=== PATIENT | male | born 1980 | race Two or more races ===

== ENCOUNTER → 2020-06-14 11:41 | Outpatient (BNVA) | payer OTHER, SELFPAY | PROVIDERS: PCP Nurse Practitioner Family; Referring Provider Nurse Practitioner Family; Visit Provider Surgery | DX: Z09 Encounter for follow-up examination after completed treatment for conditions other than malignant neoplasm (principal); Z87.2 Personal history of diseases of the skin and subcutaneous tissue | CPT/HCPCS: 99212; 99213 ==

== ENCOUNTER 2020-07-17 11:59 | Day surgery (SDC) | payer OTHER, SELFPAY ==
[2020-07-12 11:20] VITALS: BMI 27.6
[2020-07-17 12:19] VITALS: BP 118/93; PULSE 86; RESP 16; TEMP 36.6; O2SAT 96
--- NOTE | 2020-07-17 12:37 | MHC.SHP ---
Pre-Procedural Eval Section B Chief Complaint: Family Hx of Colon Cancer in father Details of Present Illness: father with CRC Relevant Family History (Specify if Yes): Yes Relevant Social History: Alcohol Use Present Medications: see Short Stay Collaborative assessment Medical History: Significant History (smoker) History of Previous Operations: Relevant previous surgery/procedure and date(s) (excision mass arm) Allergies: Allergies Allergy/AdvReac Type Severity Reaction Status Date / Time No Known Allergies Allergy Verified 06/14/20 11:57 [No Known Allergies*] Review of Systems Sugical H&P ROS: Negative: Constitution, Cardiovascular, Respiratory, Neurological, Psychiatric, Hem-Onc, Allergic/Immunologic, Gastrointestinal, Genitourinary, Musculoskeletal, Integumentary, Endocrine and Eyes/Ears/Nose/Throat Exam Surgical H&P Exam: Significant Findings: Extremities (scar left arm) Plan Diagnosis/Plan: Unchanged Patient has been examined and remains a candidate for the planned procedure
--- NOTE | 2020-07-17 12:40 | PC.NURSE ---
while iv starting patient was diaphoretic and heart rate started to drop. supine, cold cloth applied, fluids wide open.
[2020-07-17 12:42] VITALS: BP 126/83; PULSE 58
--- NOTE | 2020-07-17 12:47 | PC.NURSE ---
md perkins aware of patients near vagal response to iv insertion
--- NOTE | 2020-07-17 12:54 | HO.ANESPROP2 ---
HPI - Anesthesia Eval Consult details Narrative: 39 M for coloncscopy [facility] Past Medical History Medical History Epidermal inclusion cyst Social History Social History Alcohol intake: current Smoking Status: Current every day smoker Advance Directives: No Advance Directives Information Provided: No Advance Directives on File: No Meds Allergies Allergy/AdvReac Type Severity Reaction Status Date / Time No Known Allergies Allergy Verified 06/14/20 11:57 [No Known Allergies*] Exam Exam Date and Time: July 17, 2020 1254 Height,Weight and Vital Signs: Height 5 ft 10 in Weight 87.543 kg Last Vital Signs Temp 97.9 F 07/17/20 12:19 Pulse 58 07/17/20 12:42 Resp 16 07/17/20 12:19 BP 126/83 07/17/20 12:42 Pulse Ox 96 07/17/20 12:19 Airway Mallampati Class: II TM Dist: >3cm Neck ROM: Full Loose/Missing/Broken Teeth: No Heart: rrr Lungs: nl Other: ao Assessment and Plan Assessment Anesthesia Assessment: Anesthesia Plan Discussed and Chart Reviewed Final Anesthetic Review NPO: Yes ASA Class: I Final Preanesthetic Review: No Changes in Pt Med Stat, Meds/Allgs Chart Reviewed, Consent Obtained/Reviewed and Anes Risks/Benef Reviewed Patient Risk: Low Procedure Risk: Low Anesthetic Plan Anesthetic Plan: MAC: Disposition: Standard PACU
[2020-07-17] MEDS: Lactated Ringers 1,000 ML 50 ML IVCONT (12:55)
--- NOTE | 2020-07-17 13:15 | PM.OP ---
Brief Operative Note Date of Service: 07/17/20 Pre-op diagnosis: rectal bleeding, FH CRC in father aged 50's Post-op diagnosis: same Procedure: see op note Surgeon: Oni Pierre MD Anesthesia: MAC Estimated blood loss (mL): 0 Condition: stable Disposition: PACU
--- NOTE | 2020-07-17 13:16 | W.PM.OPN ---
Operative Note Operative Note Date of Service: 07/17/20 Narrative: Operative Information Procedure Description: Colonoscopy COLONOSCOPY Instrument: Olympus variable stiffness pediatric scope 190L Colonoscopy Monitoring: Vital signs and clinical assessment, continuous EKG monitoring, Pulse oximetry, Carbon Dioxide monitoring and blood pressure monitoring were done throughout the procedure. Colon withdrawal time was 6 minutes. Procedure: The patient was placed in the left lateral decubitis position and pre-procedure medications were administered. After a digital rectal examination of the ano-rectum, the video colonoscope was inserted into the rectum and advanced through the colon to the cecum/TI. The colonoscope was slowly withdrawn in a retrograde panoramic fashion and the colon mucosa was carefully examined including a retroflexed view of the rectum. Findings and interventions are described below. Procedure Difficulty:easy Findings: Terminal Ileum-normal Cecum:normal Ascending Colon: normal Transverse Colon -normal Descending Colon:normal Sigmoid Colon: normal Rectum: Retroflexion with small inflammed internal hemorrhoids with red farris indicating recent bleeding, grade I, 10 mm sessile polyp removed with cold snare and retrieved Anorectum - normal Colon preparation: [place] Bowel Preparation Scale Right colon; 3 Transverse colon: 3 Left colon; 3 (0 = Unprepared colon segment with mucosa not seen due to solid stool that cannot be cleared. 1 = Portion of mucosa of the colon segment seen, but other areas of the colon segment not well seen due to staining, residual stool and/or opaque liquid. 2 = Minor amount of residual staining, small fragments of stool and/or opaque liquid, but mucosa of colon segment seen well. 3 = Entire mucosa of colon segment seen well with no residual staining, small fragments of stool or opaque liquid) Impression and Post Procedure Diagnosis: internal hemorrhoids polyp Plan: High fiber diet leaflet Avoid straining at stool, epsom salts and sitz bath prn, anusol supps or cream prn, if rectal bleeding persists then refer to Dr Buck for further treatment Repeat Colonoscopy in 5 years or earlier if clinically indicated Above findings were reviewed with the patient and relevant handouts were provided if indicated.
[2020-07-17 13:20] VITALS: BP 109/67; PULSE 73; RESP 20; TEMP 36.6; O2SAT 95
[2020-07-17 13:38] VITALS: BP 123/79; PULSE 58; RESP 16; TEMP 36.6; O2SAT 96
== END 2020-07-17 14:15 | disposition home or self-care (01) ==
PROVIDERS: PCP Nurse Practitioner Family; Visit Provider Internal Medicine Gastroenterology
PROC: 0DJD8ZZ Inspection of Lower Intestinal Tract, Via Natural or Artificial Opening Endoscopic (ICD-10-PCS; CPT 45378; principal; 2020-07-17 13:30)
DX: K62.5 Hemorrhage of anus and rectum (principal); Z80.0 Family history of malignant neoplasm of digestive organs; Z83.71 Family history of colonic polyps; K64.0 First degree hemorrhoids; F17.210 Nicotine dependence, cigarettes, uncomplicated
CPT/HCPCS: 45385; 88305

== ENCOUNTER 2020-08-10 08:54 | Outpatient (REF) | payer OTHER, SELFPAY ==
[2020-08-10 09:44] LABS: MANUAL DIFF FLAG NO
[2020-08-10 09:55] LABS: Basophils Absolute Auto 0.1 X10*3/uL (0.0-0.2); Basophils Percent Auto 1.1 % (0-2); Eosinophils Absolute Auto 0.1 X10*3/uL (0.0-0.4); Eosinophils Percent Auto 1.6 % (0-4); Hematocrit 48.4 % (42-52); Hemoglobin 16.6 g/dl (14.0-18.0); Imm Gran Abs Auto 0.06 X10*3/uL (0.00-0.03); Imm Gran Pct Auto 0.7 % (0.0-0.4); Lymphocytes Absolute Auto 2.6 X10*3/uL (1.2-4.9); Mean Corpuscular HGB Conc 34.3 g/dl (31.0-36.0); Mean Corpuscular Hemoglobin 32.9 pg (27.0-33.0); Mean Corpuscular Volume 95.8 fL (80-98); Mean Platelet Volume 9.1 fL (9.4-12.4); Monocytes Absolute Auto 0.8 X10*3/uL (0.1-1.2); Monocytes Percent Auto 9.1 % (2-11); Neutrophils Absolute Auto 4.9 X10*3/uL (2.0-8.3); Neutrophils Percent Auto 57.5 % (45-73); Platelet Count 304 X10*3/uL (160-400); Red Blood Count 5.05 X10*6/uL (4.60-5.80); Red Cell Distribution Width 13.2 % (11.0-16.0); White Blood Count 8.6 X10*3/uL (4.8-10.8)
[2020-08-10 10:28] LABS: Anion Gap 15 (12-20); Blood Urea Nitrogen 12 mg/dL (9-16); Calcium 9.3 mg/dL (8.4-10.2); Carbon Dioxide 27 mmol/L (22-29); Chloride 102 mmol/L (96-108); Estimated Glomerular Filt Rate > 60; Glucose Fasting 95 mg/dL (60-99); Potassium 4.3 mmol/l (3.3-5.1); Sodium 140 mmol/L (135-145)
== END 2020-08-10 08:55 | disposition home or self-care (01) ==
LOC: HO.LAB 08:54
PROVIDERS: PCP Internal Medicine; Referring Provider Nurse Practitioner Family; Visit Provider Internal Medicine
DX: Z20.828 Contact with and (suspected) exposure to other viral communicable diseases (principal)
CPT/HCPCS: 36415; 80048; 85025; C9803; U0003

== ENCOUNTER 2021-02-12 13:25 | Emergency (ER) | payer OTHER, SELFPAY ==
--- NOTE | ~2021-02-12 | XR_ITS ---
EXAMINATION: RIGHT SHOULDER AND SCAPULA CLINICAL INFORMATION: Injury with pain COMPARISON: None TECHNIQUE: 2 views right shoulder and one view scapula FINDINGS: No acute scapular fracture is identified. No acute fracture or dislocation of the right shoulder is seen. No narrowing or spurring about the glenohumeral joint is seen. No widening of the coracoclavicular space is seen. There is a bony density seen overlying the humeral head measuring approximately 4 mm in diameter. This may represent bone island or calcified structure overlying the humeral head. No destructive lytic or sclerotic lesions of the humeral head seen. XR/XR shoulder RT min 2V IMPRESSION: No acute fracture or dislocation of the right shoulder or scapula.
--- NOTE | ~2021-02-12 | XR_ITS ---
EXAMINATION: RIGHT SHOULDER AND SCAPULA CLINICAL INFORMATION: Injury with pain COMPARISON: None TECHNIQUE: 2 views right shoulder and one view scapula FINDINGS: No acute scapular fracture is identified. No acute fracture or dislocation of the right shoulder is seen. No narrowing or spurring about the glenohumeral joint is seen. No widening of the coracoclavicular space is seen. There is a bony density seen overlying the humeral head measuring approximately 4 mm in diameter. This may represent bone island or calcified structure overlying the humeral head. No destructive lytic or sclerotic lesions of the humeral head seen. XR/XR scapula RT IMPRESSION: No acute fracture or dislocation of the right shoulder or scapula.
[2021-02-12 13:53] VITALS: BP 148/101; PULSE 61; RESP 18; TEMP 36.8; O2SAT 98; BMI 27.0
--- NOTE | 2021-02-12 16:04 | ED.EXTPRO ---
HPI - Extremity Problem General Chief complaint: Extremity Injury, Upper Stated complaint: shoulder to arm pain Time Seen by Provider: 02/12/21 15:29 History of Present Illness HPI Narrative: Patient complains of right shoulder and right scapular pain that radiates intermittently with tingling and pain down to his fingertips, this is been going on for some months, he injured it in a fall several months ago, denies any neck pain no weakness no loss of sensation Related Data Previous Rx's Medication Instructions Recorded nicotine 14 mg/24 hr daily 1 patch TRANSDERMAL DAILY 28 Days 12/28/20 transdermal patch #28 ea nicotine 21 mg/24 hr daily 1 patch TRANSDERMAL DAILY 28 Days 12/28/20 transdermal patch #28 ea nicotine 7 mg/24 hr daily 1 patch TRANSDERMAL Q24H 28 Days 12/28/20 transdermal patch #28 ea ibuprofen 600 mg PO Q6H PRN #20 tab 02/12/21 Allergies Allergy/AdvReac Type Severity Reaction Status Date / Time No Known Allergies Allergy Verified 09/04/20 15:38 [No Known Allergies*] Review of Systems Review of Systems: positive for right shoulder pain radiating to right fingers, patient did have all a knee injury a fall injury 2 months ago and has had pain and tingling since Negatives are no fever no chills no dizziness no weakness no fainting no loss of consciousness no headache no neck pain no chest pain no shortness of breath no new loss of sensation no weakness no skin rash Yes all other systems are reviewed and are negative [facility] Past Medical History Source: nursing notes reviewed Medical History Epidermal inclusion cyst Sleep apnea Family History Family History Unknown Diabetes Social History Social History (Updated 02/19/21 @ 08:27 by Page Reddy CMA) Alcohol intake: current Current occupational status: employed Current occupation: [employer] Physical Exam Vital Signs: Vital Signs: Last Vital Signs Temp 98.2 F 02/12/21 13:53 Pulse 61 02/12/21 13:53 Resp 18 02/12/21 13:53 BP 148/101 H 02/12/21 13:53 Pulse Ox 98 02/12/21 13:53 Body Mass Index 27.0 general appearance is no distress Head is normocephalic atraumatic Neck is supple and nontender with full range of motion The chest is clear to auscultation bilateral with no tenderness to chest wall The back has full range of motion The extremities the right shoulder had limited range of motion due to discomfort there was no redness warmth or swelling there was tenderness over the posterior shoulder and scapula, there was also deltoid and anterior tenderness, skin was otherwise normal, neurovascular intact distal with good symmetric sensation and histology aide strength Skin no rash Course Course Course Narrative: x-ray of shoulder and scapula were negative and patient will follow with orthopedics for further evaluation Discharge Plan Discharge Clinical Impression: Shoulder sprain Patient Disposition: Home, Self-Care Additional Instructions: Shoulder x-ray which shows the bones did not reveal any bony injury Many shoulder injuries are 2 the soft tissue so most important is follow with an orthopedist They will evaluate you for other possible treatments such as steroid shot physical therapy or other imaging if needed Return any time any concerns Prescriptions: New ibuprofen 600 mg tablet 600 mg PO Q6H PRN (Reason: pain) Qty: 20 RF: 0 No Action nicotine 7 mg/24 hr patch 24 hour 1 patch transdermal Q24H 28 Days Qty: 28 RF: 0 nicotine 21 mg/24 hr patch 24 hour 1 patch transdermal DAILY 28 Days Qty: 28 RF: 0 nicotine 14 mg/24 hr patch 24 hour 1 patch transdermal DAILY 28 Days Qty: 28 RF: 0 Referrals: Drew Peña MD [Physician] - 2 days (Right shoulder sprain) Interventions: ED Discharge Assessment Last Done: 02/12/21 16:12 Discharge Date/Time: 02/12/21 16:13
== END 2021-02-12 16:13 | disposition home or self-care (01) ==
PROVIDERS: Emergency Provider Emergency Medicine Emergency Medical Services; PCP Internal Medicine
DX: S43.401A Unspecified sprain of right shoulder joint, initial encounter (principal); W19.XXXA Unspecified fall, initial encounter; M25.511 Pain in right shoulder; Y93.9 Activity, unspecified; Y92.9 Unspecified place or not applicable; Y99.9 Unspecified external cause status
CPT/HCPCS: 73010; 73030; 99283

== ENCOUNTER → 2021-02-19 08:19 | Outpatient (BNVA) | payer OTHER, SELFPAY | PROVIDERS: PCP Internal Medicine; Visit Provider Physician Assistant | DX: M54.12 Radiculopathy, cervical region (principal) | CPT/HCPCS: 99202 ==

== ENCOUNTER 2021-08-30 10:23 | Outpatient (REF) | payer OTHER, SELFPAY ==
[2021-08-30 11:49] LABS: COVID-19 Test Positive (Negative)
== END 2021-08-30 10:24 | disposition home or self-care (01) ==
LOC: HO.LAB 10:23
PROVIDERS: Visit Provider Internal Medicine
DX: Z20.822 Contact with and (suspected) exposure to COVID-19 (principal)
CPT/HCPCS: 36415; 87635; C9803

== ENCOUNTER 2022-01-30 23:12 | Emergency (ER) | payer OTHER, SELFPAY ==
[2022-01-30 23:21] VITALS: BP 148/90; PULSE 105; RESP 16; TEMP 37; O2SAT 96; BMI 28.3
[2022-01-30 23:39] LABS: MANUAL DIFF FLAG NO
[2022-01-30 23:41] LABS: Basophils Absolute Auto 0.1 X10*3/uL (0.0-0.2); Basophils Percent Auto 0.9 % (0-2); Eosinophils Absolute Auto 0.1 X10*3/uL (0.0-0.4); Eosinophils Percent Auto 1.3 % (0-4); Hematocrit 41.4 % (42.0-52.0); Imm Gran Abs Auto 0.01 X10*3/uL (0.00-0.03); Imm Gran Pct Auto 0.1 % (0.0-0.4); Lymphocytes Absolute Auto 1.9 X10*3/uL (1.2-4.9); Lymphocytes Percent Auto 24.9 % (20-40); Mean Corpuscular HGB Conc 33.8 g/dl (31.0-36.0); Mean Corpuscular Hemoglobin 30.8 pg (27.0-33.0); Mean Corpuscular Volume 91.2 fL (80.0-98.0); Mean Platelet Volume 8.7 fL (9.4-12.4); Monocytes Absolute Auto 0.5 X10*3/uL (0.1-1.2); Neutrophils Percent Auto 65.8 % (45-73); Platelet Count 324 X10*3/uL (160-400); Red Blood Count 4.54 X10*6/uL (4.60-5.80); Red Cell Distribution Width 13.6 % (11.0-16.0); White Blood Count 7.6 X10*3/uL (4.8-10.8)
--- NOTE | 2022-01-30 23:54 | ED.ABDPAIN ---
HPI - Abdominal Pain General Chief Complaint: Abdominal Pain Stated Complaint: abdominal pain Time Seen by Provider: 01/30/22 23:46 Source: patient Mode of arrival: ambulatory Limitations: no limitations History of Present Illness HPI narrative: 41-year-old male came in for evaluation of left lower quadrant pain. Left lower quadrant pain started about a year ago, pain is localized to the left lower quadrant area, no radiation, pain is intermittent, described as moderate, associated with blood in the stool, no relieving factor, no aggravating factor, no nausea, vomiting, diarrhea fevers, or chills. Patient had similar presentation a year ago had colonoscopy which revealed inflamed internal hemorrhoid in the rectum but otherwise normal colonoscopy. Related Data Previous Rx's Medication Instructions Recorded nicotine 14 mg/24 hr daily 1 patch TRANSDERMAL DAILY 28 Days 03/19/21 transdermal patch #28 ea nicotine 21 mg/24 hr daily 1 patch TRANSDERMAL DAILY 28 Days 03/19/21 transdermal patch #28 ea nicotine 7 mg/24 hr daily 1 patch TRANSDERMAL Q24H 14 Days 03/19/21 transdermal patch #14 ea Allergies Allergy/AdvReac Type Severity Reaction Status Date / Time varenicline [From Chantix] AdvReac Intermediate vivid Verified 03/19/21 11:45 dreams Review of Systems Review of Systems All other systems are reviewed and are negative Constitutional: Reports as per HPI and Reports no additional constitutional complaints Eyes: Reports as per HPI and Reports no additional eye complaints Reports system reviewed and no additional complaints, except as documented Cardiovascular: Reports as per HPI and Reports no additional cardiovascular complaints Respiratory: Reports as per HPI and Reports no additional respiratory complaints Gastrointestinal: Reports as per HPI and Reports no additional gastrointestinal complaints Genitourinary: Reports no additional female genitourinary complaints Musculoskeletal: Reports no additional musculoskeletal complaints Skin/Breast: Reports system reviewed and no additional complaints, except as docu Psychiatric: Reports no additional psychiatric complaints Endocrine: Reports no additional endocrine complaints Hematologic/Lymphatic: Reports no additional hematologic/lymphatic complaints Allergic/Immunologic: Reports no additional allergic/immunologic complaints Reports system reviewed and no additional complaints, except as documented and Reports Abnormal speech present [facility] Past Medical History Medical History Encounter for smoking cessation counseling Epidermal inclusion cyst Sleep apnea Family History Family History Unknown Diabetes Social History Social History Housing: Apartment Alcohol intake: current Alcohol intake frequency: a few times a week Alcohol type: other Patient Tobacco Use Status: Current everyday Tobacco user Tobacco use type: Cigarette Cigarettes Per Day: 10 e-Cigarette/Vaping Use: Never Used Second Hand Smoke Exposure: No Advance Directives: No service: No Current occupational status: employed Current occupation: [employer] Current occupational exposures/hazards: No Physical Exam ED Vital Signs: Vital Signs - 24 hr 01/30/22 23:21 01/31/22 02:13 Temperature 98.6 F Pulse Rate 105 H 92 Respiratory Rate 16 16 Blood Pressure 148/90 H 132/87 Pulse Oximetry 96 98 BMI result Body Mass Index 28.3 Vital signs have been reviewed as appeared to be correct. Blood pressure normal. Heart rate elevated. Respiration rate normal. Temperature normal. Oxygen saturation normal. Appearance: Alert. Oriented X3. No acute distress. Head: Normal external exam. Normocephalic. Atraumatic. No Genao signs noted. No raccoon eyes noted Eyes: PERRLA. EOMI. Conjunctiva and sclera normal. Eyelids normal. ENT: TM's Normal. Pharynx normal. Uvula midline. Moist mucous membranes. No trismus noted. No drooling noted. No muffled voice noted. Neck: Normal inspection. Neck supple. FROM. No adenopathy. Thyroid Normal. No meningeal signs. No neck mass noted. CVS: Normal heart rate and rhythm. Heart sound normal. No murmurs noted. Pulses normal throughout. Respiratory: No respiratory distress. Painless inspiration. Breath sounds normal. No wheezes/rales/rhonchi noted. Chest nontender. No accessory muscle usage noted or decreased air movement noted. Abdomen: Soft and nontender. Bowel sounds normal in all 4 quadrants. No distention noted. No organomegaly noted. No visible injury noted. Rectal exam: Deferred as per patient. Patient declined any current or active bleeding at this point. Back: No CVA tenderness. Full range of motion noted. Skin: Skin warm and dry. Normal skin color. Normal skin turgor. No rashes/lesions/lacerations noted. Extremities: No lower extremity edema. Extremities exhibit normal range of motion. Extremities nontender. Neuro: Oriented X 3. Cranial nerve exam: II-XII are grossly intact No motor deficit. No sensory deficit. Reflexes normal. Course Course Course Narrative: Assessment and plan. 41-year-old came in for acute on chronic lower abdominal pain with intermittent rectal bleeding, patient had a previous colonoscopy a year ago which showed internal hemorrhoid, patient deferred rectal exam today, patient appeared comfortable with unremarkable labs today physical exam revealed no acute abdominal concern. Will discharge the patient to follow-up with surgery as an outpatient. MDM - Abdominal Pain Lab Data Attestation: I reviewed the patient's lab results. Result diagrams: 01/30/22 23:36 01/30/22 23:36 Labs: Lab Results 01/30/22 01/30/22 01/31/22 Range/Units 23:36 23:36 00:07 WBC 7.6 (4.8-10.8) X10*3/uL RBC 4.54 L (4.60-5.80) X10*6/uL Hgb 14.0 (14.0-18.0) g/dl Hct 41.4 L (42.0-52.0) % MCV 91.2 (80.0-98.0) fL MCH 30.8 (27.0-33.0) pg MCHC 33.8 (31.0-36.0) g/dl RDW 13.6 (11.0-16.0) % Plt Count 324 (160-400) X10*3/uL MPV 8.7 L (9.4-12.4) fL Immature Gran % (Auto) 0.1 (0.0-0.4) % Neut % (Auto) 65.8 (45-73) % Lymph % (Auto) 24.9 (20-40) % Pitt % (Auto) 7.0 (2-11) % Eos % (Auto) 1.3 (0-4) % Baso % (Auto) 0.9 (0-2) % Lymph # (Auto) 1.9 (1.2-4.9) X10*3/uL [place] # (Auto) 0.5 (0.1-1.2) X10*3/uL Eos # (Auto) 0.1 (0.0-0.4) X10*3/uL Baso # (Auto) 0.1 (0.0-0.2) X10*3/uL Abs Immat Gran (auto) 0.01 (0.00-0.03) X10*3/uL Absolute Neuts (auto) 5.0 (2.0-8.3) x10*3/uL Absolute Nucleated RBC 0.000 (0.0-0.012) X10*3/uL Nucleated RBC % (auto) 0.0 (0.0-0.2) /100WBC Sodium 136 (135-145) mmol/L Potassium 3.9 (3.3-5.1) mmol/L Chloride 107 (96-108) mmol/L Carbon Dioxide 18 L (22-29) mmol/L Anion Gap 15 (12-20) BUN 15 (9-16) mg/dL Creatinine 1.15 (0.5-1.4) mg/dL Estim Creat Clear Calc 92.3 Estimated GFR > 60 Random Glucose 131 H (60-115) mg/dL Calcium 9.1 (8.4-10.2) mg/dL Total Bilirubin 0.2 (0.0-1.0) mg/dL AST 25 (5-37) U/L ALT 29 (0-40) U/L Alkaline Phosphatase 79 (39-117) U/L Total Protein 6.9 (6.5-8.0) g/dL Albumin 3.9 (3.5-5.0) g/dL Urine Color YELLOW Urine Appearance CLEAR Urine pH 5.5 (5.0-8.0) Ur Specific Clover >= 1.030 H (1.005-1.025) Urine Protein NEG (NEG-TRACE) MG/DL Urine Glucose (UA) NEG (NEG) MG/DL Urine Ketones 15 (NEG) MG/DL Urine Blood 2+ H (NEG) Urine Nitrite NEG (NEG) Ur Leukocyte Esterase NEG (NEG) Urine RBC 1-4 (0) /HPF Urine WBC 0-2 (0-4) /HPF Ur Squamous Epith Cells NONE /LPF Urine Bacteria NONE /LPF Discharge Plan Discharge Clinical Impression: Abdominal pain, Internal hemorrhoid Patient Disposition: Home, Self-Care Instructions: Hemorrhoids (ED) Prescriptions: No Action nicotine 21 mg/24 hr patch 24 hour 1 patch transdermal DAILY 28 Days Qty: 28 0RF nicotine 14 mg/24 hr patch 24 hour 1 patch transdermal DAILY 28 Days Qty: 28 0RF nicotine 7 mg/24 hr patch 24 hour 1 patch transdermal Q24H 14 Days Qty: 14 0RF Referrals: Max Lucas MD [Physician] -
[2022-01-30 23:57] LABS: Alanine Aminotransferase 29 U/L (0-40); Albumin Level 3.9 g/dL (3.5-5.0); Alkaline Phosphatase 79 U/L (39-117); Anion Gap 15 (12-20); Aspartate Amino Transferase 25 U/L (5-37); Bilirubin Total 0.2 mg/dL (0.0-1.0); Blood Urea Nitrogen 15 mg/dL (9-16); Calcium 9.1 mg/dL (8.4-10.2); Carbon Dioxide 18 mmol/L (22-29); Chloride 107 mmol/L (96-108); Creatinine Clr Calc Pharmacy 92.3; Estimated Glomerular Filt Rate > 60; Glucose Random 131 mg/dL (60-115); Potassium 3.9 mmol/L (3.3-5.1); Sodium 136 mmol/L (135-145)
[2022-01-31 00:03] LABS: Total Protein 6.9 g/dL (6.5-8.0)
[2022-01-31 00:13] LABS: Appearance Urine CLEAR; Color Urine YELLOW; Glucose Urine UA NEG (NEG); Leukocyte Esterase Urine NEG (NEG); Nitrite Urine NEG (NEG); PH 5.5 (5.0-8.0); Specific Gravity - Urine >= 1.030 (1.005-1.025); UACC Culture Trigger NO; Urine Blood 2+ (NEG); Urine Ketones 15 MG/DL (NEG); Urine Protein NEG (NEG-TRACE)
[2022-01-31 00:28] LABS: WBC Urine 0-2 /HPF (0-4)
[2022-01-31 02:13] VITALS: BP 132/87; PULSE 92; RESP 16; O2SAT 98
== END 2022-01-31 02:30 | disposition home or self-care (01) ==
PROVIDERS: Emergency Provider Emergency Medicine; PCP Internal Medicine
DX: R10.32 Left lower quadrant pain (principal); K64.8 Other hemorrhoids
CPT/HCPCS: 36415; 80053; 81001; 85025; 99283; 99284

== ENCOUNTER → 2022-02-04 10:41 | Outpatient (BNVA) | payer OTHER, SELFPAY | PROVIDERS: PCP Internal Medicine; Visit Provider Surgery | DX: K64.9 Unspecified hemorrhoids (principal); R10.32 Left lower quadrant pain | CPT/HCPCS: 46600; 99202 ==

== ENCOUNTER 2022-02-18 08:14 | Outpatient (REF) | payer OTHER, SELFPAY ==
--- NOTE | ~2022-02-18 | CT_ITS ---
EXAMINATION: CT ABDOMEN AND PELVIS WITHOUT CONTRAST CLINICAL INFORMATION: Left lower quadrant pain. COMPARISON: None TECHNIQUE: Multidetector volumetric imaging was performed from the superior aspect of the liver through the pubic symphysis. Sagittal and coronal reformatted images were obtained on the technologist's workstation. This CT examination was performed using dose optimization techniques as appropriate, variously including the following: *Automated exposure control. *Adjustment of mA and/or kV according to patient size (this includes techniques or standardized protocols for targeted exams where dose is matched to indication/reason for exam; i.e. extremities or head). *Use of iterative reconstruction technique. DLP: 497 mGy-cm FINDINGS: LUNG BASES: There is minimal atelectatic changes or scarring at the right lung base. The heart size is normal. LIVER, GALLBLADDER, AND BILIARY TREE: The liver is normal in size, shape, and attenuation. There is a 1.5 cm hypodensity right hepatic lobe, axial image 15/3, adjacent to the right hemidiaphragm likely a cyst or hemangioma. No additional abnormality seen. There is no intrahepatic ductal dilatation. The gallbladder is unremarkable with no evidence of radiopaque gallstones, gallbladder wall thickening, or obvious pericholecystic inflammatory changes. PANCREAS: Unremarkable. SPLEEN: Unremarkable. ADRENAL GLANDS: Unremarkable. KIDNEYS AND URETERS: The kidneys are normal in size, shape, and attenuation. No hydronephrosis, hydroureter, or calculi seen. No perinephric stranding. BLADDER: Unremarkable. GASTROINTESTINAL TRACT: The small and large bowel are unremarkable. The appendix is unremarkable. ABDOMINAL WALL: There is a small umbilical hernia containing fat. LYMPH NODES: Normal. VASCULAR: Unremarkable. PELVIC VISCERA: The prostate gland is normal size with punctate calcification. No inguinal hernia seen. OSSEOUS STRUCTURES: Unremarkable. CT/CT abdomen pelvis wo con IMPRESSION: No acute intra-abdominal process seen. Likely right hepatic cyst or hemangioma. Fleischner guidelines were followed.
== END 2022-02-18 08:15 | disposition home or self-care (01) ==
LOC: HO.CT 08:14
PROVIDERS: Visit Provider Surgery
DX: R10.32 Left lower quadrant pain (principal)
CPT/HCPCS: 74176

== ENCOUNTER → 2022-03-15 12:18 | Day surgery (SDC) | payer OTHER, SELFPAY ==
[2022-03-08 15:50] VITALS: BMI 27.3
--- NOTE | 2022-03-14 10:49 | HO.ANESPROP2 ---
HPI - Anesthesia Eval Consult details Narrative: 41yo M for EUA,Hemorrhoidectomy PMFSH Active Problems Active Problems: All Active Problems (Updated 02/04/22 @ 12:36 by Pantera Buck MD) Left lower quadrant pain (Acute) Bleeding hemorrhoids (Acute) Encounter for smoking cessation counseling (Acute) Cervical radiculopathy (Acute) Sleep apnea (Acute) Epidermal inclusion cyst (Acute) Past Medical History Medical History (Updated 02/04/22 @ 12:36 by Pantera Buck MD) Bleeding hemorrhoids Encounter for smoking cessation counseling Epidermal inclusion cyst Left lower quadrant pain Sleep apnea Family History Family History Unknown Diabetes Father Cancer of unknown origin Social History Social History Housing: Apartment Alcohol intake: current Alcohol intake frequency: a few times a week Alcohol type: other Patient Tobacco Use Status: Current everyday Tobacco user Tobacco use type: Cigarette Cigarettes Per Day: 10 e-Cigarette/Vaping Use: Never Used Second Hand Smoke Exposure: No service: No Current occupational status: employed Current occupation: [employer] Current occupational exposures/hazards: No Meds Allergies Allergy/AdvReac Type Severity Reaction Status Date / Time varenicline [From Chantix] AdvReac Intermediate vivid Verified 02/04/22 11:56 dreams Exam Exam Date and Time: March 14, 2022 1049 Height,Weight and Vital Signs: Height 5 ft 9 in Weight 83.915 kg Pertinent Lab Results Pertinent Lab Results: Laboratory Tests 01/30/22 01/30/22 23:36 23:36 WBC 7.6 Hgb 14.0 Hct 41.4 L Plt Count 324 Sodium 136 Potassium 3.9 Chloride 107 Carbon Dioxide 18 L BUN 15 Creatinine 1.15 Assessment and Plan Assessment Anesthesia Assessment: Chart Reviewed
[2022-03-15 12:36] VITALS: BMI 26.0
[2022-03-15 12:57] VITALS: BP 147/93; PULSE 67; RESP 16; TEMP 36.4; O2SAT 96
--- NOTE | 2022-03-15 14:04 | PC.NURSE ---
Patient informed of significant delay in room, patient originally wanted to wait as he had pre scheduled time off from work. Spoke with Audrey Gonzalez in office, able to reschedule patient for Friday03/19/22 1220 OR time. Patient given card with new date and arrival 1045 and informed we would call Friday to confirm date & time. Patient agreeable to plan. 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
== END ==
PROVIDERS: PCP Internal Medicine; Visit Provider Surgery
DX: K64.8 Other hemorrhoids (principal); Z53.8 Procedure and treatment not carried out for other reasons; G47.33 Obstructive sleep apnea (adult) (pediatric)

== ENCOUNTER 2022-03-19 10:44 | Day surgery (SDC) | payer OTHER, SELFPAY ==
--- NOTE | 2022-03-18 08:39 | P.CONAN_ITS ---
Documented by User: Jessica Valera NP 03/18/22 08:41 HPI - Anesthesia Eval Consult details Narrative: 41yo M for EUA,Hemorrhoidectomy PMFSH Active Problems Active Problems: All Active Problems (Updated 02/04/22 @ 12:36 by Pantera Buck MD) Left lower quadrant pain (Acute) Bleeding hemorrhoids (Acute) Encounter for smoking cessation counseling (Acute) Cervical radiculopathy (Acute) Sleep apnea (Acute) Epidermal inclusion cyst (Acute) Past Medical History Medical History Bleeding hemorrhoids Encounter for smoking cessation counseling Epidermal inclusion cyst Left lower quadrant pain Sleep apnea Family History Family History Unknown Diabetes Father Cancer of unknown origin Social History Social History Housing: Apartment Alcohol intake: current Alcohol intake frequency: a few times a week Alcohol type: other Patient Tobacco Use Status: Current everyday Tobacco user Tobacco use type: Cigarette Cigarettes Per Day: 10 e-Cigarette/Vaping Use: Never Used Second Hand Smoke Exposure: No service: No Current occupational status: employed Current occupation: [employer] Current occupational exposures/hazards: No Meds Allergies Allergy/AdvReac Type Severity Reaction Status Date / Time varenicline [From Chantix] AdvReac Intermediate vivid Verified 03/19/22 10:30 dreams Exam Exam Date and Time: March 18, 2022 0839 Pertinent Lab Results Pertinent Lab Results: Laboratory Tests 01/30/22 01/30/22 23:36 23:36 WBC 7.6 Hgb 14.0 Hct 41.4 L Plt Count 324 Sodium 136 Potassium 3.9 Chloride 107 Carbon Dioxide 18 L BUN 15 Creatinine 1.15 Assessment and Plan Assessment Anesthesia Assessment: Chart Reviewed Documented by User: Eduardo Lemus MD 03/19/22 15:54 HPI - Anesthesia Eval Consult details Narrative: 41yo M for EUA,Hemorrhoidectomy Smoker [facility] Past Medical History Medical History Bleeding hemorrhoids Encounter for smoking cessation counseling Epidermal inclusion cyst Left lower quadrant pain Sleep apnea Family History Family History Unknown Diabetes Father Cancer of unknown origin Family history of problems with anesthesia: No Surgical History History of Problems with Anesthesia: No Social History Social History Housing: Apartment Alcohol intake: current Alcohol intake frequency: a few times a week Alcohol type: other Patient Tobacco Use Status: Current everyday Tobacco user Tobacco use type: Cigarette Cigarettes Per Day: 10 e-Cigarette/Vaping Use: Never Used Second Hand Smoke Exposure: No service: No Current occupational status: employed Current occupation: [employer] Current occupational exposures/hazards: No Meds Allergies Allergy/AdvReac Type Severity Reaction Status Date / Time varenicline [From Chantix] AdvReac Intermediate vivid Verified 03/19/22 10:30 dreams Exam Airway Mallampati Class: III TM Dist: >3cm Neck ROM: Full Loose/Missing/Broken Teeth: Yes (Upper front tooth chipped , upper implant , poor dentition globally ) Heart: S1,S2 Lungs: b/l breath sounds Assessment and Plan Assessment Anesthesia Assessment: Anesthesia Plan Discussed Final Anesthetic Review Family History of Problems with Anesthesia: No History of Problems with Anesthesia: No NPO: Yes ASA Class: II Final Preanesthetic Review: Meds/Allgs Chart Reviewed, Consent Obtained/Reviewed and Anes Risks/Benef Reviewed Patient Risk: Intermediate Procedure Risk: Intermediate Anesthetic Plan Anesthetic Plan: GA Disposition: Standard PACU
[2022-03-19] VITALS (7 sets, daily range): BP systolic 124–149; BP diastolic 63–93; PULSE 53–81; RESP 16–18; TEMP 36.4–37; O2SAT 96–100; BMI 25.8
[2022-03-19] MEDS: Lactated Ringers 1,000 ML 100 ML IVCONT (11:58)
--- NOTE | 2022-03-19 13:08 | MHC.SHP ---
Pre-Procedural Eval Section A Date of Service: 03/19/22 Section B Chief Complaint: Unspecified hemorrhoids Details of Present Illness: chronically bleeding hemorrhoids Relevant Family History (Specify if Yes): No Relevant Social History: Tobacco Use Present Medications: see Short Stay Collaborative assessment Medical History: Significant History ( sleep apnea, smoking) Allergies: Allergies Allergy/AdvReac Type Severity Reaction Status Date / Time varenicline [From Chantix] AdvReac Intermediate vivid Verified 03/19/22 10:30 dreams Review of Systems Sugical H&P ROS: Negative: Constitution, Cardiovascular, Respiratory, Neurological, Psychiatric, Hem-Onc, Allergic/Immunologic, Gastrointestinal, Genitourinary, Musculoskeletal, Integumentary, Endocrine and Eyes/Ears/Nose/Throat Exam Surgical H&P Exam: Normal: HEENT, Normal: Heart, Normal: Lungs, Normal: Extremities, Normal: Abdomen, Normal: Skin and Normal: Neurological Exam Comment: internal external hemorrhoids Plan Diagnosis/Plan: Unchanged I have reviewed the history and physical and performed a pertinent physical examination on my patient. No changes have occurred unless specified.
--- NOTE | 2022-03-19 14:11 | W.PM.OPN ---
Operative Note Operative Note Date of Service: 03/19/22 Narrative: Preop diagnosis: Internal external hemorrhoids with pain and bleeding Postop diagnosis: The same Procedure: Exam under anesthesia hemorrhoidectomy x2 columns Surgeon: Pantera Buck MD The patient is a 41-year-old male was had chronic problems with pain and bleeding with his hemorrhoids. Examination in the office revealed a bulky internal external Shyla column the left and small amounts of the right He understood the technique of hemorrhoidectomy. He was aware of the risks, benefits, and alternatives. He was brought to the operating room placed in prone ish-knife position under general anesthesia via endotracheal tube. The buttocks were retracted with wide tape laterally. The perianal area was prepped and draped in the usual sterile fashion. A surgical time-out was done. The patient received Cefotan 2 g IV preoperatively. Examination of the anal orifice revealed a hemorrhoidal column on the left. Small hemorrhoids were seen on the right side. I inserted abuse Roca retractor and then the anal canal circumferentially. Again, a good sized internal and external hemorrhoidal column was seen on the left. another hemorrhoidal column was seen on the right I applied a Mackenzie grasper at the hemorrhoidal column the left retract this out into the field. Applied a tliago-ce-sulqo stitch at its pedicle past the dentate line using chromic 3-0. I made an incision around this hemorrhoidal column to the perianal skin using blade 15. I excised this hemorrhoidal column above the plane of sphincters along this incision using Metzenbaum scissors. This incision was closed with a running chromic 3-0 stitch. Additional hemostatic diysbj-lj-xdxye sutures were also placed The same procedure was duplicated on the hemorrhoidal column on the right. Again I retracted the hemorrhoidal column with a Mackenzie grasper. I applied if cduxrv-sl-utzxv stitch at the pedicle. I made an incision around this hemorrhoidal column to the perianal skin with a blade 15. I excised this hemorrhoidal column above the plane of sphincters using scissors. I closed this incision with a running chromic 3-0 stitch. Additional hemostatic sutures were placed . I observed for hemostasis. Once hemostasis was confirmed, I infiltrated the perianal area with Marcaine 0.5% for postop analgesia . I applied a rolled Gelfoam packing into the anal canal. The procedure was then completed. The patient tolerated procedure well. There were no complication noted. Initial final counts of sponges and instruments were correct. Estimated blood loss was about 20 cc . The patient was extubated without difficulty and transferred to the recovery room with stable vital signs.
== END 2022-03-19 15:48 | disposition home or self-care (01) ==
PROVIDERS: PCP Internal Medicine; Visit Provider Surgery
PROC: (CPT 46260; principal; 2022-03-19 12:20)
DX: K64.8 Other hemorrhoids (principal); K64.4 Residual hemorrhoidal skin tags; R10.32 Left lower quadrant pain; G47.33 Obstructive sleep apnea (adult) (pediatric); Z88.8 Allergy status to other drugs, medicaments and biological substances; F17.210 Nicotine dependence, cigarettes, uncomplicated
CPT/HCPCS: 46260; 88304; J1170; J1885; J2250; J3010

== ENCOUNTER → 2022-07-22 13:38 | Outpatient (BNVA) | payer OTHER, SELFPAY | PROVIDERS: PCP Internal Medicine; Visit Provider Surgery | DX: L72.0 Epidermal cyst (principal) | CPT/HCPCS: 99212 ==

== ENCOUNTER 2022-08-19 13:30 | Outpatient (REF) | payer OTHER, SELFPAY | END 2022-08-19 13:31 | disposition home or self-care (01) | LOC: HO.LNP 13:30 | PROVIDERS: PCP Internal Medicine; Visit Provider Surgery | DX: L72.0 Epidermal cyst (principal) | CPT/HCPCS: 11402; 88304 ==

== ENCOUNTER → 2022-09-05 09:13 | Outpatient (BNVA) | payer OTHER, SELFPAY | PROVIDERS: PCP Internal Medicine; Visit Provider Surgery | DX: Z13.89 Encounter for screening for other disorder (principal) ==

== ENCOUNTER 2022-09-16 11:38 | Outpatient (REF) | payer OTHER, SELFPAY ==
[2022-09-16 14:38] LABS: Alanine Aminotransferase 20 U/L (0-40); Albumin Level 4.2 g/dL (3.5-5.0); Alkaline Phosphatase 75 U/L (39-117); Aspartate Amino Transferase 20 U/L (5-37); Bilirubin Direct 0.2 mg/dL (0.0-0.5); Bilirubin Total 0.6 mg/dL (0.0-1.0); C Reactive Protein < 0.04 mg/dL (< or = 0.50); Lipase 16 U/L (8-78)
[2022-09-16 14:52] LABS: TSH reflex Free T4 0.83 uIU/mL (0.32-4.0)
[2022-09-16 15:10] LABS: Folate 2.3 ng/mL (> or = 4.0); Vitamin B12 350 pg/mL (200-900)
[2022-09-21 15:23] LABS: Vitamin D 25-OH, D2 <4 ng/mL; Vitamin D 25-OH, D3 9 ng/mL; Vitamin D 25-OH, Total 9 ng/mL (30-100)
== END 2022-09-16 11:39 | disposition home or self-care (01) ==
LOC: HO.LAB 11:38
PROVIDERS: PCP Internal Medicine; Referring Provider Internal Medicine; Visit Provider Nurse Practitioner Family
DX: R10.9 Unspecified abdominal pain (principal); K59.00 Constipation, unspecified; E55.9 Vitamin D deficiency, unspecified; K52.9 Noninfective gastroenteritis and colitis, unspecified; K21.9 Gastro-esophageal reflux disease without esophagitis
CPT/HCPCS: 36415; 80076; 82306; 82607; 82746; 83690; 84443; 86140; 99202

== ENCOUNTER 2022-09-17 12:03 | Outpatient (REF) | payer OTHER, SELFPAY ==
[2022-09-17 14:14] LABS: CDiff Gene PCR NEGATIVE (Negative)
[2022-09-17 14:46] LABS: Adenovirus F 40/41 Not Detected (Not Detect.); Astrovirus Not Detected (Not Detect.); Campylobacter Not Detected (Not Detect.); Cryptosporidium Not Detected (Not Detect.); Cyclospora cayetanensis Not Detected (Not Detect.); E. coli EAEC Not Detected (Not Detect.); E. coli EPEC Not Detected (Not Detect.); E. coli ETEC Not Detected (Not Detect.); E. coli STEC Not Detected (Not Detect.); Entamoeba histolytica Not Detected (Not Detect.); Giardia lamblia Not Detected (Not Detect.); Norovirus GI/GII Not Detected (Not Detect.); Plesiomonas shigelloides Not Detected (Not Detect.); Rotavirus A Not Detected (Not Detect.); Salmonella Not Detected (Not Detect.); Sapovirus Not Detected (Not Detect.); Shigella sp./EIEC Not Detected (Not Detect.); Vibrio Not Detected (Not Detect.); Vibrio Cholerae Not Detected (Not Detect.); Yersinia enterocolitica Not Detected (Not Detect.)
[2022-09-20 06:12] LABS: Fecal Fat Qualitative Normal (Normal)
[2022-09-24 02:59] LABS: Pancreatic Elastase-1 >500 mcg/g
== END 2022-09-17 12:04 | disposition home or self-care (01) ==
LOC: HO.LNP 12:03
PROVIDERS: Visit Provider Nurse Practitioner Family
DX: R19.7 Diarrhea, unspecified (principal); R10.9 Unspecified abdominal pain; K21.9 Gastro-esophageal reflux disease without esophagitis
CPT/HCPCS: 82656; 82705; 87177; 87209; 87338; 87493; 87507

== ENCOUNTER → 2022-10-28 12:52 | Outpatient (BNVA) | payer OTHER, SELFPAY | PROVIDERS: PCP Internal Medicine; Visit Provider Nurse Practitioner Family | DX: K52.9 Noninfective gastroenteritis and colitis, unspecified (principal); K58.0 Irritable bowel syndrome with diarrhea; R10.32 Left lower quadrant pain | CPT/HCPCS: 99212 ==

== ENCOUNTER 2023-02-04 09:10 | Emergency (ER) | payer OTHER, SELFPAY ==
--- NOTE | ~2023-02-04 | XR_ITS ---
EXAMINATION: XR KNEE, RIGHT CLINICAL INFORMATION: Evaluate for fracture COMPARISON: X-rays of the right knee March 2009 TECHNIQUE: Four views of the right knee. FINDINGS: Bones and soft tissues are normal. No fracture or joint effusion. Alignment is anatomic. Joint spaces are well maintained. No abnormal soft tissue calcification. XR/XR knee RT 4V IMPRESSION: Normal right knee.
[2023-02-04 09:45] VITALS: BP 146/102; PULSE 74; RESP 18; TEMP 36.9; O2SAT 98; BMI 26.0
--- NOTE | 2023-02-04 11:39 | ED_ITS ---
HPI - Extremity Injury (Lower) General Chief Complaint: Extremity Injury, Lower Stated Complaint: R knee pain Time Seen by Provider: 02/04/23 11:36 Source: patient Mode of arrival: ambulatory Limitations: no limitations History of Present Illness HPI Narrative: 42 year old male with history of HILLARY and cervical radiculopathy presenting to the ED complaining of atraumatic right knee pain x 2 days, worse with standing/ movement of the knee, better with rest. 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 Able to ambulate without difficulty. Has tried tylenol without relief of pain. Is currently wearing a compression sleeve around the R knee. Denies injury/ fall, hip pain, left knee pain, ankle pain, back pain, fevers, chills, N/V/D. complaint: knee injury (right) Onset (ago): day(s) (2) Relieving factors: immobilization Exacerbating factors: weight bearing and movement Related Data Previous Rx's Medication Instructions Recorded methylcellulose (laxative) 500 mg 500 mg PO BID #180 tabs 09/16/22 tablet (Citrucel) cholecalciferol (vitamin D3) 50 50 mcg PO DAILY #90 caps 09/22/22 mcg (2,000 unit) capsule folic acid 1 mg tablet 1 mg PO DAILY #90 tabs 10/28/22 acetaminophen 500 mg tablet 500 mg PO Q6H PRN fever or pain 02/04/23 (Tylenol Extra Strength) #14 tabs ketorolac 10 mg tablet 10 mg PO TID PRN pain 5 days #15 02/04/23 tabs Allergies Allergy/AdvReac Type Severity Reaction Status Date / Time varenicline [From Chantix] AdvReac Intermediate vivid Verified 02/04/23 09:50 dreams Review of Systems Review of Systems: Constitutional: No Fever, No Chills ENT/Mouth: No Ear Pain Cardiovascular: No Chest Pain, No SOB Respiratory: No Cough, No Sputum Gastrointestinal: No Nausea, No Vomiting, No Diarrhea, No Constipation, No Abdominal pain Musculoskeletal: + knee pain, + joint pain, No Myalgias, No Joint Swelling Skin: No Skin Lesions, No rash Neuro: No Weakness, No Numbness, No Paresthesias Yes all other systems are reviewed and are negative Constitutional: Constitutional: Reports as per [facility] Past Medical History Attestation statement: The following information was validated with the patient. Source: old records reviewed Medical History Bleeding hemorrhoids Chronic diarrhea Encounter for smoking cessation counseling Epidermal inclusion cyst Left lower quadrant pain Sleep apnea Surgical History H/O hemorrhoidectomy (03/19/22) Family History Family History Unknown Diabetes Father Cancer of unknown origin Social History Social History Housing: Apartment Alcohol intake: current Alcohol intake frequency: a few times a week Alcohol type: other Patient Tobacco Use Status: Current everyday Tobacco user Tobacco use type: Cigarette Cigarettes Per Day: 10 e-Cigarette/Vaping Use: Never Used Second Hand Smoke Exposure: No service: No Current occupational status: employed Current occupation: [employer] Current occupational exposures/hazards: No Physical Exam Vital Signs: Vital Signs: Last Vital Signs Temp 97.9 F 02/04/23 11:45 Pulse 66 02/04/23 11:45 Resp 18 02/04/23 11:45 BP 164/98 H 02/04/23 11:45 Pulse Ox 98 02/04/23 11:45 O2 Del Method Room Air 02/04/23 11:45 BMI result Body Mass Index 26.0 vss, midly hypertensive, afebrile Const: General: cooperative, healthy appearing and no acute distress Orientation/consciousness: patient oriented x3 Limitations: no limitations Eyes: General: appearance normal, both eyes and all related structures EOM: EOMs intact bilaterally Neck: Neck: Yes normal visual inspection and Yes no meningeal signs Resp: Effort & Inspection: normal respiratory effort and no respiratory distress Auscultation: clear to auscultation bilaterally Cardio: Rate: regular rate Heart sounds: S1 normal heart sound present and S2 normal heart sound present Skin: Rashes: no rashes Wounds: no wounds Neuro: General: patient oriented x3, tone normal and no meningeal signs Gait exam (Neuro): Normal gait present Extrem: Other: + R knee with mild suprapatella swelling and diffuse ttp, FROM intact, NV intact distally. No crepitus/warmth General: Yes capillary refill normal Course Course Course Narrative: --1207: XR/XR knee RT 4V IMPRESSION: Normal right knee Plan to discharge patient home with toradol prescription with PCP and ortho fol low up. Results discussed with patient including worrisome signs and symptoms and strict return precautions, and when to return to the emergency department. They verbalized understanding and feel safe for discharge at this time. Medications Administered Discontinued Medications Generic Name Dose Route Start Last Admin Trade Name Renny PRN Reason Stop Dose Admin Ketorolac Tromethamine 30 mg 02/04/23 11:39 02/04/23 11:48 Ketorolac Tromethamine 30 Mg/Ml Vial IM 02/04/23 11:40 30 mg ONCE ONE Administration Medical Decision Making Medical Decision Making [facility] Narrative: 42 year old male with history of HILLARY and cervical radiculopathy presenting to the ED complaining of atraumatic right knee pain x 2 days, worse with standing/ movement of the knee, better with rest. No injury or fall. Vital signs stable, midly hypertensive likely secondary to pain. Right knee with diffuse ttp and mild suprapatellar swelling. Concern for meniscal/ ligamental/ tendon injury vs strain. Low clinical suspicion for fracture, dislocation, septic joint/arthritis or DVT Plan: knee xray, pain management, ortho/ PCP follow up Please refer to course for remaining clinical decision making, interpretation of labs/imaging results, and discussions with consultants and/or family members. Differential Diagnosis Differential Diagnoses: The differential diagnosis associated with the presentation includes As above Independent Interpretation I performed an independent interpretation of an: Plain X-Ray Interpretation: Knee xray: without fracture or dislocation, agree with radiologists read. Radiology Impression Discussion of test interpretation with radiology: I have reviewed the radiologist's reading. Radiologist Impression: XR/XR knee RT 4V IMPRESSION: Normal right knee. External Record Review External record reviewed: Inpatient record, Office record, Outpatient record, Prior outpatient labs, Prior outpatient radiology, Primary care record and Outside ED record Tests considered The following testing was considered but not selected: As above Prescription Management I considered prescription management with: Pain Medication Discharge Plan Discharge Clinical Impression: Acute knee pain Patient Disposition: Home, Self-Care Instructions: Knee Pain (ED) Additional Instructions: Your x-ray is unremarkable. Wear compression stockings, ice and elevate Toradol as an anti-inflammatory/pain medication, take with food In addition take Tylenol Follow-up with your doctor and Orthopedics as needed If symptoms persist or worsen return to the ED Prescriptions: New ketorolac 10 mg tablet 10 mg PO TID PRN (Reason: pain) 5 Days Qty: 15 0RF acetaminophen [Tylenol Extra Strength] 500 mg tablet 500 mg PO Q6H PRN (Reason: fever or pain) Qty: 14 0RF No Action cholecalciferol (vitamin D3) 50 mcg (2,000 unit) capsule 50 mcg PO DAILY Qty: 90 3RF Citrucel 500 mg tablet 500 mg PO BID Qty: 180 2RF Rx Instructions: take it with full glass of water folic acid 1 mg tablet 1 mg PO DAILY Qty: 90 3RF Referrals: [facility] [place]Provider Group] - 1 week Savannah Hobbs MD [Primary Care Provider] - Stand Alone Forms: Work/School Release Interventions: ED Discharge Assessment Last Done: 02/04/23 11:51 Discharge Date/Time: 02/04/23 11:52
[2023-02-04 11:45] VITALS: BP 164/98; PULSE 66; RESP 18; TEMP 36.6; O2SAT 98
[2023-02-04] MEDS: Ketorolac Tromethamine 30 MG/ML VIAL IM (11:48)
== END 2023-02-04 11:52 | disposition home or self-care (01) ==
PROVIDERS: Emergency Provider Emergency Medicine; PCP Internal Medicine
DX: M25.561 Pain in right knee (principal); F17.210 Nicotine dependence, cigarettes, uncomplicated
CPT/HCPCS: 73564; 96372; 99283; 99284; J1885

== ENCOUNTER → 2023-02-13 10:14 | Outpatient (BNVA) | payer OTHER, SELFPAY | PROVIDERS: PCP Internal Medicine; Visit Provider Orthopaedic Surgery | DX: M23.91 Unspecified internal derangement of right knee (principal) | CPT/HCPCS: 99212 ==

== ENCOUNTER 2023-03-10 15:12 | Outpatient (AMB) | payer OTHER, SELFPAY ==
[2023-03-10 15:15] VITALS: BP 126/89; PULSE 84; BMI 25.2
--- NOTE | 2023-03-10 15:15 | MHC.OFFVIS ---
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 Patient is doing better now that he is trying to avoid certain foods that cause him have loose stools postprandially. Patient also had low vitamin D levels. He started taking that. Overall feeling better. Continue taking Citrucel. Left lower quadrant pain Patient reports that he no longer has left lower quadrant pain. IBS (irritable bowel syndrome) Low FODMAP diet discussed with patient. List of food recommended as well as list of food to avoid discussed with patient. All blood work discussed with patient. Essentially all labs negative except for the low vitamin-D level and low folate. Patient is taking vitamin-D that was ordered couple weeks ago. I will refill his folate and he can take it daily. I will see patient in 4 months, sooner on as needed basis. Patient is agreeable to this plan and verbalizes understanding of instructions. He was given the opportunity to ask questions and all questions answered. ? Thank you for allowing me to participate in her care Plan Medications Refilled folic acid 1 mg PO DAILY 90 tabs 3RF E53.8 TODAY'S VISIT Patient is here today for follow-up. Since last time I have seen him patient states that he increase in frequency of loose stools. Patient states that even when he drinks water he has loose stools. Patient also reports to have occasional rectal bleed. History of hemorrhoids in the past and history of hemorrhoidectomy in 2019. Patient denies any fever or chills. Denies any recent travels. Reports postprandial abdominal bloating and cramping. Patient denies any family history of inflammatory bowel disease. Patient reports that no matter what he eats he will have signs symptoms. Patient will usually have a normal bowel movement in the morning and then he will have several loose stools. Patient states that he take Citrucel once or twice a day without any results. [facility] Medical History (Updated 03/10/23 @ 15:34 by Emilie Ya [facility]) Bleeding hemorrhoids Chronic diarrhea Encounter for smoking cessation counseling Epidermal inclusion cyst Left lower quadrant pain Surgical History H/O hemorrhoidectomy (03/19/22) Family History Unknown Diabetes Father Cancer of unknown origin Social History Housing: Apartment Alcohol intake: current Alcohol intake frequency: a few times a week Alcohol type: other Patient Tobacco Use Status: Current everyday Tobacco user Tobacco use type: Cigarette Cigarettes Per Day: 10 e-Cigarette/Vaping Use: Never Used Second Hand Smoke Exposure: No service: No Current occupational status: employed Current occupation: [employer] Current occupational exposures/hazards: No Review of Systems Const Denies weight gain and Reports weight loss ENT Reports no additional complaints, Denies dysphagia and Denies odynophagia Card Reports no additional complaints Resp Reports no additional complaints GI Denies abdominal pain, Denies belching, Denies melena, Denies bloating, Reports hematochezia (Occasional), Denies change in bowel habits, Denies dysphagia, Denies excessive flatus, Denies dyspepsia, Denies heartburn, Reports diarrhea, Denies loose stools, Denies nausea, Denies odynophagia and Denies vomiting Reports no additional complaints Musc Reports no additional complaints Neuro Reports no additional complaints Psych Reports no additional complaints Endo Reports no additional complaints Physical Exam Vital Signs: Last Vital Signs Pulse 84 03/10/23 15:15 BP 126/89 03/10/23 15:15 BMI result Body Mass Index 25.2 Const General: healthy appearing, no acute distress and well developed Nutritional Appearance: well nourished Orientation/consciousness: patient oriented x3 HEENT Head: Yes normal to inspection, Yes normocephalic and Yes atraumatic Face and sinus: Yes normal facial exam Mouth: Normal oral and palatal mucosa present Throat: Yes posterior oropharynx normal, Yes tonsils normal and Yes uvula midline Eyes General: appearance normal, both eyes and all related structures Neck Neck: Yes normal visual inspection, Yes full ROM and Yes trachea midline Thyroid: Thyroid normal Resp Effort & Inspection: normal respiratory effort, able to speak in complete sentences, no tracheal deviation and symmetric chest movement Auscultation: clear to auscultation bilaterally Cardio Rate: regular rate Heart sounds: S1 normal heart sound present and S2 normal heart sound present GI Inspection: Yes normal to inspection and No distended Palpation (GI): Soft to palpation, not firm, nontender and No hepatosplenomegaly present Auscultation: normal bowel sounds General: Yes no CVA tenderness Back/Spine/Pelvis Back: no CVA tenderness Skin General skin exam: elasticity normal, turgor normal and dry skin Neuro General: patient oriented x3 Psych Appearance: grossly normal Mental Status: mental status grossly normal Speech and movement: Normal speech and movement present Affect: normal affect Assessment & Plan Assessment & Plan (1) Chronic diarrhea: Code(s): K52.9 - Noninfective gastroenteritis and colitis, unspecified Plan: Patient was encouraged to avoid dietary triggers. Previously GI panel was negative. Will check for pancreatic insufficiency, check lipase (2) Left lower quadrant pain: Code(s): R10.32 - Left lower quadrant pain Plan: Patient reports left lower quadrant pain sometimes the pain is in the left upper quadrant. Will rule out pancreatitis, pancreatic insufficiency. (3) Encounter for diagnostic colonoscopy due to change in bowel habits: Code(s): R19.4 - Change in bowel habit Plan: Patient reports that his diarrhea has gotten worse. Patient denies any family history of inflammatory bowel disease previously inflammatory markers were negative. Patient states that he lost 10 lb in the last couple months. Patient reports that even drinking water he will have diarrhea. Will send patient for diagnostic colonoscopy to see if patient has any inflammatory bowel disease like colitis. Last colonoscopy in July of 2020 showed no inflammatory processes, 1 hyperplastic polyp found in his rectum. Patient denies any issues with anesthesia in the past. No history of sleep apnea. Not on any anticoagulation medication. Patient states that he did well last time he had the procedure. Prep will be sent to pharmacy. Will schedule patient for procedure and follow-up with him afterwards. Patient is aware what is expected before, during and after the procedure. Clear liquid diet and split MiraLax prep discussed with patient. I will see patient after the procedure, sooner on as needed basis. Patient is agreeable to this plan and verbalizes understanding of instructions. He was given the opportunity to ask questions and all questions answered. Thank you for allowing me to participate in his care Orders: Orders Pancreatic Elastase-1 Today R10.9 - Unspecified abdominal pain Lipase Today R10.9 - Unspecified abdominal pain TSH reflex Free T4 Today K52.9 - Noninfective gastroenteritis and colitis, unspecified Vitamin D 25-OH (D2 and D3) Today E55.9 - Vitamin D deficiency, unspecified Medications: New bisacodyl (Dulcolax (bisacodyl)) take 2 tabs at noon the day before your colonoscopy 10 mg (2 x 5 mg) PO ONCE 1 day 2 tabs 0RF Z12.11 - Encounter for screening for malignant neoplasm of colon polyethylene glycol 3350 (Miralax) As directed by gastroenterology department at [facility] 238 grams PO ONCE 238 grams 0RF Z12.11 - Encounter for screening for malignant neoplasm of colon Coding Level of Care Code Est Pt Level 4 (71528) Diagnoses Chronic diarrhea K52.9 Left lower quadrant pain R10.32 Encounter for diagnostic colonoscopy due to change in bowel habits R19.4 Time Spent (min) 35 Comment 20 minutes spent with patient and additional 15 minutes spent reviewing his records
== END 2023-03-10 16:14 | disposition home or self-care (01) ==
PROVIDERS: PCP Internal Medicine; Visit Provider Nurse Practitioner Family
DX: K52.9 Noninfective gastroenteritis and colitis, unspecified (principal); R10.32 Left lower quadrant pain; R19.4 Change in bowel habit
CPT/HCPCS: 99214

== ENCOUNTER 2023-03-10 15:12 | Outpatient (REF) | payer OTHER, SELFPAY ==
[2023-03-10 21:18] LABS: Lipase 18 U/L (8-78)
[2023-03-10 21:36] LABS: TSH reflex Free T4 0.87 uIU/mL (0.32-4.0)
[2023-03-16 15:53] LABS: Vitamin D 25-OH, D2 <4 ng/mL; Vitamin D 25-OH, D3 41 ng/mL; Vitamin D 25-OH, Total 41 ng/mL (30-100)
== END 2023-03-10 15:13 | disposition home or self-care (01) ==
LOC: HO.LAB 15:12
PROVIDERS: PCP Internal Medicine; Visit Provider Nurse Practitioner Family
DX: K52.9 Noninfective gastroenteritis and colitis, unspecified (principal); R10.32 Left lower quadrant pain; E55.9 Vitamin D deficiency, unspecified; R19.4 Change in bowel habit
CPT/HCPCS: 36415; 82306; 83690; 84443; 99212

== ENCOUNTER 2023-03-11 12:50 | Outpatient (REF) | payer OTHER, SELFPAY ==
[2023-03-20 00:34] LABS: Pancreatic Elastase-1 >500 mcg/g
== END 2023-03-11 12:51 | disposition home or self-care (01) ==
LOC: HO.LNP 12:50
PROVIDERS: Visit Provider Nurse Practitioner Family
DX: R10.9 Unspecified abdominal pain (principal)
CPT/HCPCS: 82656

== ENCOUNTER 2023-03-31 13:25 | Outpatient (REF) | payer OTHER, SELFPAY ==
--- NOTE | ~2023-03-31 | MR_ITS ---
EXAMINATION: MR KNEE WITHOUT CONTRAST, RIGHT CLINICAL INFORMATION: Internal derangement of the right knee. COMPARISON: X-ray the right knee 02/04/2023 TECHNIQUE: MRI of the knee without contrast was performed using routine sequences on a high-field scanner. FINDINGS: MENISCI: Medial Meniscus: The posterior horn and posterior body there is oblique increased signal extending from the periphery of the meniscus to the tibial articular surface near the free edge. Additional irregularity of the free edge of the posterior horn. The anterior horn is intact. Findings indicative of meniscal tear. Lateral Meniscus: Intact LIGAMENTS: Cruciate: Intact Collateral: Intact EXTENSOR MECHANISM: Intact ARTICULAR CARTILAGE/BONE: Patellofemoral Compartment: Normal Medial Compartment: Normal Lateral Compartment: Normal JOINT FLUID AND BURSAE: There is a small Guevara's cyst. MR/MR knee RT wo con IMPRESSION: 1. Tear of the medial meniscus. 2. Small Guevara's cyst.
== END 2023-03-31 13:26 | disposition home or self-care (01) ==
LOC: HO.MRI 13:25
PROVIDERS: PCP Internal Medicine; Visit Provider Orthopaedic Surgery
DX: M23.91 Unspecified internal derangement of right knee (principal)
CPT/HCPCS: 73721

== ENCOUNTER 2023-04-25 11:00 | Outpatient (AMB) | payer OTHER, SELFPAY ==
--- NOTE | 2023-04-25 11:16 | MHC.OFFVIS ---
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 He finds some relief from a knee brace, and no relief from Tylenol or Ketorolac.? [facility] Medical History Bleeding hemorrhoids Chronic diarrhea Encounter for smoking cessation counseling Epidermal inclusion cyst Left lower quadrant pain Surgical History H/O hemorrhoidectomy (03/19/22) Family History Unknown Diabetes Father Cancer of unknown origin Social History Housing: Apartment Alcohol intake: current Alcohol intake frequency: a few times a week Alcohol type: other Patient Tobacco Use Status: Current everyday Tobacco user Tobacco use type: Cigarette Cigarettes Per Day: 10 e-Cigarette/Vaping Use: Never Used Second Hand Smoke Exposure: No service: No Current occupational status: employed Current occupation: [employer] Current occupational exposures/hazards: No Review of Systems Const All systems reviewed & are unremarkable except as noted in HPI and below Physical Exam Vital Signs: BMI result Body Mass Index 24.8 Const General: no acute distress, alert and awake Orientation/consciousness: patient oriented x3 HEENT Head: Yes normocephalic and Yes atraumatic Eyes EOM: EOMs intact bilaterally Resp Effort & Inspection: normal respiratory effort and able to speak in complete sentences Cardio Jugular venous distension: no JVD Skin General skin exam: turgor normal Rashes: no rashes Neuro General: patient oriented x3 Extrem Other: Right Knee: + medial Lacy's TTP medial joint line Psych Appearance: grossly normal Affect: normal affect Attitude: cooperative Results Reviewed Results Reviewed: I personally reviewed relevant MR images 1.? Tear of the medial meniscus. 2.? Small Guevara's cyst. I personally reviewed relevant radiographs. Unremarkable right knee Assessment & Plan Assessment & Plan (1) Tear of medial meniscus of right knee: Code(s): S83.241A - Other tear of medial meniscus, current injury, right knee, initial encounter Plan: This is a 42 year old man with a right medial meniscus tear. He continues to have pain and swelling with daily activity, worse with twisting activities or prolonged weight-bearing. 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 I discussed his diagnosis and treatment options. I recommend a right knee meniscectomy. I discussed the risks, benefits, and alternatives including, but not limited to, the risk of pain, infection, stiffness, need for further surgery as well as potential medical complications such as blood clots, pulmonary embolism and cardiac complications. I discussed the recovery timeline and process as well as the importance of PT. Skip is a good candidate for this surgery, and he wishes to proceed with this decision. He will speak with Krysten to schedule this procedure. Plan Scribed for Drew Peña MD by Devin Santiago, medical administrative specialist, on 04/25/23 at 11:30 AM, EST. Coding Level of Care Code Est Pt Level 4 (17003) Diagnoses Tear of medial meniscus of right knee S83.241A
[2023-04-25 11:21] VITALS: BMI 24.8
== END 2023-04-25 12:07 | disposition home or self-care (01) ==
PROVIDERS: PCP Internal Medicine; Visit Provider Orthopaedic Surgery
DX: S83.241A Other tear of medial meniscus, current injury, right knee, initial encounter (principal)
CPT/HCPCS: 99214

== ENCOUNTER → 2023-04-25 11:00 | Outpatient (BNVA) | payer OTHER, SELFPAY | PROVIDERS: PCP Internal Medicine; Visit Provider Orthopaedic Surgery | DX: S83.241A Other tear of medial meniscus, current injury, right knee, initial encounter (principal) | CPT/HCPCS: 99212 ==

== ENCOUNTER 2023-04-29 13:35 | Day surgery (SDC) | payer OTHER, SELFPAY ==
[2023-04-29 14:00] VITALS: BMI 24.7
[2023-04-29 14:03] VITALS: BP 143/84; PULSE 76; RESP 18; TEMP 36.3; O2SAT 100
[2023-04-29] MEDS: Lactated Ringers 1,000 ML 50 ML IVCONT (14:23)
--- NOTE | 2023-04-29 14:28 | PC.NURSE ---
pt reports vaped marijuana all day. 1/2 ppd smoker, reports excercise/sleep induced wheeze audible. by auscultation, left side clear right side i/e wheeze noted. reported to Dr. Lemus who states he will give duoneb himself.
--- NOTE | 2023-04-29 14:30 | HO.ANESPROP2 ---
HPI - Anesthesia Eval Consult details Narrative: 42 M for colonoscopy EtOH use and smoker PMFSH Active Problems Active Problems: All Active Problems (Updated 04/25/23 @ 11:28 by Devin Santiago) Tear of medial meniscus of right knee (Acute) Internal derangement of right knee (Acute) Chronic diarrhea (Acute) Multiple allergies (Acute) Left lower quadrant pain (Acute) Bleeding hemorrhoids (Acute) Encounter for smoking cessation counseling (Acute) Cervical radiculopathy (Acute) Epidermal inclusion cyst (Acute) Past Medical History Medical History Bleeding hemorrhoids Chronic diarrhea Encounter for smoking cessation counseling Epidermal inclusion cyst Left lower quadrant pain Functional capacity: independent ambulation Family History Family History Unknown Diabetes Father Cancer of unknown origin Family history of problems with anesthesia: No Surgical History Surgical History H/O hemorrhoidectomy (03/19/22) History of Problems with Anesthesia: No Social History Social History Housing: Apartment Alcohol intake: current Alcohol intake frequency: a few times a week Alcohol type: other Patient Tobacco Use Status: Current everyday Tobacco user Tobacco use type: Cigarette Cigarettes Per Day: 10 e-Cigarette/Vaping Use: Never Used Second Hand Smoke Exposure: No service: No Current occupational status: employed Current occupation: [employer] Current occupational exposures/hazards: No Meds Allergies Allergy/AdvReac Type Severity Reaction Status Date / Time varenicline [From Chantix] AdvReac Intermediate vivid Verified 03/10/23 15:16 dreams Active Medications: Current Medications Lactated Ringer's (Lr) 1,000 mls @ 50 mls/hr IVCONT .Q20H GEOFFREY Last Admin: 04/29/23 14:23 Dose: 50 mls/hr Exam Exam Date and Time: April 29, 2023 1430 Height,Weight and Vital Signs: Height 5 ft 10 in Weight 78.018 kg Last Vital Signs Temp 97.3 F 04/29/23 14:03 Pulse 76 04/29/23 14:03 Resp 18 04/29/23 14:03 BP 143/84 H 04/29/23 14:03 Pulse Ox 100 04/29/23 14:03 O2 Del Method Room Air 04/29/23 14:03 Airway Mallampati Class: III Neck ROM: Full Loose/Missing/Broken Teeth: Yes Assessment and Plan Assessment Anesthesia Assessment: Anesthesia Plan Discussed and Chart Reviewed Final Anesthetic Review Family History of Problems with Anesthesia: No History of Problems with Anesthesia: No NPO: Yes ASA Class: II Final Preanesthetic Review: Meds/Allgs Chart Reviewed, Consent Obtained/Reviewed and Anes Risks/Benef Reviewed Patient Risk: Intermediate Procedure Risk: Intermediate Anesthetic Plan Anesthetic Plan: MAC: Disposition: Standard PACU
--- NOTE | 2023-04-29 14:30 | MHC.SHP ---
Pre-Procedural Eval Section A Date of Service: 04/29/23 Section B Chief Complaint: change in bowel habit,L lower quadrant pain,coliti Relevant Family History (Specify if Yes): No Relevant Social History: Alcohol Use (smoker as well) Present Medications: see Short Stay Collaborative assessment Medical History: Significant History (Bleeding hemorrhoids Encounter for smoking cessation counseling Epidermal inclusion cyst Left lower quadrant pain Sleep apnea) History of Previous Operations: No relevant previous surgery Allergies: Allergies Allergy/AdvReac Type Severity Reaction Status Date / Time varenicline [From Chantix] AdvReac Intermediate vivid Verified 03/10/23 15:16 dreams Review of Systems Sugical H&P ROS: Negative: Constitution, Cardiovascular, Respiratory, Neurological, Psychiatric, Hem-Onc, Allergic/Immunologic, Gastrointestinal, Genitourinary, Musculoskeletal, Integumentary, Endocrine and Eyes/Ears/Nose/Throat Exam Surgical H&P Exam: Normal: HEENT, Normal: Heart, Normal: Lungs, Normal: Extremities, Normal: Abdomen, Normal: Skin and Normal: Neurological Plan Diagnosis/Plan: Unchanged I have reviewed the history and physical and performed a pertinent physical examination on my patient. No changes have occurred unless specified. Time Spent With Patient Time: Total time managing care of this patient today ____ minutes.
--- NOTE | 2023-04-29 14:31 | P.OP_ITS ---
Operative Note Operative Note Date of Service: 04/29/23 Narrative: Operative Information Procedure Description: Colonoscopy Indication: diarrhea Anesthesia: MAC COLONOSCOPY Instrument: Olympus variable stiffness pediatric scope 190L Colonoscopy Monitoring: Vital signs and clinical assessment, continuous EKG monitoring, Pulse oximetry, Carbon Dioxide monitoring and blood pressure monitoring were done throughout the procedure. Colon withdrawal time was 10 minutes. Procedure: The patient was placed in the left lateral decubitis position and pre-procedure medications were administered. After a digital rectal examination of the ano-rectum, the video colonoscope was inserted into the rectum and advanced through the colon to the cecum/TI. The colonoscope was slowly withdrawn in a retrograde panoramic fashion and the colon mucosa was carefully examined including a retroflexed view of the rectum. Findings and interventions are described below. Procedure Difficulty: Operative Information Procedure Description: Colonoscopy Indication: diarrhea Anesthesia: MAC COLONOSCOPY Instrument: Olympus variable stiffness Adult scope 190L Colonoscopy Monitoring: Vital signs and clinical assessment, continuous EKG monitoring, Pulse oximetry, Carbon Dioxide monitoring and blood pressure monitoring were done throughout the procedure. Colon withdrawal time was 12 minutes. Procedure: The patient was placed in the left lateral decubitis position and pre-procedure medications were administered. After a digital rectal examination of the ano-rectum, the video colonoscope was inserted into the rectum and advanced through the colon to the cecum/TI. The colonoscope was slowly withdrawn in a retrograde panoramic fashion and the colon mucosa was carefully examined including a retroflexed view of the rectum. Findings and interventions are described below. Procedure Difficulty: easy Findings: Terminal Ileum-normal, bx taken Random colon bx taken Cecum:normal Ascending Colon: normal Transverse Colon -normal Descending Colon:normal Sigmoid Colon: normal Rectum: Retroflexion with small internal hemorrhoids, grade I Anorectum - normal Colon preparation: Colliers Bowel Preparation Scale Right colon; 2 Transverse colon: 3 Left colon; 3 (0 = Unprepared colon segment with mucosa not seen due to solid stool that cannot be cleared. 1 = Portion of mucosa of the colon segment seen, but other areas of the colon segment not well seen due to staining, residual stool and/or opaque liquid. 2 = Minor amount of residual staining, small fragments of stool and/or opaque liquid, but mucosa of colon segment seen well. 3 = Entire mucosa of colon segment seen well with no residual staining, small fragments of stool or opaque liquid) Impression and Post Procedure Diagnosis: internal hemorrhoids Plan: High fiber diet leaflet Avoid straining at stool, epsom salts and sitz bath, anusol supps or cream Repeat Colonoscopy in 10 years or earlier if clinically indicated if bx negative and ongoing diarrhea then EGD, stool samples also sent today Above findings were reviewed with the patient and relevant handouts were provided if indicated.
[2023-04-29 15:35] VITALS: BP 114/81; PULSE 78; RESP 15; TEMP 36.1; O2SAT 96
[2023-04-29 15:50] VITALS: BP 127/90; PULSE 83; RESP 14; O2SAT 98
[2023-04-29 16:05] VITALS: BP 135/92; PULSE 63; RESP 16; TEMP 36.5; O2SAT 99
[2023-04-29 16:29] LABS: CDiff Gene PCR POSITIVE (Negative)
[2023-04-29 17:06] LABS: CDIFF Internal ctrl Dots and bkg OK (V); CDiff Toxin Negative (Negative)
[2023-04-29 17:27] LABS: Campylobacter Not Detected (Not Detect.); E. coli EAEC Not Detected (Not Detect.); E. coli EPEC Not Detected (Not Detect.); E. coli ETEC Not Detected (Not Detect.); E. coli STEC Not Detected (Not Detect.); Plesiomonas shigelloides Not Detected (Not Detect.); Salmonella Not Detected (Not Detect.); Vibrio Not Detected (Not Detect.); Vibrio Cholerae Not Detected (Not Detect.); Yersinia enterocolitica Not Detected (Not Detect.)
[2023-04-29 17:28] LABS: Adenovirus F 40/41 Not Detected (Not Detect.); Astrovirus Not Detected (Not Detect.); Cryptosporidium Not Detected (Not Detect.); Cyclospora cayetanensis Not Detected (Not Detect.); Entamoeba histolytica Not Detected (Not Detect.); Giardia lamblia Not Detected (Not Detect.); Norovirus GI/GII Not Detected (Not Detect.); Rotavirus A Not Detected (Not Detect.); Sapovirus Not Detected (Not Detect.); Shigella sp./EIEC Not Detected (Not Detect.)
== END 2023-04-29 16:13 | disposition home or self-care (01) ==
PROVIDERS: PCP Internal Medicine; Visit Provider Internal Medicine Gastroenterology
PROC: 0DJD8ZZ Inspection of Lower Intestinal Tract, Via Natural or Artificial Opening Endoscopic (ICD-10-PCS; CPT 45378; principal; 2023-04-29 16:50)
DX: R19.4 Change in bowel habit (principal); R10.32 Left lower quadrant pain; K52.9 Noninfective gastroenteritis and colitis, unspecified; K64.0 First degree hemorrhoids; G47.33 Obstructive sleep apnea (adult) (pediatric); Z79.899 Other long term (current) drug therapy; E55.9 Vitamin D deficiency, unspecified; Z88.8 Allergy status to other drugs, medicaments and biological substances; F10.90 Alcohol use, unspecified, uncomplicated; F17.210 Nicotine dependence, cigarettes, uncomplicated
CPT/HCPCS: 45380; 87324; 87493; 87507; 88305; J2250

== ENCOUNTER → 2023-04-29 13:35 | Outpatient (BNV) | payer OTHER, SELFPAY | PROVIDERS: PCP Internal Medicine; Visit Provider Internal Medicine Gastroenterology | DX: K52.9 Noninfective gastroenteritis and colitis, unspecified (principal); K64.0 First degree hemorrhoids | CPT/HCPCS: 45380 ==

== ENCOUNTER 2023-05-04 20:13 | Emergency (ER) | payer OTHER, SELFPAY ==
--- NOTE | ~2023-05-04 | XR_ITS ---
EXAMINATION: XR SHOULDER, RIGHT CLINICAL INFORMATION: Shoulder injury COMPARISON: None available. TECHNIQUE: Four views of the right shoulder. FINDINGS: The bones and soft tissues are normal. No fracture. Glenohumeral and acromioclavicular alignment is anatomic with normal joint space. No abnormal soft tissue calcifications. XR/XR shoulder RT min 2V IMPRESSION: Normal right shoulder.
[2023-05-04 20:18] VITALS: BP 117/71; PULSE 106; RESP 16; TEMP 36.7; O2SAT 98; BMI 25.1
--- NOTE | 2023-05-04 21:29 | ED_ITS ---
HPI - Extremity Problem General Chief complaint: Extremity Injury, Upper Stated complaint: R shoulder pain, fell at work months ago Time Seen by Provider: 05/04/23 21:28 Source: patient Mode of arrival: ambulatory Limitations: no limitations History of Present Illness HPI Narrative: Patient fell about 4 months ago landed on the right shoulder complaining of pain since then get worse on lifting his right hand about head has not seen any orthopedic see a no paresthesia no weakness of the muscles Related Data Previous Rx's Medication Instructions Recorded methylcellulose (laxative) 500 mg 500 mg PO BID #180 tabs 09/16/22 tablet (Citrucel) cholecalciferol (vitamin D3) 50 50 mcg PO DAILY #90 caps 09/22/22 mcg (2,000 unit) capsule folic acid 1 mg tablet 1 mg PO DAILY #90 tabs 10/28/22 acetaminophen 500 mg tablet 500 mg PO Q6H PRN fever or pain 02/13/23 (Tylenol Extra Strength) #14 tabs ketorolac 10 mg tablet 10 mg PO TID PRN pain 30 days #90 02/13/23 tabs vancomycin 125 mg capsule 125 mg PO QID 10 days #40 caps 04/30/23 ibuprofen 600 mg tablet 600 mg PO Q6H PRN fever or pain 05/04/23 #30 tabs Allergies Allergy/AdvReac Type Severity Reaction Status Date / Time varenicline [From Chantix] AdvReac Intermediate vivid Verified 03/10/23 15:16 dreams Review of Systems Review of Systems: Yes all other systems are reviewed and are negative PMFSH Past Medical History Medical History Bleeding hemorrhoids Chronic diarrhea Encounter for smoking cessation counseling Epidermal inclusion cyst Left lower quadrant pain Surgical History H/O hemorrhoidectomy (03/19/22) Family History Family History Unknown Diabetes Father Cancer of unknown origin Social History Social History Housing: Apartment Alcohol intake: current Alcohol intake frequency: 3 or more drinks per day Alcohol type: beer Patient Tobacco Use Status: Current everyday Tobacco user Tobacco use type: Cigarette Cigarettes Per Day: 10 Smoked in Last 30 Days: Yes e-Cigarette/Vaping Use: Never Used Second Hand Smoke Exposure: No Use of substances other than those prescribed or required for medical reasons: No Substance Use Type: Marijuana Advance Directives: No Advance Directives Information Provided: No service: No Current occupational status: employed Current occupation: [employer] Current occupational exposures/hazards: No Physical Exam Vital Signs: Vital Signs: Last Vital Signs Temp 98.1 F 05/04/23 20:18 Pulse 106 H 05/04/23 20:18 Resp 16 05/04/23 20:18 BP 117/71 05/04/23 20:18 Pulse Ox 98 05/04/23 20:18 O2 Del Method Room Air 05/04/23 20:18 BMI result Body Mass Index 25.1 Extrem: Shoulder/upper arm images: 1. Diffuse tenderness subacromial area open arc sign positive increased pain on lifting arm above head neurovascular intact Medical Decision Making Medical Decision Making MDM Narrative: Patient x-ray was negative for any acute clinically patient has rotator cuff tendinitis in the right side from chronic injury 4 months ago advised to follow with Orthopedics Radiology Impression Discussion of test interpretation with radiology: I have reviewed the radiologist's reading. Discharge Plan Discharge Clinical Impression: Right rotator cuff tendinitis Patient Disposition: Home, Self-Care Instructions: Rotator Cuff Tendinitis (ED) Additional Instructions: Rest to your right shoulder, do not raise your right arm above head Ibuprofen for pain Follow with orthopedic Prescriptions: New ibuprofen 600 mg tablet 600 mg PO Q6H PRN (Reason: fever or pain) Qty: 30 0RF No Action cholecalciferol (vitamin D3) 50 mcg (2,000 unit) capsule 50 mcg PO DAILY Qty: 90 3RF vancomycin 125 mg capsule 125 mg PO QID 10 Days Qty: 40 0RF Citrucel 500 mg tablet 500 mg PO BID Qty: 180 2RF Rx Instructions: take it with full glass of water folic acid 1 mg tablet 1 mg PO DAILY Qty: 90 3RF acetaminophen [Tylenol Extra Strength] 500 mg tablet 500 mg PO Q6H PRN (Reason: fever or pain) Qty: 14 0RF ketorolac 10 mg tablet 10 mg PO TID PRN (Reason: pain) 30 Days Qty: 90 0RF Referrals: Chris Peña MD [Physician] - 2 weeks Drew Peña MD [Physician] - Interventions: ED Discharge Assessment Last Done: 05/04/23 22:10 Discharge Date/Time: 05/04/23 22:10
== END 2023-05-04 22:10 | disposition home or self-care (01) ==
PROVIDERS: Emergency Provider Internal Medicine; PCP Internal Medicine
DX: M75.31 Calcific tendinitis of right shoulder (principal); M25.511 Pain in right shoulder
CPT/HCPCS: 73030; 99284

== ENCOUNTER 2023-05-12 09:58 | Outpatient (AMB) | payer OTHER, SELFPAY ==
[2023-05-12 10:05] VITALS: BP 159/82; PULSE 73; BMI 25.3
--- NOTE | 2023-05-12 10:05 | MHC.OFFVIS ---
Intake Vital Signs 05/12/23 10:05 Height 5 ft 10 in Weight 176 lb 5.917 oz BMI 25.3 BP 159/82 H Blood Pressure Location Rt brachial Position Sitting Pulse 73 Intake Visit Reasons: s/p colon- Pierre Intake Note: Skip presents in office as a est.patient for a post-op f/u for colonoscopy Patiet underwent colonoscopy on 04.29.23 CC: Patient reports he was given a course of antibiotics for H pylori and he states he was doing good while taking them. Today he states he continues to have diarrhea and rectal bleeding. He reports 6-7 BMs daily. Allergies varenicline [From Chantix] Adverse Reaction (Intermediate, Verified 05/12/23 10:15) vivid dreams HPI s/p colon- Pierre HPI Details LAST VISIT Chronic diarrhea Patient was encouraged to avoid dietary triggers. Previously GI panel was negative. Will check for pancreatic insufficiency, check lipase Left lower quadrant pain Patient reports left lower quadrant pain sometimes the pain is in the left upper quadrant. Will rule out pancreatitis, pancreatic insufficiency. Encounter for diagnostic colonoscopy due to change in bowel habits Patient reports that his diarrhea has gotten worse. Patient denies any family history of inflammatory bowel disease previously inflammatory markers were negative. Patient states that he lost 10 lb in the last couple months. Patient reports that even drinking water he will have diarrhea. Will send patient for diagnostic colonoscopy to see if patient has any inflammatory bowel disease like colitis. Last colonoscopy in July of 2020 showed no inflammatory processes, 1 hyperplastic polyp found in his rectum. Patient denies any issues with anesthesia in the past. No history of sleep apnea. Not on any anticoagulation medication. Patient states that he did well last time he had the procedure. Prep will be sent to pharmacy. Will schedule patient for procedure and follow-up with him afterwards. Patient is aware what is expected before, during and after the procedure. Clear liquid diet and split MiraLax prep discussed with patient. I will see patient after the procedure, sooner on as needed basis. Patient is agreeable to this plan and verbalizes understanding of instructions. He was given the opportunity to ask questions and all questions answered. COLONOSCOPY: Findings: Terminal Ileum-normal, bx taken Random colon bx taken Cecum:normal Ascending Colon: normal Transverse Colon -normal Descending Colon:normal Sigmoid Colon: normal Rectum: Retroflexion with small internal hemorrhoids, grade I Anorectum - normal Colon preparation: [place]re Bowel Preparation Scale Right colon; 2 Transverse colon: 3 Left colon; 3 (0 = Unprepared colon segment with mucosa not seen due to solid stool that cannot be cleared. 1 = Portion of mucosa of the colon segment seen, but other areas of the colon segment not well seen due to staining, residual stool and/or opaque liquid. 2 = Minor amount of residual staining, small fragments of stool and/or opaque liquid, but mucosa of colon segment seen well. 3 = Entire mucosa of colon segment seen well with no residual staining, small fragments of stool or opaque liquid) Impression and Post Procedure Diagnosis: internal hemorrhoids Plan: High fiber diet leaflet Avoid straining at stool, epsom salts and sitz bath, anusol supps or cream Repeat Colonoscopy in 10 years or earlier if clinically indicated if bx negative and ongoing diarrhea then EGD, stool samples also sent today PATHOLOGY RESULTS Diagnosis A. Terminal ileum, biopsies: Ileal mucosa with no diagnostic alteration, no evidence of ileitis. B. Colon, random, biopsies: Colonic mucosa with no diagnostic alteration, no evidence of colitis TODAY'S VISIT Patient is here today for follow-up and to discuss colonoscopy results. Patient denies any ill effects from the prep, anesthesia or procedure itself. Patient reports that he continues to have loose stools. Significantly better after the antibiotics. Patient denies any melena, hematochezia, unintentional weight loss or ribbon like stools. Patient reports to have good appetite. Denies dyspepsia, dysphagia or odynophagia. No evidence of ileitis or colitis found on biopsy. [facility]END[facility] SALE TO [facility] Medical History Chronic diarrhea Left lower quadrant pain Bleeding hemorrhoids Encounter for smoking cessation counseling Epidermal inclusion cyst Surgical History Hx of colonoscopy H/O hemorrhoidectomy (03/19/22) Family History Unknown Diabetes Father Cancer of unknown origin Social History Housing: Apartment Alcohol intake: current Alcohol intake frequency: 3 or more drinks per day Alcohol type: beer Patient Tobacco Use Status: Current everyday Tobacco user Tobacco use type: Cigarette Cigarettes Per Day: 10 e-Cigarette/Vaping Use: Never Used Second Hand Smoke Exposure: No Substance Use Type: Marijuana service: No Current occupational status: employed Current occupation: [employer] Current occupational exposures/hazards: No Review of Systems Const Denies weight gain and Denies weight loss ENT Reports no additional complaints, Denies dysphagia and Denies odynophagia Card Reports no additional complaints Resp Reports no additional complaints GI Denies abdominal pain, Denies belching, Denies melena, Denies bloating, Denies change in bowel habits, Denies dysphagia, Denies excessive flatus, Denies dyspepsia, Denies heartburn, Denies diarrhea, Reports loose stools, Denies nausea, Denies odynophagia and Denies vomiting Reports no additional complaints Musc Reports no additional complaints Neuro Reports no additional complaints Psych Reports no additional complaints Endo Reports no additional complaints Physical Exam Vital Signs: Last Vital Signs Pulse 73 05/12/23 10:05 BP 159/82 H 05/12/23 10:05 BMI result Body Mass Index 25.3 Const General: healthy appearing, no acute distress and well developed Nutritional Appearance: well nourished Orientation/consciousness: patient oriented x3 HEENT Head: Yes normal to inspection, Yes normocephalic and Yes atraumatic Face and sinus: Yes normal facial exam Mouth: Normal oral and palatal mucosa present Throat: Yes posterior oropharynx normal, Yes tonsils normal and Yes uvula midline Eyes General: appearance normal, both eyes and all related structures Neck Neck: Yes normal visual inspection, Yes full ROM and Yes trachea midline Thyroid: Thyroid normal Resp Effort & Inspection: normal respiratory effort, able to speak in complete sentences, no tracheal deviation and symmetric chest movement Auscultation: clear to auscultation bilaterally Cardio Rate: regular rate Heart sounds: S1 normal heart sound present and S2 normal heart sound present GI Inspection: Yes normal to inspection and No distended Palpation (GI): Soft to palpation, not firm, nontender and No hepatosplenomegaly present Auscultation: normal bowel sounds General: Yes no CVA tenderness Back/Spine/Pelvis Back: no CVA tenderness Skin General skin exam: elasticity normal, turgor normal and dry skin Neuro General: patient oriented x3 Psych Appearance: grossly normal Mental Status: mental status grossly normal Speech and movement: Normal speech and movement present Assessment & Plan Assessment & Plan (1) Chronic diarrhea: Code(s): K52.9 - Noninfective gastroenteritis and colitis, unspecified Plan: Patient was diagnosed with C diff most likely colonization. Patient was treated with vancomycin. Will repeat stool sample. No ileitis or colitis found on biopsy. Patient was encouraged to drink plenty fluids. Occasional blood when wiping. Will send patient script for Proctosol (2) Status post colonoscopy: Code(s): Z98.890 - Other specified postprocedural states Plan: Patient denies any ill effects from the prep, anesthesia or procedure itself. No polyps found. No colitis or ileitis. Colonoscopy can be repeated in 10 years, sooner if clinically necessary. I will see patient in 6 months, sooner on as needed basis. Patient is agreeable to this plan and verbalizes understanding of instructions. He was given the opportunity to ask questions and all questions answered. Thank you for allowing me to participate in his care Orders: Orders CDiff Gene PCR Today R19.7 - Diarrhea, unspecified Medications: New hydrocortisone 2.5% (Proctosol HC) 1 appl [place] BID-QID PRN 30 grams 2RF hemorrhoids K64.9 - Unspecified hemorrhoids methylcellulose (laxative) (Citrucel) take it with full glass of water 500 mg PO DAILY 90 tabs 2RF K59.00 - Constipation, unspecified Coding Level of Care Code Est Pt Level 3 (77139) Diagnoses Chronic diarrhea K52.9 Status post colonoscopy Z98.890 Time Spent (min) 30 Comment 20 minutes spent with patient and additional 10 minutes spent reviewing his records
== END 2023-05-12 10:50 | disposition home or self-care (01) ==
PROVIDERS: PCP Internal Medicine; Visit Provider Nurse Practitioner Family
DX: K52.9 Noninfective gastroenteritis and colitis, unspecified (principal); Z98.890 Other specified postprocedural states
CPT/HCPCS: 99213

== ENCOUNTER → 2023-05-12 09:58 | Outpatient (BNVA) | payer OTHER, SELFPAY | PROVIDERS: PCP Internal Medicine; Visit Provider Nurse Practitioner Family | DX: K52.9 Noninfective gastroenteritis and colitis, unspecified (principal); Z98.890 Other specified postprocedural states | CPT/HCPCS: 99212 ==

== ENCOUNTER 2023-05-19 13:36 | Outpatient (AMB) | payer OTHER, SELFPAY ==
--- NOTE | 2023-05-19 13:39 | MHC.OFFVIS ---
Intake Vital Signs 05/19/23 13:41 Height 5 ft 10 in Weight 176 lb BMI 25.3 Intake Visit Reasons: Newprob-Right rotator cuff tendinitis Intake Note: The patient agreed to use of a medical lab specialist during this encounter. Scribed for Dr. Drew Peña by Pamella Wood, medical lab specialist, on 05/19/2023 at 1:52 Pm EST. Valdivia is a 42 year old left hand dominant male who presents today for a follow up of his right shoulder. he was last seen with Antonina for this shoulder in 2020. Recently he was seen at [facility] on 05/05/23 due to his pain. He reports that he has intermittent pain, pain is worse after sleeping on it at night. He was given ibuprofen at the ED which is helping but this tends to upset his stomach. Occassional numbness and tingling that travels from the posterior aspect of the shoulder to the finger tips Allergies varenicline [From Chantix] Adverse Reaction (Intermediate, Verified 05/12/23 10:15) vivid dreams HPI Newprob-Right rotator cuff tendinitis HPI Details Skip Sage is a 42 year old left hand dominant male who presents today for a follow up of his right shoulder. States he is experiencing pain and tried massages and at home stretches/yoga but stopped. Denies doing physical therapy. [facility] Medical History Third degree malagon of multiple sites Periscapular pain Right upper quadrant pain Chronic diarrhea Left lower quadrant pain Bleeding hemorrhoids Encounter for smoking cessation counseling Epidermal inclusion cyst Surgical History Hx of colonoscopy H/O hemorrhoidectomy (03/19/22) Family History Unknown Diabetes Father Cancer of unknown origin Social History Housing: Apartment Alcohol intake: current Alcohol intake frequency: 3 or more drinks per day Alcohol type: beer Patient Tobacco Use Status: Current everyday Tobacco user Tobacco use type: Cigar Cigarettes Per Day: 10 e-Cigarette/Vaping Use: Never Used Second Hand Smoke Exposure: No Use of substances other than those prescribed or required for medical reasons: Yes Substance Use Type: Marijuana Are you DNR?: No Advance Directives: No Advance Directives Information Provided: Yes service: No Current occupational status: employed Current occupation: [employer] Current occupational exposures/hazards: No Physical Exam Vital Signs: BMI result Body Mass Index 25.3 Extrem Other: periscpular focal tendernesss. No shoulder pain. nl shoulder exam Assessment & Plan Assessment & Plan (1) Periscapular pain: Code(s): M89.8X1 - Other specified disorders of bone, shoulder Plan: Periscapular pain. Reviewed my findings. Demonstrated exercises. No acute intervention warranted. Will contact me if he wants to pursue formal PT Coding Level of Care Code Est Pt Level 3 (83690) Diagnoses Periscapular pain M89.8X1
[2023-05-19 13:41] VITALS: BMI 25.3
== END 2023-05-19 13:59 | disposition home or self-care (01) ==
PROVIDERS: PCP Internal Medicine; Visit Provider Orthopaedic Surgery
DX: M89.8X1 Other specified disorders of bone, shoulder (principal)
CPT/HCPCS: 99213

== ENCOUNTER → 2023-05-19 13:36 | Outpatient (BNVA) | payer OTHER, SELFPAY | PROVIDERS: PCP Internal Medicine; Visit Provider Orthopaedic Surgery | DX: M89.8X1 Other specified disorders of bone, shoulder (principal) | CPT/HCPCS: 99212 ==

== ENCOUNTER 2023-05-19 14:43 | Outpatient (REF) | payer OTHER, SELFPAY ==
[2023-05-19 19:16] LABS: CDiff Gene PCR NEGATIVE (Negative)
== END 2023-05-19 14:44 | disposition home or self-care (01) ==
LOC: HO.LNP 14:43
PROVIDERS: Visit Provider Nurse Practitioner Family
DX: R19.7 Diarrhea, unspecified (principal)
CPT/HCPCS: 87493

== ENCOUNTER 2023-05-21 08:22 | Day surgery (SDC) | payer OTHER, SELFPAY ==
[2023-05-19 06:50] VITALS: BMI 24.8
--- NOTE | 2023-05-20 08:28 | HO.ANESPROP2 ---
Documented by User: Jessica Valera NP 05/20/23 08:28 HPI - Anesthesia Eval Consult details Narrative: 42yo M for Right Knee Arthroscopy s/p colo 04/2023 with [facility] PMFSH Active Problems Active Problems: All Active Problems (Updated 05/19/23 @ 13:56 by Pamella Wood) Periscapular pain (Acute) Right upper quadrant pain (Acute) Tear of medial meniscus of right knee (Acute) Internal derangement of right knee (Acute) Chronic diarrhea (Acute) Multiple allergies (Acute) Left lower quadrant pain (Acute) Bleeding hemorrhoids (Acute) Encounter for smoking cessation counseling (Acute) Cervical radiculopathy (Acute) Epidermal inclusion cyst (Acute) Past Medical History Medical History Third degree malagon of multiple sites Periscapular pain Right upper quadrant pain Chronic diarrhea Left lower quadrant pain Bleeding hemorrhoids Encounter for smoking cessation counseling Epidermal inclusion cyst Family History Family History Unknown Diabetes Father Cancer of unknown origin Family history of problems with anesthesia: No Surgical History Surgical History Hx of colonoscopy H/O hemorrhoidectomy (03/19/22) History of Problems with Anesthesia: No Social History Social History Housing: Apartment Alcohol intake: current Alcohol intake frequency: 3 or more drinks per day Alcohol type: beer Patient Tobacco Use Status: Current everyday Tobacco user Tobacco use type: Cigar Cigarettes Per Day: 10 e-Cigarette/Vaping Use: Never Used Second Hand Smoke Exposure: No Use of substances other than those prescribed or required for medical reasons: Yes Substance Use Type: Marijuana Are you DNR?: No Advance Directives: No Advance Directives Information Provided: Yes service: No Current occupational status: employed Current occupation: [employer] Current occupational exposures/hazards: No Meds Allergies Allergy/AdvReac Type Severity Reaction Status Date / Time varenicline [From Chantix] AdvReac Intermediate vivid Verified 05/12/23 10:15 dreams Exam Exam Date and Time: May 20, 2023 0828 Height,Weight and Vital Signs: Height 5 ft 10 in Weight 78.471 kg Assessment and Plan Assessment Anesthesia Assessment: Chart Reviewed Final Anesthetic Review Family History of Problems with Anesthesia: No History of Problems with Anesthesia: No Documented by User: Nancie Lopez MD 05/21/23 09:55 PMFSH Past Medical History Medical History Third degree malagon of multiple sites Periscapular pain Right upper quadrant pain Chronic diarrhea Left lower quadrant pain Bleeding hemorrhoids Encounter for smoking cessation counseling Epidermal inclusion cyst Family History Family History Unknown Diabetes Father Cancer of unknown origin Surgical History Surgical History Hx of colonoscopy H/O hemorrhoidectomy (03/19/22) Social History Social History Housing: Apartment Alcohol intake: current Alcohol intake frequency: 3 or more drinks per day Alcohol type: beer Patient Tobacco Use Status: Current everyday Tobacco user Tobacco use type: Cigar Cigarettes Per Day: 10 e-Cigarette/Vaping Use: Never Used Second Hand Smoke Exposure: No Use of substances other than those prescribed or required for medical reasons: Yes Substance Use Type: Marijuana Are you DNR?: No Advance Directives: No Advance Directives Information Provided: Yes service: No Current occupational status: employed Current occupation: [employer] Current occupational exposures/hazards: No Meds Allergies Allergy/AdvReac Type Severity Reaction Status Date / Time varenicline [From Chantix] AdvReac Intermediate vivid Verified 05/12/23 10:15 dreams Exam Airway Mallampati Class: II TM Dist: >3cm Neck ROM: Full Heart: rrr Lungs: cta Assessment and Plan Assessment Anesthesia Assessment: Anesthesia Plan Discussed and Smoking Cess. Discussed Final Anesthetic Review NPO: Yes ASA Class: III (heavy smoker, marihuana user , vaping , smoking daily including today.) Final Preanesthetic Review: No Changes in Pt Med Stat, Meds/Allgs Chart Reviewed, Consent Obtained/Reviewed and Anes Risks/Benef Reviewed Patient Risk: Intermediate Procedure Risk: Low Anesthetic Plan Anesthetic Plan: GA Disposition: Standard PACU
[2023-05-21 08:46] VITALS: BP 131/81; PULSE 74; RESP 16; TEMP 36.2; O2SAT 97
[2023-05-21] MEDS: Lactated Ringers 1,000 ML 100 ML IVCONT (09:04)
[2023-05-21] MEDS: Albuterol/Iprat 2.5/0.5MG 3 ML AMPUL.NEB INHALE (09:09)
[2023-05-21 09:10] VITALS: PULSE 58; RESP 16; O2SAT 98
--- NOTE | 2023-05-21 09:24 | MHC.SHP ---
Pre-Procedural Eval Section A Date of Service: 05/21/23 The patient is an INPATIENT: No Changes since office visit: No Cold of Flu in the past 2 weeks, No New Medical Problems, No Changes in Medication and No Patient answered all questions The History & Physical has been completed within 30 days and I have reviewed it.: Yes Section B Chief Complaint: Other tear of medial meniscus, current injury, rig Allergies: Allergies Allergy/AdvReac Type Severity Reaction Status Date / Time varenicline [From Chantix] AdvReac Intermediate vivid Verified 05/12/23 10:15 dreams Plan I have reviewed the history and physical and performed a pertinent physical examination on my patient. No changes have occurred unless specified. Time Spent With Patient Time: Total time managing care of this patient today ____ minutes.
--- NOTE | 2023-05-21 10:43 | PM.OP ---
Brief Operative Note Date of Service: 05/21/23 Pre-op diagnosis: Right medial meniscus tear Post-op diagnosis: other (1) same 2) medial plica) Procedure: partial medial meniscectomy and medial plica resection Surgeon: Drew Peña MD Anesthesia: GETA and local Was an Special Weapons And Tactics Officer used for this Procedure?: No Estimated blood loss (mL): 0 Tourniquet time (min): 12 IV fluids (mL): 500 Pathology: none sent Condition: stable Disposition: PACU
[2023-05-21 10:44] VITALS: BP 136/84; PULSE 60; RESP 22; TEMP 36.4; O2SAT 99
[2023-05-21 10:49] VITALS: BP 146/80; PULSE 59; RESP 20; O2SAT 99
[2023-05-21 10:54] VITALS: BP 127/83; PULSE 59; RESP 20; O2SAT 97
[2023-05-21] MEDS: oxyCODONE HCl Immed Release 5 MG TABLET PO (10:55)
[2023-05-21 11:09] VITALS: BP 136/82; PULSE 54; RESP 20; TEMP 36.4; O2SAT 98
--- NOTE | 2023-05-26 09:58 | P.OP_ITS ---
Operative Note Operative Note Date of Service: 05/21/23 Narrative: Date of Service: 05/21/23 Pre-op diagnosis: Right medial meniscus tear Post-op diagnosis: other (1) same 2) medial plica) Procedure: partial medial meniscectomy and medial plica resection Surgeon: Drew Peña MD Anesthesia: GETA and local Was an Automobile Service Station Mechanic used for this Procedure?: No Estimated blood loss (mL): 0 Tourniquet time (min): 12 IV fluids (mL): 500 Pathology: none sent Condition: stable Disposition: PACU Procedure in detail: Patient was brought to the operating room placed supine on the arthroscopic table and prepped and draped in standard sterile fashion. A time-out was called to identify proper site proper procedure proper surgeon and IV antibiotics per weight were administered. I began by exsanguinating the limb and insufflating tourniquet to 300 mm Hg. Then made a standard anterolateral stab incision. knee was insufflated with water and 30 degree arthroscope was placed. There was grade 1 fibrillations of the patella but overall the suprapatellar pouch and the gutters were clean. I descended into the medial compartment where I made my medial portal under direct visualization. There was a medial plica noted as I descended into the medial comaprtment. There was obvious of complex tear of the body and posterior horn of the medial meniscus. The root was intact and there were no articular cartilage changes throughout the medial compartment. I used a combination of biter shaver and cautery to remove unstable portions of the meniscus. Approximately 40% meniscal volume was removed. The medial plica was debrided with a shaver. Once I was satisfied with the debridement, the ACL was examined and found to be intact and the lateral compartment also was without the need for intervention. I then removed all instrumentation and closed the portals with skin glue. 25 mL of 2% Marcaine with epinephrine was injected into the joint and the surrounding soft tissues. Patient was then placed in sterile dressing extubated brought recovery room stable condition. There were no known complications.
== END 2023-05-21 12:01 | disposition home or self-care (01) ==
LOC: HO.SSS 08:23
PROVIDERS: PCP Internal Medicine; Visit Provider Orthopaedic Surgery
PROC: (CPT 29870; principal; 2023-05-21 10:40)
DX: S83.241A Other tear of medial meniscus, current injury, right knee, initial encounter (principal); X50.1XXA Overexertion from prolonged static or awkward postures, initial encounter; M71.21 Synovial cyst of popliteal space [Baker], right knee; M25.561 Pain in right knee; F17.210 Nicotine dependence, cigarettes, uncomplicated; Y93.G3 Activity, cooking and baking; Y92.511 Restaurant or cafe as the place of occurrence of the external cause; Y99.0 Civilian activity done for income or pay; Z79.899 Other long term (current) drug therapy
CPT/HCPCS: 29881; 94640; J0131; J0171; J0690; J1100; J1885; J2405; J2795; J3010

== ENCOUNTER → 2023-05-21 08:22 | Outpatient (BNV) | payer OTHER, SELFPAY | PROVIDERS: PCP Internal Medicine; Visit Provider Orthopaedic Surgery | DX: S83.241A Other tear of medial meniscus, current injury, right knee, initial encounter (principal) | CPT/HCPCS: 29881 ==

== ENCOUNTER 2023-05-27 12:29 | Outpatient (AMB) | payer OTHER, SELFPAY ==
--- NOTE | 2023-05-27 12:37 | MHC.OFFVIS ---
Intake Vital Signs 05/27/23 12:39 Height 5 ft 10 in Intake Visit Reasons: PO Rt Knee Arthroscopy 05/21/23 NE Intake Note: Skip 42 yr old male presents today for his P/O visit for his Right knee Arthroscopy from 05/21/23. States he is having pain at the moment. 8/10. States he is not able to bend and flex knee with out increase of pain. Patient came in limping and using a walking stick. Allergies varenicline [From Chantix] Adverse Reaction (Intermediate, Verified 05/27/23 12:41) vivid dreams HPI PO Rt Knee Arthroscopy 05/21/23 NE HPI Details 42-year-old male who presents in the office today 6 days status post right knee partial medial meniscectomy and medial plica resection, which was performed on 05/21/[address] Peña. The patient reports having pain while in the office today. He claims his pain is an 8/10. He states he is unable to bend or flex the knee without increasing pain. He presented to the office today limping and using a walking stick. [facility] Medical History Third degree malagon of multiple sites Periscapular pain Right upper quadrant pain Chronic diarrhea Left lower quadrant pain Bleeding hemorrhoids Encounter for smoking cessation counseling Epidermal inclusion cyst Surgical History Hx of colonoscopy H/O hemorrhoidectomy (03/19/22) Family History Unknown Diabetes Father Cancer of unknown origin Social History Housing: Apartment Alcohol intake: current Alcohol intake frequency: 3 or more drinks per day Alcohol type: beer Patient Tobacco Use Status: Current everyday Tobacco user Tobacco use type: Cigar Cigarettes Per Day: 10 e-Cigarette/Vaping Use: Never Used Second Hand Smoke Exposure: No Substance Use Type: Marijuana service: No Current occupational status: employed Current occupation: [employer] Current occupational exposures/hazards: No Review of Systems Const All systems reviewed & are unremarkable except as noted in HPI and below Physical Exam Const General: cooperative, healthy appearing and no acute distress Resp Effort & Inspection: normal respiratory effort and able to speak in complete sentences Cardio Rate: regular rate Peripheral pulses: Peripheral pulses 2+ throughout GI Palpation (GI): Soft to palpation Skin Lesions: no lesions Rashes: no rashes Extrem Other: Right knee: Incision site is clean, dry, and intact. Moderate effusion. ROM is 0-90 degrees. NVI. Assessment & Plan Assessment & Plan (1) S/P right knee arthroscopy: Comment: right knee partial medial meniscectomy and medial plica resection 05/21/2023 Dr. Drew Peña. Code(s): Z98.890 - Other specified postprocedural states Plan Mr. Sage is a 42-year-old male who presents in the office today 6 days status post right knee partial medial meniscectomy and medial plica resection, which was performed on 05/21/[address] Peña. The patient reports having pain while in the office today. He claims his pain is an 8/10. He states he is unable to bend or flex the knee without increasing pain. He presented to the office today limping and using a walking stick. The patient will attend physical therapy to work on ROM. Follow up will be in 4 weeks for a ROM check, or sooner if needed. Patient Instructions: Scribed for Antonina Linton PA-C by Shauna Rome general medical practitioner, on 05/27/2023 at 12:32 pm, EST. Coding Level of Care Code Global (75365) Diagnoses S/P right knee arthroscopy Z98.890
== END 2023-05-27 12:49 | disposition home or self-care (01) ==
PROVIDERS: PCP Internal Medicine; Visit Provider Physician Assistant
DX: S83.241A Other tear of medial meniscus, current injury, right knee, initial encounter (principal); Z48.89 Encounter for other specified surgical aftercare
CPT/HCPCS: 99024

== ENCOUNTER → 2023-05-27 12:29 | Outpatient (BNVA) | payer OTHER, SELFPAY | PROVIDERS: PCP Internal Medicine; Visit Provider Physician Assistant ==

== ENCOUNTER 2023-06-02 13:00 | Outpatient (RCR) | payer OTHER, SELFPAY ==
--- NOTE | 2023-05-28 14:22 | MHC.PT.EP ---
[facility] [place] Office [place] Office [place] Office [address] [phone] F: [phone] F: [phone] F: [phone] F: [phone] Physical Therapy Plan of Care Date of Evaluation: 05/28/23 Date of Surgery: 05/21/23 Diagnosis: R KNEE Assessment: Pt IS 42 YO M REFERRED TO PT FROM [facility]THO (MARITZA KIRKPATRICK) S/P R KNEE MEDIAL MENISCECTOMY AND PLICA RESECTION ON 05/21/23 AFTER KNEE PAIN/CLICKING FOR ABOUT 1 YR (NO SPECIFIC INCIDENT OR TRAUMA). 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 PRESENTS TO PT WITH LIMITED END ROM R KNEE AND R LE WEAKNESS WITH SLIGHT LIMP, SWELLING, AND PAIN REPORTED. GOOD PT CANDIDATE TO ADDRESS THESE ISSUES Frequency and Duration: The patient will be seen 2X/WK X 6 WKS Short Term Goals: 1. INCREASED AWARENESS R LE CARE 2. NO LIMP 3. R KNEE ROM 0-130 4. 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 I HEP WITH DC EX PLAN 2. IMPROVED LEFI ( AT SOC) 3. RTW 4. DECREASED R KNEE PAIN AT LEAST 50% WITH ADLS Treatment Plan: Modalities to reduce pain, spasms and effusion. Manual therapy to restore motion and function. Therapeutic exercise to improve strength and flexibility. Neuromuscular re-education for posture and balance. Therapeutic activities to return to functional activities of daily living. Electronically signed by: MALINI MCNAIR PT Please sign and return to therapist. Thank you for your referral.
--- NOTE | 2023-07-02 09:40 | MHC.PT.DC ---
[facility] [place] Office [place] Office [place] Office [address] [phone] F: [phone] F: [phone] F: [phone] F: [phone] Physical Therapy Discharge Report Diagnosis: R KNEE Date of Surgery: 05/21/23 Date of Evaluation: 05/28/23 Date of Discharge: 07/02/23 Treatments to Date: 2 Cancellations to Date: No Shows to Date: Discharge Status: Patient Elected to Stop Discharge Summary: Pt SEEN FOR INIT EVAL AND 1 VISIT. AT THAT VISIT PER BRITNEY BENAVIDEZ PT,DPT 06/02/23: AROM -2 to 118. Good tolerance for AAROM program, added 4 way SLR (on bed) and bike with good tolerance, may be able to add gentle resistance next session. Pt educated re: STM via use of flexbar. We discussed encouragement for a gentle walking, flat terrain low impact program to tolerance (reports was attempting to walk his dog which resulted in pulling). Pt encouraged to keep icing his knee. Pt presents without use of AD this date. . Pt THEN CANCELLED X 2 THEN NO SHOWED. HAD FU WITH ORTHO ON 06/24/23 REPORTING DOING WELL. WAS TO START BTW ON 07/02/23 Electronically signed by: MALINI MCNAIR PT Please sign and return to therapist. Thank you for your referral.
== END 2023-07-02 09:40 | disposition home or self-care (01) ==
LOC: HO.PTWFD 13:00
PROVIDERS: PCP Internal Medicine; Visit Provider Physician Assistant
DX: S83.241A Other tear of medial meniscus, current injury, right knee, initial encounter (principal)
CPT/HCPCS: 97110; 97116; 97140; 97161; 97535

== ENCOUNTER 2023-06-24 13:50 | Outpatient (AMB) | payer OTHER, SELFPAY ==
--- NOTE | 2023-06-24 14:08 | MHC.OFFVIS ---
Intake Vital Signs 06/24/23 14:08 Height 5 ft 10 in Intake Visit Reasons: PO Rt Knee Arthroscopy 05/21/23 NE Intake Note: Skip is a 42 year old male presents today for his P/O visit for his Right knee Arthroscopy from 05/21/23. States he is doing well and PT is helping him with his stretches. Allergies varenicline [From Chantix] Adverse Reaction (Intermediate, Verified 06/24/23 14:08) vivid dreams HPI PO Rt Knee Arthroscopy 05/21/23 NE HPI Details 42-year-old male who presents in the office today 1 month status post right knee partial medial meniscectomy and medial plica resection, which was performed on 05/21/[address] Peña. The patient reports he is doing well and physical therapy has been helping him. [facility] Medical History Third degree malagon of multiple sites Periscapular pain Right upper quadrant pain Chronic diarrhea Left lower quadrant pain Bleeding hemorrhoids Encounter for smoking cessation counseling Epidermal inclusion cyst Surgical History Hx of colonoscopy H/O hemorrhoidectomy (03/19/22) Family History Unknown Diabetes Father Cancer of unknown origin Social History Housing: Apartment Alcohol intake: current Alcohol intake frequency: 3 or more drinks per day Alcohol type: beer Patient Tobacco Use Status: Current everyday Tobacco user Tobacco use type: Cigar Cigarettes Per Day: 10 e-Cigarette/Vaping Use: Never Used Second Hand Smoke Exposure: No Substance Use Type: Marijuana service: No Current occupational status: employed Current occupation: [employer] Current occupational exposures/hazards: No Review of Systems Const All systems reviewed & are unremarkable except as noted in HPI and below Physical Exam Const General: cooperative, healthy appearing and no acute distress Resp Effort & Inspection: normal respiratory effort and able to speak in complete sentences Cardio Rate: regular rate Peripheral pulses: Peripheral pulses 2+ throughout GI Palpation (GI): Soft to palpation Skin Lesions: no lesions Rashes: no rashes Extrem Other: Right knee: Prior incision site is well approximated and completely healed. No signs of infection. No erythema or joint effusion. Full ROM. Assessment & Plan Assessment & Plan (1) S/P right knee arthroscopy: Comment: right knee partial medial meniscectomy and medial plica resection 05/21/2023 Dr. Drew Peña. Code(s): Z98.890 - Other specified postprocedural states Plan Mr. Sage is a 42-year-old male who presents in the office today 1 month status post right knee partial medial meniscectomy and medial plica resection, which was performed on 05/21/[address] Peña. The patient reports he is doing well and physical therapy has been helping him. I sent a prescription to the pharmacy for Ibuprofen 800 mg PO TID PRN. 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 He anticipates returning to work on 07/02/2023. Follow up will be PRN, or sooner if needed. Medications: New ibuprofen 800 mg PO TID PRN 90 tabs 0RF pain 30 days Patient Instructions: Scribed for Antonina Linton PA-C by Shauna Rome medical care evaluation specialist, on 06/24/2023 at 1:52 pm, EST. Coding Level of Care Code Global (96649) Diagnoses S/P right knee arthroscopy Z98.890
== END 2023-06-24 14:26 | disposition home or self-care (01) ==
PROVIDERS: PCP Internal Medicine; Visit Provider Physician Assistant
DX: Z98.890 Other specified postprocedural states (principal)
CPT/HCPCS: 99024

== ENCOUNTER → 2023-06-24 13:50 | Outpatient (BNVA) | payer OTHER, SELFPAY | PROVIDERS: PCP Internal Medicine; Visit Provider Physician Assistant ==

== ENCOUNTER → 2023-12-22 13:28 | Outpatient (BNVA) | payer OTHER, SELFPAY | PROVIDERS: PCP Internal Medicine; Visit Provider Nurse Practitioner Family | DX: K52.9 Noninfective gastroenteritis and colitis, unspecified (principal); R10.32 Left lower quadrant pain; K58.0 Irritable bowel syndrome with diarrhea | CPT/HCPCS: 99212 ==

== ENCOUNTER 2023-12-22 13:29 | Outpatient (AMB) | payer OTHER, SELFPAY ==
[2023-12-22 13:39] VITALS: BP 139/91; PULSE 87; BMI 25.0
--- NOTE | 2023-12-22 13:39 | A.OFFVIS_ITS ---
Vital Signs 12/22/23 13:39 Height 5 ft 10 in Weight 174 lb 2.643 oz BMI 25.0 BP 139/91 H Blood Pressure Location Lt brachial Position Sitting Pulse 87 Pulse Source Pulse Oximeter Intake Visit Reasons: 6 Month Follow Up Intake Note: Pt presents to the office today for a 6 month follow up for diarrhea. Pt states he is still having issues with diarrhea. Pt states he uses the bathroom about 10-12 times a day and states his stools are always soft. Pt denies any nausea,vomiting, stomach pain. Allergies varenicline [From Chantix] Adverse Reaction (Intermediate, Verified 12/22/23 13:41) vivid dreams HPI HPI 6 Month Follow Up: Details: LAST VISIT Chronic diarrhea Patient was diagnosed with C diff most likely colonization. Patient was treated with vancomycin. Will repeat stool sample. No ileitis or colitis found on biopsy. Patient was encouraged to drink plenty fluids. Occasional blood when wiping. Will send patient script for Proctosol Status post colonoscopy Patient denies any ill effects from the prep, anesthesia or procedure itself. No polyps found. No colitis or ileitis. Colonoscopy can be repeated in 10 years, sooner if clinically necessary. I will see patient in 6 months, sooner on as needed basis. Patient is agreeable to this plan and verbalizes understanding of instructions. He was given the opportunity to ask questions and all questions answered. ? Thank you for allowing me to participate in his care Plan Orders Orders CDiff Gene PCR Today R19.7 Medications New hydrocortisone 2.5% (Proctosol HC) 1 appl OK BID-QID PRN 30 grams 2RF hemorrhoids K64.9 methylcellulose (laxative) (Citrucel) take it with full glass of water 500 mg PO DAILY 90 tabs 2RF K59.00 TODAY'S VISIT Patient is here today for follow-up. Patient reports that he continues to have loose stools. Goes to the bathroom several times a day. Patient states that even he takes fiber he feels like he has to go. Patient has a history of C diff in the past and treated with vanco. Negative CRP. Negative lipase. Patient admits to not always eating food that is healthy, however he did stop eating fast food. 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 Patient at meds to eating late at night different snacks, however he does not go to bed 1:00 am. Patient denies any dyspepsia, dysphagia or odynophagia. Patient denies any abdominal pain or discomfort, occasional abdominal cramping that usually resolves after he has a bowel movement [facility] Medical History Third degree malagon of multiple sites Periscapular pain Right upper quadrant pain Chronic diarrhea Left lower quadrant pain Bleeding hemorrhoids Encounter for smoking cessation counseling Epidermal inclusion cyst Surgical History Hx of colonoscopy H/O hemorrhoidectomy (03/19/22) Family History Unknown Diabetes Father Cancer of unknown origin Social History (Updated 12/22/23 @ 13:42 by Taya Reaves CMA) Housing: Apartment Alcohol intake: current Alcohol intake frequency: 3 or more drinks per day Alcohol type: beer Patient Tobacco Use Status: Current everyday Tobacco user Tobacco use type: Cigarette Cigarettes Per Day: 10 e-Cigarette/Vaping Use: Never Used Second Hand Smoke Exposure: No Substance Use Type: Marijuana service: No Current occupational status: employed Current occupation: [employer] Current occupational exposures/hazards: No Review of Systems Const Denies weight gain and Denies weight loss ENT Reports no additional complaints, Denies dysphagia and Denies odynophagia Card Reports no additional complaints Resp Reports no additional complaints GI Reports abdominal pain (Occasional cramping), Denies belching, Denies melena, Reports bloating, Denies change in bowel habits, Denies dysphagia, Denies excessive flatus, Denies dyspepsia, Denies heartburn, Denies diarrhea, Reports loose stools, Denies nausea, Denies odynophagia and Denies vomiting Reports no additional complaints Musc Reports no additional complaints Neuro Reports no additional complaints Psych Reports no additional complaints Endo Reports no additional complaints Physical Exam Vital Signs: Last Vital Signs Pulse 87 12/22/23 13:39 BP 139/91 H 12/22/23 13:39 BMI result Body Mass Index 25.0 Const General: healthy appearing, no acute distress and well developed Nutritional Appearance: well nourished Orientation/consciousness: patient oriented x3 Resp Effort & Inspection: normal respiratory effort, able to speak in complete sentences, no tracheal deviation and symmetric chest movement Auscultation: clear to auscultation bilaterally Cardio Rate: regular rate GI Inspection: Yes normal to inspection and No distended Palpation (GI): Soft to palpation, not firm, nontender and No hepatosplenomegaly present Auscultation: normal bowel sounds General: Yes no CVA tenderness Back/Spine/Pelvis Back: no CVA tenderness Skin General skin exam: elasticity normal, turgor normal and dry skin Neuro General: patient oriented x3 Psych Appearance: grossly normal Mental Status: mental status grossly normal Speech and movement: Normal speech and movement present Assessment & Plan Assessment & Plan (1) Chronic diarrhea: Code(s): K52.9 - Noninfective gastroenteritis and colitis, unspecified Category: Medical (2) Left lower quadrant pain: Code(s): R10.32 - Left lower quadrant pain Category: Medical (3) IBS (irritable bowel syndrome): Code(s): K58.9 - Irritable bowel syndrome without diarrhea Qualifiers: Irritable bowel syndrome type: with diarrhea Qualified Code(s): K58.0 - Irritable bowel syndrome with diarrhea Plan Increase Citrucel to 2 tablets. Patient will take sucralfate reports occasional epigastric pain specially at night time. Sucralfate will also help him with diarrhea. I will see patient in 2 months to re-evaluate. Patient was encouraged to try low FODMAP diet. Patient does have a list of food recommended as well as list of food to avoid at home. Patient is agreeable to plan of care and verbalizes understanding of instructions. He was given the opportunity to ask questions and all questions answered. Thank you for allowing me to participate in his care Medications: New sucralfate 1 g PO BEDTIME 30 tabs 2RF R19.7 - Diarrhea, unspecified methylcellulose (laxative) (Fiber Therapy (methylcellulose)) 1,000 mg (2 x 500 mg) PO DAILY 180 tabs 2RF Refilled cholecalciferol (vitamin D3) 50 mcg PO DAILY 90 caps 3RF R79.89 - Other specified abnormal findings of blood chemistry
== END 2023-12-22 14:01 | disposition home or self-care (01) ==
PROVIDERS: PCP Internal Medicine; Visit Provider Nurse Practitioner Family
DX: K58.0 Irritable bowel syndrome with diarrhea (principal); R10.32 Left lower quadrant pain
CPT/HCPCS: 99213

== ENCOUNTER 2024-02-16 13:26 | Outpatient (AMB) | payer OTHER, SELFPAY ==
--- NOTE | 2024-02-16 13:29 | MHC.OFFVIS ---
Vital Signs 02/16/24 13:35 Height 5 ft 10 in Weight 175 lb 14.862 oz BMI 25.2 BP 134/82 Blood Pressure Location Rt brachial Position Sitting Pulse 88 Pulse Source Pulse Oximeter Pulse Oximetry (%) 99 Oxygen Delivery Method Room Air Intake Visit Reasons: 2 month follow up IBS diet Intake Note: Skip presents in office today for a scheduled 2 mos FUV. CC; Pt was rx'd fiberlax, vitamin D3, and sucralfate at last visit. Pt reports that his sx have remained unchanged. Pt reports he is still dealing with loose stools and finds that the fiber supplement has not helped at all. Pt has stopped taking the supplement as he found that it actually made his sx worse than it was previously without medication he found. Pt denies any significant changes in presentation. Lead Printer Required: No Allergies varenicline [From Chantix] Adverse Reaction (Intermediate, Verified 02/16/24 16:18) vivid dreams HPI HPI 2 month follow up IBS diet: Details: LAST VISIT Chronic diarrhea Left lower quadrant pain IBS (irritable bowel syndrome) Plan Increase Citrucel to 2 tablets. Patient will take sucralfate reports occasional epigastric pain specially at night time. Sucralfate will also help him with diarrhea. I will see patient in 2 months to re-evaluate. Patient was encouraged to try low FODMAP diet. Patient does have a list of food recommended as well as list of food to avoid at home. Patient is agreeable to plan of care and verbalizes understanding of instructions. He was given the opportunity to ask questions and all questions answered. ? Thank you for allowing me to participate in his care Medications New sucralfate 1 g PO BEDTIME 30 tabs 2RF R19.7 methylcellulose (laxative) (Fiber Therapy (methylcellulose)) 1,000 mg (2 x 500 mg) PO DAILY 180 tabs 2RF Refilled cholecalciferol (vitamin D3) 50 mcg PO DAILY 90 caps 3RF R79.89 TODAY'S VISIT: Patient is here today for follow-up. Patient reports that he has not taken his fiber therapy as he found that it was making him feel worse. Patient will have more frequent loose stools. 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 Patient stopped taking both sucralfate and fiber. Patient denies any melena, hematochezia. Patient had normal colonoscopy in April of 2023. Patient denies any dyspepsia, dysphagia or odynophagia. [facility] Medical History Third degree malagon of multiple sites Periscapular pain Right upper quadrant pain Chronic diarrhea Left lower quadrant pain Bleeding hemorrhoids Encounter for smoking cessation counseling Epidermal inclusion cyst Surgical History Hx of colonoscopy H/O hemorrhoidectomy (03/19/22) Family History Unknown Diabetes Father Cancer of unknown origin Social History Housing: Apartment Alcohol intake: current Alcohol intake frequency: 3 or more drinks per day Alcohol type: beer Patient Tobacco Use Status: Current everyday Tobacco user Tobacco use type: Cigarette Cigarettes Per Day: 10 e-Cigarette/Vaping Use: Never Used Second Hand Smoke Exposure: No Substance Use Type: Marijuana service: No Current occupational status: employed Current occupation: [employer] Current occupational exposures/hazards: No Review of Systems Const Denies weight gain and Denies weight loss ENT Reports no additional complaints, Denies dysphagia and Denies odynophagia Card Reports no additional complaints Resp Reports no additional complaints GI Reports abdominal pain (Occasional cramping), Denies belching, Denies melena, Reports bloating, Denies change in bowel habits, Denies dysphagia, Denies excessive flatus, Denies dyspepsia, Denies heartburn, Denies diarrhea, Reports loose stools, Denies nausea, Denies odynophagia and Denies vomiting Reports no additional complaints Musc Reports no additional complaints Neuro Reports no additional complaints Psych Reports no additional complaints Endo Reports no additional complaints Physical Exam Vital Signs: Last Vital Signs Pulse 88 02/16/24 13:35 BP 134/82 02/16/24 13:35 Pulse Ox 99 02/16/24 13:35 Oxygen Delivery Method Room Air 02/16/24 13:35 BMI result Body Mass Index 25.2 Const General: healthy appearing, no acute distress and well developed Nutritional Appearance: well nourished Orientation/consciousness: patient oriented x3 Resp Effort & Inspection: normal respiratory effort, able to speak in complete sentences, no tracheal deviation and symmetric chest movement Auscultation: clear to auscultation bilaterally Cardio Rate: regular rate GI Inspection: Yes normal to inspection and No distended Palpation (GI): Soft to palpation, not firm, nontender and No hepatosplenomegaly present Auscultation: normal bowel sounds General: Yes no CVA tenderness Back/Spine/Pelvis Back: no CVA tenderness Skin General skin exam: elasticity normal, turgor normal and dry skin Neuro General: patient oriented x3 Psych Appearance: grossly normal Mental Status: mental status grossly normal Speech and movement: Normal speech and movement present Assessment & Plan Assessment & Plan (1) Chronic diarrhea: Code(s): K52.9 - Noninfective gastroenteritis and colitis, unspecified Category: Medical (2) Left lower quadrant pain: Code(s): R10.32 - Left lower quadrant pain Category: Medical (3) IBS (irritable bowel syndrome): Code(s): K58.9 - Irritable bowel syndrome without diarrhea Qualifiers: Irritable bowel syndrome type: with diarrhea Qualified Code(s): K58.0 - Irritable bowel syndrome with diarrhea Plan Patient will increase taking sucralfate to twice a day. Continue trying to avoid dietary triggers. 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 CRP negative in the past unlikely IBD. Most likely IBS with diarrhea. Patient will try to increase fiber in his diet as well. Patient will return in 2 months, sooner on as needed basis. He is agreeable to this plan and verbalizes understanding of instructions. He was given the opportunity to ask questions and all questions answered. Thank you for allowing me to participate in his care Medications: New sucralfate 1 g PO BID 60 tabs 1RF R19.7 - Diarrhea, unspecified Coding Level of Care Code Est Pt Level 3 (74413) Diagnoses Chronic diarrhea K52.9 Left lower quadrant pain R10.32 Irritable bowel syndrome with diarrhea K58.0 Irritable bowel syndrome type: with diarrhea Time Spent (min) 30 Comment 20 minutes spent with patient and additional 10 minutes spent reviewing his records
[2024-02-16 13:35] VITALS: BP 134/82; PULSE 88; O2SAT 99; BMI 25.2
== END 2024-02-16 13:55 | disposition home or self-care (01) ==
PROVIDERS: PCP Internal Medicine; Visit Provider Nurse Practitioner Family
DX: K58.0 Irritable bowel syndrome with diarrhea (principal); R10.32 Left lower quadrant pain
CPT/HCPCS: 99213

== ENCOUNTER → 2024-02-16 13:26 | Outpatient (BNVA) | payer OTHER, SELFPAY | PROVIDERS: PCP Internal Medicine; Visit Provider Nurse Practitioner Family | DX: K52.9 Noninfective gastroenteritis and colitis, unspecified (principal); K58.0 Irritable bowel syndrome with diarrhea; R10.32 Left lower quadrant pain | CPT/HCPCS: 99212 ==

== ENCOUNTER 2024-03-17 11:37 | Emergency (ER) | payer OTHER, SELFPAY ==
--- NOTE | ~2024-03-17 | XR_ITS ---
EXAMINATION: XR HAND, LEFT CLINICAL INFORMATION: Pain COMPARISON: 07/24/2016 TECHNIQUE: PA, lateral, and oblique views of the left hand. FINDINGS: Bones have normal alignment throughout the hand. No acute fracture or subluxation. The joint spaces are well-preserved. No erosions or periostitis. Old injury with mild posttraumatic truncation at the tuft of the distal phalanx of the third digit. No radiopaque foreign body. No focal soft tissue swelling. XR/XR hand LT min 3V IMPRESSION: No acute abnormalities in the left hand or wrist.
[2024-03-17 12:07] VITALS: BP 163/78; PULSE 82; RESP 18; TEMP 36.6; O2SAT 100; BMI 26.6
--- NOTE | 2024-03-17 12:09 | ED.GENADULT ---
HPI - General Adult General Chief complaint: General Medical Stated complaint: hand spasms Related Data Home Medications ?Medication ?Instructions ?Recorded ?Confirmed albuterol sulfate 90 mcg/actuation inhalation 02/16/24 02/16/24 aerosol inhaler (Ventolin HFA) loratadine 10 mg tablet 10 mg PO DAILY 02/16/24 02/16/24 Previous Rx's ?Medication ?Instructions ?Recorded folic acid 1 mg tablet 1 mg PO DAILY #90 tabs 10/28/22 cholecalciferol (vitamin D3) 50 50 mcg PO DAILY #90 caps 12/22/23 mcg (2,000 unit) capsule sucralfate 1 gram tablet 1 g PO BID #60 tabs 03/15/24 Allergies Allergy/AdvReac Type Severity Reaction Status Date / Time varenicline [From Chantix] AdvReac Intermediate vivid Verified 03/17/24 12:11 dreams PMFSH Past Medical History Medical History Third degree malagon of multiple sites Periscapular pain Right upper quadrant pain Chronic diarrhea Left lower quadrant pain Bleeding hemorrhoids Encounter for smoking cessation counseling Epidermal inclusion cyst Surgical History Hx of colonoscopy H/O hemorrhoidectomy (03/19/22) Family History Family History Unknown Diabetes Father Cancer of unknown origin Social History Social History Housing: Apartment Alcohol intake: current Alcohol intake frequency: 3 or more drinks per day Alcohol type: beer Patient Tobacco Use Status: Current everyday Tobacco user Tobacco use type: Cigarette Cigarettes Per Day: 10 e-Cigarette/Vaping Use: Never Used Second Hand Smoke Exposure: No Substance Use Type: Marijuana Advance Directives: No Advance Directives Information Provided: No Do you have a plan to hurt others: No Plan service: No Current occupational status: employed Current occupation: [employer] Current occupational exposures/hazards: No Physical Exam ED Vital Signs: BMI result Body Mass Index 26.6 Course Course Course Narrative: This is an RME: Additional HPI, ROS, PE not included below will be deferred to primary provider. RME assessment and note performed by: Aysha Asher PA-C This is a 15-vtqi-dal-male who presents to the ER with complaints of BL hand pain and spasms. Reporting yesterday he had an episode of BL hand spasms yesterday that lasted for 3 minutes. Reporting pain and soreness since yesterday. No CP/SOB Plan: xrays, basic labs to r/o electrolyte abn Reevaluation(s) Reevaluation #1: Patient left without completing treatment. Medical Decision Making Lab Data 03/17/24 14:28 03/17/24 14:28 Labs: Lab Results 03/17/24 Range/Units 14:28 WBC 6.7 (4.8-10.8) X10*3/uL RBC 3.91 L (4.60-5.80) X10*6/uL Hgb 7.6 L D (14.0-18.0) g/dl Hct 27.1 L D (42.0-52.0) % MCV 69.3 L (80.0-98.0) fL MCH 19.4 L (27.0-33.0) pg MCHC 28.0 L (31.0-36.0) g/dl RDW 18.5 H (11.0-16.0) % Plt Count 254 (160-400) X10*3/uL MPV 8.5 L (9.4-12.4) fL Immature Gran % (Auto) 0.3 (0.0-0.4) % Neut % (Auto) 62.1 (45-73) % Lymph % (Auto) 24.4 (20-40) % [place] % (Auto) 10.6 (2-11) % Eos % (Auto) 1.0 (0-4) % Baso % (Auto) 1.6 (0-2) % Lymph # (Auto) 1.6 (1.2-4.9) X10*3/uL [place] # (Auto) 0.7 (0.1-1.2) X10*3/uL Eos # (Auto) 0.1 (0.0-0.4) X10*3/uL Baso # (Auto) 0.1 (0.0-0.2) X10*3/uL Abs Immat Gran (auto) 0.02 (0.00-0.03) X10*3/uL Absolute Neuts (auto) 4.2 (2.0-8.3) x10*3/uL Absolute Nucleated RBC 0.000 (0.0-0.012) X10*3/uL Nucleated RBC % (auto) 0.0 (0.0-0.2) /100WBC Sodium 138 (135-145) mmol/L Potassium 4.2 (3.3-5.1) mmol/L Chloride 108 (96-108) mmol/L Carbon Dioxide 23 (22-29) mmol/L Anion Gap 11 L (12-20) BUN 10 (9-16) mg/dL Creatinine 0.86 (0.5-1.4) mg/dL Estim Creat Clear Calc 110.7 Estimated GFR > 60 Random Glucose 91 (60-115) mg/dL Calcium 9.1 (8.4-10.2) mg/dL Magnesium 2.2 (1.6-2.6) mg/dL Total Bilirubin 0.3 (0.0-1.0) mg/dL Direct Bilirubin 0.1 (0.0-0.5) mg/dL AST 22 (5-37) U/L ALT 18 (0-40) U/L Alkaline Phosphatase 69 (39-117) U/L Total Creatine Kinase 227 H (38-174) U/L Total Protein 6.6 (6.5-8.0) g/dL Albumin 4.1 (3.5-5.0) g/dL Discharge Plan Discharge Clinical Impression: Bilateral hand pain Patient Disposition: Left W/O Completing Treatment Prescriptions: No Action sucralfate 1 gram tablet 1 g PO BID Qty: 60 1RF folic acid 1 mg tablet 1 mg PO DAILY Qty: 90 3RF loratadine 10 mg tablet 10 mg PO DAILY albuterol sulfate [Ventolin HFA] 90 mcg/actuation HFA aerosol inhaler inhalation cholecalciferol (vitamin D3) 50 mcg (2,000 unit) capsule 50 mcg PO DAILY Qty: 90 3RF Discharge Date/Time: 03/17/24 17:45
[2024-03-17 14:32] LABS: MANUAL DIFF FLAG NO
[2024-03-17 14:34] LABS: Basophils Absolute Auto 0.1 X10*3/uL (0.0-0.2); Basophils Percent Auto 1.6 % (0-2); Eosinophils Absolute Auto 0.1 X10*3/uL (0.0-0.4); Hematocrit 27.1 % (42.0-52.0); Hemoglobin 7.6 g/dl (14.0-18.0); Imm Gran Abs Auto 0.02 X10*3/uL (0.00-0.03); Imm Gran Pct Auto 0.3 % (0.0-0.4); Lymphocytes Absolute Auto 1.6 X10*3/uL (1.2-4.9); Lymphocytes Percent Auto 24.4 % (20-40); Mean Corpuscular Hemoglobin 19.4 pg (27.0-33.0); Mean Corpuscular Volume 69.3 fL (80.0-98.0); Mean Platelet Volume 8.5 fL (9.4-12.4); Monocytes Absolute Auto 0.7 X10*3/uL (0.1-1.2); Monocytes Percent Auto 10.6 % (2-11); Neutrophils Absolute Auto 4.2 x10*3/uL (2.0-8.3); Neutrophils Percent Auto 62.1 % (45-73); Platelet Count 254 X10*3/uL (160-400); Red Blood Count 3.91 X10*6/uL (4.60-5.80); Red Cell Distribution Width 18.5 % (11.0-16.0); White Blood Count 6.7 X10*3/uL (4.8-10.8)
[2024-03-17 14:48] LABS: Alanine Aminotransferase 18 U/L (0-40); Albumin Level 4.1 g/dL (3.5-5.0); Alkaline Phosphatase 69 U/L (39-117); Anion Gap 11 (12-20); Aspartate Amino Transferase 22 U/L (5-37); Bilirubin Direct 0.1 mg/dL (0.0-0.5); Bilirubin Total 0.3 mg/dL (0.0-1.0); Blood Urea Nitrogen 10 mg/dL (9-16); Calcium 9.1 mg/dL (8.4-10.2); Carbon Dioxide 23 mmol/L (22-29); Chloride 108 mmol/L (96-108); Creatinine Clr Calc Pharmacy 110.7; Estimated Glomerular Filt Rate > 60; Glucose Random 91 mg/dL (60-115); Magnesium 2.2 mg/dL (1.6-2.6); Potassium 4.2 mmol/L (3.3-5.1); Sodium 138 mmol/L (135-145); Total Protein 6.6 g/dL (6.5-8.0)
== END 2024-03-17 17:45 | disposition left against medical advice (07) ==
PROVIDERS: Physician Assistant Medical; Emergency Provider Emergency Medicine; PCP Internal Medicine
DX: M79.642 Pain in left hand (principal); M79.641 Pain in right hand; M62.838 Other muscle spasm; Z53.21 Procedure and treatment not carried out due to patient leaving prior to being seen by health care provider
CPT/HCPCS: 36415; 73130; 80048; 80076; 82550; 83735; 85025; 99281; 99283

== ENCOUNTER 2024-03-26 07:38 | Outpatient (AMB) | payer OTHER, SELFPAY ==
[2024-03-26 07:49] VITALS: BP 118/72; PULSE 75; O2SAT 97; BMI 26.7
--- NOTE | 2024-03-26 07:49 | A.OFFPC_ITS ---
Vital Signs 03/26/24 07:49 Height 5 ft 9 in Weight 181 lb BMI 26.7 BP 118/72 Blood Pressure Location Lt brachial Position Sitting Pulse 75 Pulse Source Pulse Oximeter Pulse Oximetry (%) 97 Oxygen Delivery Method Room Air Intake Visit Reasons[place] [facility] [place] Anemia, finger swelling Allergies varenicline [From Chantix] Adverse Reaction (Intermediate, Verified 03/26/24 07:53) vivid dreams Tobacco use date assessed: 02/16/24 Dental Screening Dental Screen Date: 03/26/24 Did you have a dental visit in the last 12 months?: Yes Did you have a dental problem in the last 6 months where you did not have access to dental care?: No Was dental information given to patient?: Patient has dentist HPI HPI Comments History of Present Illness Details 43 y/o male patient who presents to the clinic for HDF. He was evaluated at [facility] [place] on 03/17/24 but left AMA. He has h/o Anemia and Vitamin Deficiency. He is currently taking Vitamin D, B12 and MultiVitamin Gummies. He is also being followed by [facility] [place] for Anemia due to GI Bleed. Pt does admit to Heavy Alcohol drinker since the age of 15. Reports no problems today. Counselled on Alcohol cessation - Pt declined Help. [facility] Medical History Third degree malagon of multiple sites Periscapular pain Right upper quadrant pain Chronic diarrhea Left lower quadrant pain Bleeding hemorrhoids Encounter for smoking cessation counseling Epidermal inclusion cyst Surgical History Hx of colonoscopy H/O hemorrhoidectomy (03/19/22) Family History (Updated 03/26/24 @ 07:53 by Sophy Reed CMA) Unknown Diabetes Father Cancer of unknown origin Social History Housing: Apartment Alcohol intake: current Alcohol intake frequency: 3 or more drinks per day Alcohol type: beer Patient Tobacco Use Status: Current everyday Tobacco user Tobacco use type: Cigarette Cigarettes Per Day: 10 e-Cigarette/Vaping Use: Never Used Second Hand Smoke Exposure: No Substance Use Type: Marijuana service: No Current occupational status: employed Current occupation: [employer] Current occupational exposures/hazards: No Cognitive needs: No Hearing needs: No Vision needs: Yes Questionnaire PHQ-9 Over the last 2 weeks, how often have you been bothered by any of the following problems? 1. Little interest or pleasure in doing things: not at all 2. Feeling down, depressed, or hopeless: not at all 3. Trouble falling or staying asleep, or sleeping too much: not at all 4. Feeling tired or having little energy: not at all 5. Poor appetite or overeating: not at all 6. Feeling bad about yourself - or that you are a failure or have let yourself or your family down: not at all 7. Trouble concentrating on things, such as reading the newspaper or watching television: not at all 8. Moving or speaking so slowly that other people could have noticed. Or the opposite - being so fidgety or restless that you have been moving around a lot more than usual: not at all 9. Thoughts that you would be better off or of hurting yourself in some way: not at all Total score: 0 Depression Screening Interpretation: Negative Depression Screening Done: Yes 65205 - PHQ-9 Billing: Yes Source: Developed by Drs. Flynn Rand, Alia Caldwell, Rob Clark and colleagues, with an educational michael from [facility]. Thrive Questionnaire Date Thrive assessed: 02/16/24 AUDIT C Alcohol Use Questionnaire (AUDIT-C) 1. How often do you have a drink containing alcohol?: 4 or more times a week 2. How many drinks containing alcohol do you have on a typical day when you are drinking?: 3 or 4 3. How often do you have six or more drinks on one occasion?: Daily or almost daily Total Score: 9 Score Reviewed/Action Taken: Yes TOLU-7 AMB Questionnaire TOLU-7 Date TOLU - 7 assessed: 02/16/24 Source: Developed by Drs. Flynn Rand, Alia Caldwell, Rob Clark and colleagues, with an educational michael from [facility]. Review of Systems Const All systems reviewed & are unremarkable except as noted in HPI and below Physical exam (Primary Care) Vital Signs: Last Vital Signs Pulse 75 03/26/24 07:49 BP 118/72 03/26/24 07:49 Pulse Ox 97 03/26/24 07:49 Oxygen Delivery Method Room Air 03/26/24 07:49 BMI result Body Mass Index 26.7 Tobacco/Smoking Status: Tobacco use Status Tobacco use date assessed 02/16/24 03/26/24 07:51 Patient Tobacco Use Status Current everyday Tobacco 03/26/24 07:51 Tobacco use type Cigarette 03/26/24 07:51 e-Cigarette/Vaping Use Never Used 03/26/24 07:51 PHQ-9: PHQ-9 Score PHQ-9: Total score 0 03/26/24 08:33 Depression Screening Interpretation: Negative Thrive Assessment: Date of Thrive Assessment Date Thrive assessed 02/16/24 03/26/24 07:51 Const Orientation/consciousness: patient oriented x3 Resp Effort & Inspection: normal respiratory effort and able to speak in complete sentences Cardio Rate: regular rate Skin General skin exam: no rashes or lesions noted Neuro General: patient oriented x3 Psych Attitude: cooperative Constitutional Common normals: Yes patient oriented x3 Respiratory Common normals: Yes normal respiratory effort Effort & inspection: Yes able to speak in complete sentences Cardio Common normals: Yes regular rate Rate: regular rate Neuro Common normals: Yes patient oriented x3 Psych Common normals: Yes cooperative Skin Common normals: Yes no rashes or lesions noted General skin exam: no rashes or lesions noted Assessment and Plan Assessment & Plan (1) GI bleeding: Code(s): K92.2 - Gastrointestinal hemorrhage, unspecified Qualifiers: GI bleed type/associated pathology: unspecified gastrointestinal h emorrhage type Qualified Code(s): K92.2 - Gastrointestinal hemorrhage, unspecified Plan: F/U with GI. He has an upcoming Appointment for Upper Endo. Counselled Pt on quitting Alcohol, offered help with Detox. Pt declined any help today. He is not ready to quit. (2) Anemia: Code(s): D64.9 - Anemia, unspecified Qualifiers: Anemia type: iron deficiency Iron deficiency anemia type: other iron deficiency Qualified Code(s): D50.8 - Other iron deficiency anemias Plan: Educated on Lifestyle changes and adding Iron rich foods like Liver, black beans and Green Veggies. Continue on Vitamins as scheduled. Coding Level of Care Code Est Pt Level 4 (15389) Diagnoses Gastrointestinal hemorrhage, unspecified gastrointestinal hemorrhage type K92.2 GI bleed type/associated pathology: unspecified gastrointestinal hemorrhage type Other iron deficiency anemia D50.8 Anemia type: iron deficiency Iron deficiency anemia type: other iron deficiency Comment Spent 20 minutes on reviewing Hospital records.
== END 2024-03-26 08:26 | disposition home or self-care (01) ==
PROVIDERS: PCP Internal Medicine; Visit Provider Nurse Practitioner Family
DX: K92.2 Gastrointestinal hemorrhage, unspecified (principal); D50.8 Other iron deficiency anemias
CPT/HCPCS: 99214

== ENCOUNTER 2024-04-16 09:45 | Outpatient (REF) | payer OTHER, SELFPAY ==
[2024-04-16 09:58] LABS: MANUAL DIFF FLAG NO
[2024-04-16 10:40] LABS: Basophils Absolute Auto 0.2 X10*3/uL (0.0-0.2); Basophils Percent Auto 1.3 % (0-2); Eosinophils Absolute Auto 0.1 X10*3/uL (0.0-0.4); Eosinophils Percent Auto 0.8 % (0-4); Hematocrit 27.3 % (42.0-52.0); Hemoglobin 7.6 g/dl (14.0-18.0); Imm Gran Abs Auto 0.05 X10*3/uL (0.00-0.03); Imm Gran Pct Auto 0.4 % (0.0-0.4); Lymphocytes Absolute Auto 1.2 X10*3/uL (1.2-4.9); Mean Corpuscular HGB Conc 27.8 g/dl (31.0-36.0); Mean Corpuscular Hemoglobin 18.8 pg (27.0-33.0); Mean Corpuscular Volume 67.6 fL (80.0-98.0); Monocytes Absolute Auto 0.8 X10*3/uL (0.1-1.2); Monocytes Percent Auto 7.5 % (2-11); Neutrophils Absolute Auto 8.9 x10*3/uL (2.0-8.3); Platelet Count 388 X10*3/uL (160-400); Red Blood Count 4.04 X10*6/uL (4.60-5.80); Red Cell Distribution Width 18.8 % (11.0-16.0); White Blood Count 11.2 X10*3/uL (4.8-10.8)
[2024-04-16 11:21] LABS: Alanine Aminotransferase 21 U/L (0-40); Albumin Level 4.3 g/dL (3.5-5.0); Alkaline Phosphatase 68 U/L (39-117); Anion Gap 12 (12-20); Aspartate Amino Transferase 27 U/L (5-37); Bilirubin Total 0.3 mg/dL (0.0-1.0); Blood Urea Nitrogen 12 mg/dL (9-16); Calcium 9.8 mg/dL (8.4-10.2); Carbon Dioxide 27 mmol/L (22-29); Chloride 106 mmol/L (96-108); Estimated Glomerular Filt Rate > 60; Glucose Random 95 mg/dL (60-115); Potassium 4.2 mmol/L (3.3-5.1); Sodium 141 mmol/L (135-145); Total Protein 7.1 g/dL (6.5-8.0)
[2024-04-16 11:35] LABS: Thyroid Stimulating Hormone 1.61 uIU/mL (0.32-4.0)
[2024-04-16 11:44] LABS: Vitamin B12 306 pg/mL (200-900)
== END 2024-04-16 09:46 | disposition home or self-care (01) ==
LOC: HO.LAB 09:45
PROVIDERS: PCP Internal Medicine; Visit Provider Physician Assistant Medical
DX: G62.9 Polyneuropathy, unspecified (principal); R25.2 Cramp and spasm
CPT/HCPCS: 36415; 80053; 82550; 82607; 82746; 83735; 84443; 85025

== ENCOUNTER 2024-04-19 12:56 | Outpatient (AMB) | payer OTHER, SELFPAY ==
[2024-04-19 12:59] VITALS: BP 107/75; PULSE 66; BMI 26.5
--- NOTE | 2024-04-19 12:59 | A.OFFVIS_ITS ---
Vital Signs 04/19/24 12:59 Height 5 ft 9 in Weight 179 lb 7.3 oz BMI 26.5 BP 107/75 Blood Pressure Location Lt brachial Position Sitting Pulse 66 Intake Visit Reasons: 2 month follow up Intake Note: Skip returns to 2 months in office follow up of IBS. CC: Patient reports that he is scheduled for EGD on May. He states that he continues having same symptoms of diarrhea and that the Carafate did not help much with symptoms. Per patient the only thing that has changed is that he now goes to the bathroom usually from 1AM to 6AM. He also reports bleeding from hemorrhoids. Sock Knitter Required: No Accompanied by: Self / Same As Patient Allergies varenicline [From Chantix] Adverse Reaction (Intermediate, Verified 04/19/24 13:06) vivid dreams HPI HPI 2 month follow up: Details: LAST VISIT Chronic diarrhea Left lower quadrant pain IBS (irritable bowel syndrome) Plan Patient will increase taking sucralfate to twice a day. Continue trying to avoid dietary triggers. 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 CRP negative in the past unlikely IBD. Most likely IBS with diarrhea. Patient will try to increase fiber in his diet as well. Patient will return in 2 months, sooner on as needed basis. He is agreeable to this plan and verbalizes understanding of instructions. He was given the opportunity to ask questions and all questions answered. ? Thank you for allowing me to participate in his care Medications New sucralfate 1 g PO BID 60 tabs 1RF R19.7 * TODAY'S VISIT Patient is here today for follow-up. Patient reports that he continues to have symptoms almost every night. Patient reports that he will have frequent loose stools. Tried fiber in the past and did not help. Now the times when he goes to the bathroom change. Instead of during the day postprandially he has bowel movements throughout the night. 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 Patient usually eats throughout the day. He takes sucralfate at bedtime. Patient denies nausea or vomiting. Occasional epigastric pain postprandially. Patient has been worked up for hand pain, last CBC showed anemia. Back in March patient also was anemic. He continues to have diarrhea and rectal bleeding occasionally. Patient reports that he had hemorrhoidectomy last year. Patient reports that he does not want to go again for this procedure as it was very painful [facility] Medical History Third degree malagon of multiple sites Periscapular pain Right upper quadrant pain Chronic diarrhea Left lower quadrant pain Bleeding hemorrhoids Encounter for smoking cessation counseling Epidermal inclusion cyst Surgical History Hx of colonoscopy H/O hemorrhoidectomy (03/19/22) Family History (Updated 03/26/24 @ 07:53 by Sophy Reed CMA) Unknown Diabetes Father Cancer of unknown origin Social History Housing: Apartment Alcohol intake: current Alcohol intake frequency: 3 or more drinks per day Alcohol type: beer Patient Tobacco Use Status: Current everyday Tobacco user Tobacco use type: Cigarette Cigarettes Per Day: 10 e-Cigarette/Vaping Use: Never Used Second Hand Smoke Exposure: No Substance Use Type: Marijuana service: No Current occupational status: employed Current occupation: [employer] Current occupational exposures/hazards: No Cognitive needs: No Hearing needs: No Vision needs: Yes Review of Systems Const Denies weight gain and Denies weight loss ENT Reports no additional complaints, Denies dysphagia and Denies odynophagia Card Reports no additional complaints Resp Reports no additional complaints GI Denies abdominal pain, Denies belching, Denies melena, Reports bloating, Denies change in bowel habits, Denies dysphagia, Denies excessive flatus, Denies dyspepsia, Denies heartburn, Denies diarrhea, Reports loose stools, Denies nausea, Denies odynophagia and Denies vomiting Reports no additional complaints Musc Reports no additional complaints Neuro Reports no additional complaints Psych Reports no additional complaints Endo Reports no additional complaints Physical Exam Vital Signs: BMI result Body Mass Index 26.5 Const General: healthy appearing, no acute distress and well developed Nutritional Appearance: well nourished Orientation/consciousness: patient oriented x3 Resp Effort & Inspection: normal respiratory effort, able to speak in complete sentences, no tracheal deviation and symmetric chest movement Auscultation: clear to auscultation bilaterally Cardio Rate: regular rate GI Inspection: Yes normal to inspection and No distended Palpation (GI): Soft to palpation, not firm, nontender and No hepatosplenomegaly present Auscultation: normal bowel sounds General: Yes no CVA tenderness Back/Spine/Pelvis Back: no CVA tenderness Skin General skin exam: elasticity normal, turgor normal and dry skin Neuro General: patient oriented x3 Psych Appearance: grossly normal Mental Status: mental status grossly normal Speech and movement: Normal speech and movement present Assessment & Plan Assessment & Plan (1) Chronic diarrhea: Code(s): K52.9 - Noninfective gastroenteritis and colitis, unspecified Category: Medical (2) Left lower quadrant pain: Code(s): R10.32 - Left lower quadrant pain Category: Medical (3) Anemia: Code(s): D64.9 - Anemia, unspecified Qualifiers: Anemia type: unspecified type Qualified Code(s): D64.9 - Anemia, unspecified (4) IBS (irritable bowel syndrome): Code(s): K58.9 - Irritable bowel syndrome without diarrhea Qualifiers: Irritable bowel syndrome type: with diarrhea Qualified Code(s): K58.0 - Irritable bowel syndrome with diarrhea Plan Referral to Hematology workup anemia. Patient does have rectal bleed occasionally, however it should be that low. Patient should take iron sup plements. Might need iron infusion. Patient will take 2 Citrucel after breakfast and sucralfate at lunchtime and at dinner. Patient has upper endoscopy scheduled for May and follow-up appointment with me afterwards. Continue avoiding dietary triggers and late night snacking. Staying upright for minimum 3 hours after meals discussed with patient. Patient will call our office if he will have any other GI concerning symptoms. He is agreeable to this plan and verbalizes understanding of instructions. He was given the opportunity to ask questions and all questions answered. Thank you for allowing me to participate in his care Orders: Referrals Hematology & Oncology Referral D64.9 - Anemia, unspecified Medications: New methylcellulose (laxative) (Citrucel) take it with full glass of water 500 mg PO DAILY 90 tabs 2RF K59.00 - Constipation, unspecified Coding Level of Care Code Est Pt Level 3 (00759) Diagnoses Chronic diarrhea K52.9 Left lower quadrant pain R10.32 Anemia, unspecified type D64.9 Anemia type: unspecified type Irritable bowel syndrome with diarrhea K58.0 Irritable bowel syndrome type: with diarrhea Time Spent (min) 30 Comment 20 minutes spent with patient and additional 10 minutes spent reviewing his records
== END 2024-04-19 13:57 | disposition home or self-care (01) ==
PROVIDERS: PCP Internal Medicine; Visit Provider Nurse Practitioner Family
DX: K58.0 Irritable bowel syndrome with diarrhea (principal); R10.32 Left lower quadrant pain; D64.9 Anemia, unspecified
CPT/HCPCS: 99213

== ENCOUNTER → 2024-04-19 12:56 | Outpatient (BNVA) | payer OTHER, SELFPAY | PROVIDERS: PCP Internal Medicine; Visit Provider Nurse Practitioner Family | DX: K58.0 Irritable bowel syndrome with diarrhea (principal); K52.9 Noninfective gastroenteritis and colitis, unspecified; R10.32 Left lower quadrant pain; D64.9 Anemia, unspecified | CPT/HCPCS: 99212 ==

== ENCOUNTER 2024-04-26 11:04 | Outpatient (AMB) | payer OTHER, SELFPAY ==
--- NOTE | 2024-04-26 11:11 | A.OFFVIS_ITS ---
Vital Signs 04/26/24 11:14 Height 5 ft 9 in Weight 179 lb 7.3 oz BMI 26.5 Intake Visit Reasons: bleeding hemorrhoids Intake Note: This patient presents for bleeding hemorrhoids. Pt c/o; reports has beening having rectal bleeding since his surgery a year ago, reports he is now anemic due to blood loss. Pearl Fisherman Required: No Accompanied by: Self / Same As Patient Allergies varenicline [From Chantix] Adverse Reaction (Intermediate, Verified 04/26/24 11:15) vivid dreams Medication List - Last Reconciled 04/26/24 by Pantera Buck MD albuterol sulfate 90 mcg/actuation (Ventolin HFA) inhalation cholecalciferol (vitamin D3) 50 mcg PO DAILY ferrous sulfate 325 mg PO DAILY loratadine 10 mg PO DAILY lorazepam 1 mg PO DAILY PRN methylcellulose (laxative) (Citrucel) 500 mg PO DAILY sucralfate 1 g PO BID [vitaming b12 1 cap PO] HPI HPI bleeding hemorrhoids: Details: 43-year-old male referred for bleeding hemorrhoids. He says that for the past 8 months, he has been seeing passage of bright blood per rectum after bowel movements. He says that his anus also currently gets sore with BMs He feels that the bleeding has been happening practically every day and has been heavy at times. He had hemorrhoidectomy in 2021. He said he did well after that. 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 He appears to have some form of IBS. [facility] Medical History Third degree malagon of multiple sites Periscapular pain Right upper quadrant pain Chronic diarrhea Left lower quadrant pain Bleeding hemorrhoids Encounter for smoking cessation counseling Epidermal inclusion cyst Surgical History Hx of colonoscopy H/O hemorrhoidectomy (03/19/22) Family History Unknown Diabetes Father Cancer of unknown origin Social History Housing: Apartment Alcohol intake: current Alcohol intake frequency: 3 or more drinks per day Alcohol type: beer Patient Tobacco Use Status: Current everyday Tobacco user Tobacco use type: Cigarette Cigarettes Per Day: 10 e-Cigarette/Vaping Use: Never Used Second Hand Smoke Exposure: No Substance Use Type: Marijuana service: No Current occupational status: employed Current occupation: [employer] Current occupational exposures/hazards: No Cognitive needs: No Hearing needs: No Vision needs: Yes Review of Systems Const Denies chills and Denies fever(s) Card Denies chest pain, Denies dyspnea and Denies dyspnea on exertion Resp Denies cough, Denies dyspnea and Denies dyspnea on exertion GI Reports hematochezia and Denies change in bowel habits Denies hematuria and Denies difficulty urinating Musc Denies back pain and Denies limited range of motion Neuro Denies focal weakness and Denies convulsions Psych Denies depression and Denies mood swings Physical Exam Vital Signs: BMI result Body Mass Index 26.5 Const General: comfortable and no acute distress Orientation/consciousness: patient oriented x3 Neck Neck: Yes no lymphadenopathy Resp Auscultation: clear to auscultation bilaterally Cardio Rhythm: regular rhythm GI Other: Rectal exam shows external hemorrhoids on the right moderate size, refused digital exam and anoscopy Palpation (GI): Soft to palpation, nontender and no guarding Neuro General: patient oriented x3 Assessment & Plan Assessment & Plan (1) Bleeding hemorrhoids: Code(s): K64.9 - Unspecified hemorrhoids Category: Medical Plan: He again has significant bleeding describes passage of bright blood per rectum every day. This has been going on for 8 months. He has had colonoscopies that do not show a more proximal lesion I reviewed with him the technique of exam under anesthesia and hemorrhoidectomy. I explained the risks including but not limited to bleeding and infections as well as postop pain, as well as the benefits and alternatives and he wants to proceed He says he still familiar with the procedure and knows what to expect He has refused digital exam and anoscopy today. Coding Level of Care Code Est Pt Level 3 (40900) Diagnoses Bleeding hemorrhoids K64.9
[2024-04-26 11:14] VITALS: BMI 26.5
== END 2024-04-26 11:21 | disposition home or self-care (01) ==
PROVIDERS: PCP Internal Medicine; Visit Provider Surgery
DX: K64.9 Unspecified hemorrhoids (principal)
CPT/HCPCS: 99214

== ENCOUNTER → 2024-04-26 11:04 | Outpatient (BNVA) | payer OTHER, SELFPAY | PROVIDERS: PCP Internal Medicine; Visit Provider Surgery | DX: K64.9 Unspecified hemorrhoids (principal) | CPT/HCPCS: 99212 ==

== ENCOUNTER → 2024-05-12 08:09 | Outpatient (BNV) | payer OTHER, SELFPAY | PROVIDERS: PCP Internal Medicine; Visit Provider Internal Medicine | DX: D50.9 Iron deficiency anemia, unspecified (principal) | CPT/HCPCS: 99204; G2211 ==

== ENCOUNTER 2024-05-27 07:12 | Day surgery (SDC) | payer OTHER, SELFPAY ==
[2024-05-25 14:21] VITALS: BMI 26.4
--- NOTE | 2024-05-26 10:23 | P.CONAN_ITS ---
Documented by User: Jessica Valera NP 05/26/24 10:26 HPI - Anesthesia Eval Consult details Narrative: 43yo M for Upper Endoscopy Planned for hemorrhoidectomy 06/2024 [facility] Active Problems Active Problems: All Active Problems Iron deficiency anemia (Acute) S/P right knee arthroscopy (Acute) Periscapular pain (Acute) Tear of medial meniscus of right knee (Acute) Internal derangement of right knee (Acute) Multiple allergies (Acute) Cervical radiculopathy (Acute) Right upper quadrant pain (Acute) Chronic diarrhea (Acute) Left lower quadrant pain (Acute) Bleeding hemorrhoids (Acute) Encounter for smoking cessation counseling (Acute) Epidermal inclusion cyst (Acute) Past Medical History Medical History Sleep disturbance, unspecified Third degree malagon of multiple sites Right upper quadrant pain Chronic diarrhea Left lower quadrant pain Bleeding hemorrhoids Encounter for smoking cessation counseling Family History Family History Unknown Diabetes Father Cancer of unknown origin Family history of problems with anesthesia: No Surgical History Surgical History Hx of arthroscopy of knee (~05/2023) Hx of colonoscopy H/O hemorrhoidectomy (03/19/22) History of Problems with Anesthesia: No Social History Social History Housing: Apartment Are you a primary critical care physician to a significant other at home: No Do you presently have visiting nurse or other home services: No Alcohol intake: current Alcohol intake frequency: 3 or more drinks per day Alcohol type: beer Patient Tobacco Use Status: Current everyday Tobacco user Tobacco use type: Cigarette Cigarettes Per Day: 10 e-Cigarette/Vaping Use: Never Used Second Hand Smoke Exposure: No Use of substances other than those prescribed or required for medical reasons: Yes Substance Use Type: Marijuana Have you been hit, kicked, punched, or otherwise hurt by someone within the past year? If so, by whom?: No Spiritual Healthcare Practices: none Evangelical Healthcare Practices: none Cultural Healthcare Practices: none Are you DNR?: No Advance Directives: No Advance Directives Information Provided: Yes (brochure mailed) Advance Directives on File: No Recently lost weight without trying: No Eating poorly because of decreased appetite: No Nutrition Risks: No Nutritional Risk Poor oral hygiene: No (upper & lower partial) service: No Current occupational status: unemployed Current occupation: [employer] Current occupational exposures/hazards: No Cognitive needs: No Hearing needs: No Vision needs: Yes Meds Allergies Allergy/AdvReac Type Severity Reaction Status Date / Time varenicline [From Chantix] AdvReac Intermediate vivid Verified 05/12/24 08:15 dreams Home Medications ?Medication ?Instructions ?Recorded ?Confirmed ?Last Taken ?Type albuterol sulfate 90 mcg/actuation 90 mcg inhalation DAILY 02/16/24 05/25/24 Unknown History aerosol inhaler (Ventolin HFA) loratadine 10 mg tablet 10 mg PO DAILY 02/16/24 05/25/24 Unknown History ferrous sulfate 325 mg (65 mg 325 mg PO DAILY 04/26/24 05/25/24 Unknown History iron) tablet lorazepam 1 mg tablet 1 mg PO DAILY PRN Anxiety 04/26/24 05/25/24 Unknown History cyanocobalamin (vitamin B-12) 500 500 mcg PO DAILY 05/24/24 05/25/24 Unknown History mcg tablet (Vitamin B-12) Exam Height,Weight and Vital Signs: Height 5 ft 9 in Weight 81.193 kg Assessment and Plan Assessment Anesthesia Assessment: Chart Reviewed Final Anesthetic Review Family History of Problems with Anesthesia: No History of Problems with Anesthesia: No Documented by User: Nancie Lopez MD 05/27/24 08:34 PMFSH Past Medical History Medical History Sleep disturbance, unspecified Third degree malagon of multiple sites Right upper quadrant pain Chronic diarrhea Left lower quadrant pain Bleeding hemorrhoids Encounter for smoking cessation counseling Family History Family History Unknown Diabetes Father Cancer of unknown origin Surgical History Surgical History Hx of arthroscopy of knee (~05/2023) Hx of colonoscopy H/O hemorrhoidectomy (03/19/22) Social History Social History Housing: Apartment Are you a primary critical care physician to a significant other at home: No Do you presently have visiting nurse or other home services: No Alcohol intake: current Alcohol intake frequency: 3 or more drinks per day Alcohol type: beer Patient Tobacco Use Status: Current everyday Tobacco user Tobacco use type: Cigarette Cigarettes Per Day: 10 e-Cigarette/Vaping Use: Never Used Second Hand Smoke Exposure: No Use of substances other than those prescribed or required for medical reasons: Yes Substance Use Type: Marijuana Have you been hit, kicked, punched, or otherwise hurt by someone within the past year? If so, by whom?: No Spiritual Healthcare Practices: none Evangelical Healthcare Practices: none Cultural Healthcare Practices: none Are you DNR?: No Advance Directives: No Advance Directives Information Provided: Yes (brochure mailed) Advance Directives on File: No Recently lost weight without trying: No Eating poorly because of decreased appetite: No Nutrition Risks: No Nutritional Risk Poor oral hygiene: No (upper & lower partial) service: No Current occupational status: unemployed Current occupation: [employer] Current occupational exposures/hazards: No Cognitive needs: No Hearing needs: No Vision needs: Yes Meds Allergies Allergy/AdvReac Type Severity Reaction Status Date / Time varenicline [From Chantix] AdvReac Intermediate vivid Verified 05/12/24 08:15 dreams Home Medications ?Medication ?Instructions ?Recorded ?Confirmed ?Last Taken ?Type albuterol sulfate 90 mcg/actuation 90 mcg inhalation DAILY 02/16/24 05/25/24 Unknown History aerosol inhaler (Ventolin HFA) loratadine 10 mg tablet 10 mg PO DAILY 02/16/24 05/25/24 Unknown History ferrous sulfate 325 mg (65 mg 325 mg PO DAILY 04/26/24 05/25/24 Unknown History iron) tablet lorazepam 1 mg tablet 1 mg PO DAILY PRN Anxiety 04/26/24 05/25/24 Unknown History cyanocobalamin (vitamin B-12) 500 500 mcg PO DAILY 05/24/24 05/25/24 Unknown History mcg tablet (Vitamin B-12) Exam Airway Mallampati Class: II TM Dist: >3cm Neck ROM: Full Heart: rrr Lungs: cta Assessment and Plan Assessment Anesthesia Assessment: Anesthesia Plan Discussed Final Anesthetic Review NPO: Yes ASA Class: III (smokes pot, did not take inhaler) Final Preanesthetic Review: No Changes in Pt Med Stat, Meds/Allgs Chart Reviewed, Consent Obtained/Reviewed and Anes Risks/Benef Reviewed Patient Risk: Intermediate Procedure Risk: Low Anesthetic Plan Anesthetic Plan: MAC: Disposition: Standard PACU
[2024-05-27 07:17] VITALS: BP 129/94; PULSE 80; RESP 20; TEMP 36.9; O2SAT 97; BMI 26.8
--- NOTE | 2024-05-27 07:41 | MHC.SHP ---
Pre-Procedural Eval Section A - 24 Hr Update-Section A only Date of Service: 05/27/24 Section B - Complete if H&P > 30 days Chief Complaint: epigastric pain,nausea Relevant Family History (Specify if Yes): No Relevant Social History: None (trying to quit smoking on patch) Present Medications: see Short Stay Collaborative assessment Medical History: Significant History (Sleep disturbance, unspecified Third degree malagon of multiple sites Right upper quadrant pain Chronic diarrhea Left lower quadrant pain Bleeding hemorrhoids Encounter for smoking cessation counseling) History of Previous Operations: Relevant previous surgery/procedure and date(s) ( Hx of arthroscopy of knee (~05/2023) Hx of colonoscopy H/O hemorrhoidectomy (03/19/22)) Allergies: Allergies Allergy/AdvReac Type Severity Reaction Status Date / Time varenicline [From Chantix] AdvReac Intermediate vivid Verified 05/12/24 08:15 dreams Review of Systems Sugical H&P ROS: Negative: Constitution, Cardiovascular, Respiratory, Neurological, Psychiatric, Hem-Onc, Allergic/Immunologic, Gastrointestinal, Genitourinary, Musculoskeletal, Integumentary, Endocrine and Eyes/Ears/Nose/Throat Exam Surgical H&P Exam: Normal: HEENT, Normal: Heart, Normal: Lungs, Normal: Extremities, Normal: Abdomen, Normal: Skin and Normal: Neurological Plan Diagnosis/Plan: Unchanged I have reviewed the history and physical and performed a pertinent physical examination on my patient. No changes have occurred unless specified. Time Spent With Patient Time: Total time managing care of this patient today ____ minutes.
[2024-05-27] MEDS: Lactated Ringers 1,000 ML 100 ML IVCONT (07:43)
--- NOTE | 2024-05-27 08:40 | W.PM.OPN ---
Operative Note Operative Note Date of Service: 05/27/24 Narrative: Procedure Description: EGD Indication: epigastric pain Anesthesia: MAC FLEXIBLE TRANSORAL UPPER GASTROINTESTINAL ENDOSCOPY UPPER ENDOSCOPY Consent: Indications for the procedure and potential complications of bleeding, perforation, reaction to medications and missed diagnosis were discussed with the patient and informed consent was obtained. Instrument: Olympus GIF H 190 J mid size upper endoscope Monitoring: Vital signs and clinical assessment, continuous EKG monitoring, Pulse oximetry, Carbon Dioxide monitoring and blood pressure monitoring were done throughout the procedure. Procedure: The patient was placed in the left lateral decubitis position and pre-procedure medications were administered and a bite block was placed. The endoscope was inserted into the mouth and advanced under direct vision to the third part of duodenum. A careful inspection was made as the upper endoscope was withdrawn including a retroflexed examination of the proximal stomach; Findings and interventions are described below. Findings: Larynx:normal Esophagus: GE junction at 40 cm, diaphragm hiatus at 42 cm, consistent with 2 cm sliding hiatal hernia, possible short segment barretts, bx taken Stomach: mild erythema . Biopsies were obtained. Grade 2 flap valve on retroflexed examination of the cardia. Duodenum: Normal bulb and descending duodenum, bx taken Intervention: Biopsies as noted above, Impression/Findings: gastritis possible barretts PLAN: await bx GERD precautions can try PPI trial if ongoing sx
[2024-05-27 08:49] VITALS: BP 110/76; PULSE 81; RESP 16; TEMP 36.3; O2SAT 98
[2024-05-27 09:04] VITALS: BP 120/85; PULSE 71; RESP 16; TEMP 36.3; O2SAT 99
== END 2024-05-27 09:31 | disposition home or self-care (01) ==
PROVIDERS: PCP Internal Medicine; Visit Provider Internal Medicine Gastroenterology
PROC: 0DJ08ZZ Inspection of Upper Intestinal Tract, Via Natural or Artificial Opening Endoscopic (ICD-10-PCS; CPT 43235; principal; 2024-05-27 09:00)
DX: K29.70 Gastritis, unspecified, without bleeding (principal); K44.9 Diaphragmatic hernia without obstruction or gangrene; K21.9 Gastro-esophageal reflux disease without esophagitis; D50.9 Iron deficiency anemia, unspecified; F17.210 Nicotine dependence, cigarettes, uncomplicated; Z79.899 Other long term (current) drug therapy
CPT/HCPCS: 43239; 88305; 88313; 88342; J1100; J1596; J2704

== ENCOUNTER → 2024-05-27 07:12 | Outpatient (BNV) | payer OTHER, SELFPAY | PROVIDERS: PCP Internal Medicine; Visit Provider Internal Medicine Gastroenterology | DX: K29.70 Gastritis, unspecified, without bleeding (principal); K22.70 Barrett's esophagus without dysplasia | CPT/HCPCS: 43239 ==

== ENCOUNTER 2024-06-04 08:56 | Day surgery (SDC) | payer OTHER, SELFPAY ==
[2024-05-24 08:45] VITALS: BMI 26.4
--- NOTE | 2024-05-24 14:34 | HO.ANESPROP2 ---
HPI - Anesthesia Eval Consult details Narrative: 43yo M for EUA, Hemorrhoidectomy s/p EGD 05/2024 with [facility] PMF[facility] Active Problems Active Problems: All Active Problems Iron deficiency anemia (Acute) S/P right knee arthroscopy (Acute) Periscapular pain (Acute) Tear of medial meniscus of right knee (Acute) Internal derangement of right knee (Acute) Multiple allergies (Acute) Cervical radiculopathy (Acute) Right upper quadrant pain (Acute) Chronic diarrhea (Acute) Left lower quadrant pain (Acute) Bleeding hemorrhoids (Acute) Encounter for smoking cessation counseling (Acute) Epidermal inclusion cyst (Acute) Past Medical History Medical History Sleep disturbance, unspecified Third degree malagon of multiple sites Right upper quadrant pain Chronic diarrhea Left lower quadrant pain Bleeding hemorrhoids Encounter for smoking cessation counseling Family History Family History Unknown Diabetes Father Cancer of unknown origin Family history of problems with anesthesia: No Surgical History Surgical History Hx of arthroscopy of knee (~05/2023) Hx of colonoscopy H/O hemorrhoidectomy (03/19/22) History of Problems with Anesthesia: No Social History Social History Housing: Apartment Are you a primary post acute care nurse practitioner to a significant other at home: No Do you presently have visiting nurse or other home services: No Alcohol intake: current Alcohol intake frequency: 3 or more drinks per day Alcohol type: beer Patient Tobacco Use Status: Current everyday Tobacco user Tobacco use type: Cigarette Cigarettes Per Day: 10 e-Cigarette/Vaping Use: Never Used Second Hand Smoke Exposure: No Use of substances other than those prescribed or required for medical reasons: Yes Substance Use Type: Marijuana Have you been hit, kicked, punched, or otherwise hurt by someone within the past year? If so, by whom?: No Spiritual Healthcare Practices: none Christianity Healthcare Practices: none Cultural Healthcare Practices: none Are you DNR?: No Advance Directives: No Advance Directives Information Provided: Yes (brochure mailed) Advance Directives on File: No Recently lost weight without trying: No Eating poorly because of decreased appetite: No Nutrition Risks: No Nutritional Risk Poor oral hygiene: No (upper & lower partial) service: No Current occupational status: unemployed Current occupation: [employer] Current occupational exposures/hazards: No Cognitive needs: No Hearing needs: No Vision needs: Yes Meds Allergies Allergy/AdvReac Type Severity Reaction Status Date / Time varenicline [From Chantix] AdvReac Intermediate vivid Verified 05/12/24 08:15 dreams Home Medications ?Medication ?Instructions ?Recorded ?Confirmed ?Last Taken ?Type albuterol sulfate 90 mcg/actuation 90 mcg inhalation DAILY 02/16/24 05/25/24 Unknown History aerosol inhaler (Ventolin HFA) loratadine 10 mg tablet 10 mg PO DAILY 02/16/24 05/25/24 Unknown History ferrous sulfate 325 mg (65 mg 325 mg PO DAILY 04/26/24 05/25/24 Unknown History iron) tablet lorazepam 1 mg tablet 1 mg PO DAILY PRN Anxiety 04/26/24 05/25/24 Unknown History cyanocobalamin (vitamin B-12) 500 500 mcg PO DAILY 05/24/24 05/25/24 Unknown History mcg tablet (Vitamin B-12) Exam Height,Weight and Vital Signs: Height 5 ft 9 in Weight 81.193 kg Pertinent Lab Results Pertinent Lab Results: Laboratory Tests 04/16/24 05/12/24 09:56 08:43 WBC 8.2 Hgb 10.3 L D Hct 35.2 L D Plt Count 553 H D Sodium 141 Potassium 4.2 Chloride 106 Carbon Dioxide 27 BUN 12 Creatinine 0.98 Assessment and Plan Assessment Anesthesia Assessment: Chart Reviewed Final Anesthetic Review Family History of Problems with Anesthesia: No History of Problems with Anesthesia: No
[2024-06-04] VITALS (7 sets, daily range): BP systolic 123–174; BP diastolic 85–124; PULSE 76–93; RESP 12–18; TEMP 36.1–36.5; O2SAT 97–99
[2024-06-04] MEDS: Lactated Ringers 1,000 ML 100 ML IVCONT (09:26)
--- NOTE | 2024-06-04 10:26 | MHC.SHP ---
Pre-Procedural Eval Section A - 24 Hr Update-Section A only Date of Service: 06/04/24 Section B - Complete if H&P > 30 days Chief Complaint: Unspecified hemorrhoids Details of Present Illness: Has had bleeding hemorrhoids Relevant Family History (Specify if Yes): No Relevant Social History: None Present Medications: see Short Stay Collaborative assessment Medical History: Significant History (Radiculopathy, smoking) Allergies: Allergies Allergy/AdvReac Type Severity Reaction Status Date / Time varenicline [From Chantix] AdvReac Intermediate vivid Verified 05/12/24 08:15 dreams Review of Systems Sugical H&P ROS: Negative: Constitution, Cardiovascular, Respiratory and Gastrointestinal Exam Surgical H&P Exam: Normal: Heart, Normal: Lungs and Normal: Abdomen Exam Comment: Hemorrhoids on the right Plan I have reviewed the history and physical and performed a pertinent physical examination on my patient. No changes have occurred unless specified. Time Spent With Patient Time: Total time managing care of this patient today ____ minutes.
--- NOTE | 2024-06-04 11:42 | P.OP_ITS ---
Operative Note Operative Note Date of Service: 06/04/24 Narrative: Preop diagnosis bleeding hemorrhoids Postop diagnosis: Internal and external hemorrhoids, with bleeding Procedure: Exam under anesthesia hemorrhoidectomy x2 columns Surgeon: Pantera Buck MD The patient is a 43 year old male with known hemorrhoids, with frequent bleeding. He wanted to proceed with hemorrhoidectomy. He understood the technique of the planned procedure as well as the risks, benefits, and alte rnatives He was brought to the operating room and placed in prone ish-knife position under general anesthesia via endotracheal tube. The buttocks were retracted with wide tape laterally. The perianal area was prepped and draped in the usual sterile fashion. A surgical time-out was done. The patient received Cefotan 2 g IV preoperatively Examination of the anal orifice revealed external hemorrhoids on both the left and right side that seemed to prolapse. I inserted the Tanja Roca retractor. I examined the anal canal circumferentially. There were 2 columns, 1 on each side that appeared to be a mix of internal external and seemed to bleed easily. I applied a Mackenzie grasper on the hemorrhoidal column on the right side 1st. I made a [id number]-[id number] stitch at the pedicle past the dentate line using a chromic 3-0. I made an incision around the hemorrhoidal column to the perianal skin with a blade 15. I excised this hemorrhoidal column above the plane of the sphincters with scissors . Additional hemostatic sutures were placed . I duplicated the same procedure on the hemorrhoidal column on the left. Again this was retracted with a Mackenzie grasper. I made a zshpho-zw-bshes stitch at the pedicle past the dentate line with a chromic 3-0. I made an incision around this hemorrhoidal column to the perianal skin with a blade 15. I excised this hemorrhoidal column above the plane of the sphincters with scissors and closed this incision with a running chromic 3-0 stitch. Additional hemostatic sutures were placed . A full examination of the entire anal canal did not reveal any other lesions, ulcers or any fissure Once hemostasis was confirmed, the procedure was completed. I infiltrated the perianal area with Marcaine 0.5% for postop analgesia. I applied a rolled Gelfoam into the anal canal for additional hemostasis. The patient tolerated the procedure well. There were no immediate complications. Initial and final counts of sponges and instruments were correct. Estimated blood loss was about 50 cc The patient was extubated without difficulty and transferred to the recovery room with stable vital signs.
== END 2024-06-04 13:23 | disposition home or self-care (01) ==
PROVIDERS: PCP Internal Medicine; Visit Provider Surgery
PROC: (CPT 46260; principal; 2024-06-04 11:20)
DX: K64.8 Other hemorrhoids (principal); K64.4 Residual hemorrhoidal skin tags; K62.5 Hemorrhage of anus and rectum; K52.9 Noninfective gastroenteritis and colitis, unspecified; Z79.899 Other long term (current) drug therapy; Z88.8 Allergy status to other drugs, medicaments and biological substances; Z98.890 Other specified postprocedural states; F17.210 Nicotine dependence, cigarettes, uncomplicated
CPT/HCPCS: 46260; 88304; J1100; J2003; J2250; J2405; J2704; J2795; J3010

== ENCOUNTER → 2024-06-04 08:56 | Outpatient (BNV) | payer OTHER, SELFPAY | PROVIDERS: PCP Internal Medicine; Visit Provider Surgery | DX: K64.8 Other hemorrhoids (principal) | CPT/HCPCS: 46260 ==

== ENCOUNTER 2024-06-17 10:11 | Outpatient (AMB) | payer OTHER, SELFPAY ==
--- NOTE | 2024-06-17 10:15 | MHC.OFFVIS ---
Intake Visit Reasons: S/P EUA, hemorrhoidectomy Intake Note: This patient presents for post-op assessment status post Exam under anesthesia hemorrhoidectomy x2 columns. Pt c/o; reports no complaints at this time pertaining to surgery. 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 He had undergone hemorrhoidectomy x2 columns last 06/04/2024. He tolerated procedure well. He says he feels well and says he has had no significant bleeding anymore. [facility] Medical History Sleep disturbance, unspecified Third degree malagon of multiple sites Right upper quadrant pain Chronic diarrhea Left lower quadrant pain Bleeding hemorrhoids Encounter for smoking cessation counseling Surgical History Hx of arthroscopy of knee (~05/2023) Hx of colonoscopy H/O hemorrhoidectomy (03/19/22) Family History Unknown Diabetes Father Cancer of unknown origin Social History Housing: Apartment Are you a primary director career services to a significant other at home: No Do you presently have visiting nurse or other home services: No Alcohol intake: current Alcohol intake frequency: 3 or more drinks per day Alcohol type: beer Patient Tobacco Use Status: Current everyday Tobacco user Tobacco use type: Cigarette Cigarettes Per Day: 10 e-Cigarette/Vaping Use: Never Used Second Hand Smoke Exposure: No Substance Use Type: Marijuana service: No Current occupational status: unemployed Current occupation: [employer] Current occupational exposures/hazards: No Cognitive needs: No Hearing needs: No Vision needs: Yes Review of Systems Const Denies chills and Denies fever(s) Resp Denies cough GI Denies hematochezia Physical Exam Const General: comfortable and no acute distress Resp Effort & Inspection: normal respiratory effort GI Other: Rectal exam shows the hemorrhoidectomy sites to be healing well, not infected, no induration, no redness Assessment & Plan Assessment & Plan (1) Bleeding hemorrhoids: Code(s): K64.9 - Unspecified hemorrhoids Category: Medical Plan: Status post hemorrhoidectomy. He is doing well postoperatively. He says that the surgery has helped a lot with this bleeding with bowel movements. His hemorrhoidectomy sites are healing well. I advised him to continue to avoid straining and constipation. He can follow up on a p.r.n. basis. Coding Level of Care Code Global (92664) Diagnoses Bleeding hemorrhoids K64.9
== END 2024-06-17 10:27 | disposition home or self-care (01) ==
PROVIDERS: PCP Internal Medicine; Visit Provider Surgery
DX: K64.9 Unspecified hemorrhoids (principal)
CPT/HCPCS: 99024

== ENCOUNTER → 2024-06-17 10:11 | Outpatient (BNVA) | payer OTHER, SELFPAY | PROVIDERS: PCP Internal Medicine; Visit Provider Surgery | DX: Z48.815 Encounter for surgical aftercare following surgery on the digestive system (principal); Z98.890 Other specified postprocedural states | CPT/HCPCS: 99212 ==

== ENCOUNTER 2024-06-21 11:41 | Outpatient (REF) | payer OTHER, SELFPAY ==
[2024-06-21 13:06] LABS: Hematocrit 41.1 % (42.0-52.0); Hemoglobin 13.2 g/dl (14.0-18.0); Mean Corpuscular HGB Conc 32.1 g/dl (31.0-36.0); Mean Corpuscular Hemoglobin 28.4 pg (27.0-33.0); Mean Corpuscular Volume 88.6 fL (80.0-98.0); Mean Platelet Volume 9.1 fL (9.4-12.4); Platelet Count 301 X10*3/uL (160-400); Red Blood Count 4.64 X10*6/uL (4.60-5.80); White Blood Count 8.4 X10*3/uL (4.8-10.8)
== END 2024-06-21 11:42 | disposition home or self-care (01) ==
LOC: HO.LAB 11:41
PROVIDERS: PCP Internal Medicine; Visit Provider Nurse Practitioner Family
DX: K21.9 Gastro-esophageal reflux disease without esophagitis (principal); K58.2 Mixed irritable bowel syndrome; K52.9 Noninfective gastroenteritis and colitis, unspecified; R10.32 Left lower quadrant pain; D50.0 Iron deficiency anemia secondary to blood loss (chronic)
CPT/HCPCS: 36415; 85027; 99212

== ENCOUNTER 2024-06-21 11:41 | Outpatient (AMB) | payer OTHER, SELFPAY ==
--- NOTE | 2024-06-21 11:54 | A.OFFVIS_ITS ---
Vital Signs 06/21/24 11:56 Height 5 ft 9 in Weight 186 lb 8.177 oz BMI 27.5 BP 142/96 H Blood Pressure Location Lt brachial Position Sitting Pulse 68 Pulse Source Pulse Oximeter Pulse Oximetry (%) 98 Oxygen Delivery Method Room Air Intake Visit Reasons: s/p egd Intake Note: Relevant Flags or Indicators ? Requires Double Bottom Driver? N Skip presents in office today for a scheduled s/p FUV CC; Since last visit; labs ordered ? none. Rx ordered ? no. Diagnostics/images ordered ? none. Relevant GI Sx as reported per pt? Pt reports he is being monitored for chronic anemia due to hemorrhoids. Pt has since had hemorrhoidectomy but requires repeat labs to ensure that his red count has increased. ? Hx of any recent surgeries? EGD via Dr. Pierre. Hemorrhoidectomy via Dr. Buck. Double Bottom Driver Required: No Allergies varenicline [From Chantix] Adverse Reaction (Intermediate, Verified 06/21/24 11:55) vivid dreams HPI HPI s/p egd: Details: LAST VISIT Chronic diarrhea Left lower quadrant pain Anemia IBS (irritable bowel syndrome) Plan Referral to Hematology workup anemia. Patient does have rectal bleed occasionally, however it should be that low. Patient should take iron supplements. Might need iron infusion. Patient will take 2 Citrucel after breakfast and sucralfate at lunchtime and at dinner. Patient has upper endoscopy scheduled for May and follow-up appointment with me afterwards. Continue avoiding dietary triggers and late night snacking. Staying upright for minimum 3 hours after meals discussed with patient. Patient will call our office if he will have any other GI concerning symptoms. He is agreeable to this plan and verbalizes understanding of instructions. He was given the opportunity to ask questions and all questions answered. ? Thank you for allowing me to participate in his care Orders Referrals Hematology & Oncology Referral D64.9 Medications New methylcellulose (laxative) (Citrucel) take it with full glass of water 500 mg PO DAILY 90 tabs 2RF K59.00 UPPER ENDOSCOPY Findings: Larynx:normal Esophagus: GE junction at 40 cm, diaphragm hiatus at 42 cm, consistent with 2 cm sliding hiatal hernia, possible short segment barretts, bx taken Stomach: mild erythema . Biopsies were obtained. Grade 2 flap valve on retroflexed examination of the cardia. Duodenum: Normal bulb and descending duodenum, bx taken Intervention: Biopsies as noted above, Impression/Findings: gastritis possible barretts PLAN: await bx GERD precautions can try PPI trial if ongoing sx PATOLOGY RESULTS: Diagnosis A. Duodenum, biopsy: Duodenal mucosa within normal limits. B. Stomach, biopsy: Antral-type mucosa with moderate chronic active inflammation; negative for H. pylori. C. GE junction, biopsy: - Cardiac-type mucosa with moderate chronic, focally active, inflammation; no intestinal metaplasia seen. - Squamous mucosa within normal limits. D. Esophagus, distal, biopsy: Squamous epithelium within normal limits; no inflammation seen. E. Esophagus, proximal, biopsy: Squamous epithelium within normal limits; no inflammation seen TODAY'S VISIT Patient is here today for follow-up and to discuss upper endoscopy results. Patient denies any ill effects from anesthesia or procedure itself. Patient reports to be feeling better since the procedure. Patient had hemorrhoidectomy and currently patient has no more rectal bleeding. He is moving his bowels better. Patient started taking Citrucel 2 tablets every day and his bowels normalized. After hemorrhoidectomy patient started taking 2 stool softeners. Patient denies any rectal pain. Had follow-up appointment with Dr. Buck last . Patient has seen Hematology and has a follow-up appointment. Last H&H Laboratory Tests 04/16/24 05/12/24 09:56 08:43 Hgb 7.6 L 10.3 L D Hct 27.3 L 35.2 L D Patient is taking sucralfate twice a day and states that his symptoms are suppressed. Discussed with him biopsy results of [facility] upper endoscopy. Active chronic inflammation without H pylori seen in his stomach and EG junction. Negative for esophagitis or Tubbs's. [facility] Medical History Sleep disturbance, unspecified Third degree malagon of multiple sites Right upper quadrant pain Chronic diarrhea Left lower quadrant pain Bleeding hemorrhoids Encounter for smoking cessation counseling Surgical History Hx of endoscopy Hx of arthroscopy of knee (~05/2023) Hx of colonoscopy H/O hemorrhoidectomy (03/19/22) Family History Unknown Diabetes Father Cancer of unknown origin Social History Housing: Apartment Are you a primary child care nurse to a significant other at home: No Do you presently have visiting nurse or other home services: No Alcohol intake: current Alcohol intake frequency: 3 or more drinks per day Alcohol type: beer Patient Tobacco Use Status: Current everyday Tobacco user Tobacco use type: Cigarette Cigarettes Per Day: 10 e-Cigarette/Vaping Use: Never Used Second Hand Smoke Exposure: No Substance Use Type: Marijuana service: No Current occupational status: unemployed Current occupation: [employer] Current occupational exposures/hazards: No Cognitive needs: No Hearing needs: No Vision needs: Yes Review of Systems Const Denies weight gain and Denies weight loss ENT Reports no additional complaints, Denies dysphagia and Denies odynophagia Card Reports no additional complaints Resp Reports no additional complaints GI Denies abdominal pain, Denies belching, Denies melena, Denies bloating, Denies change in bowel habits, Denies dysphagia, Denies excessive flatus, Denies dyspepsia, Denies heartburn, Denies diarrhea, Denies loose stools, Denies nausea, Denies odynophagia and Denies vomiting Reports no additional complaints Musc Reports no additional complaints Neuro Reports no additional complaints Psych Reports no additional complaints Endo Reports no additional complaints Physical Exam Vital Signs: Last Vital Signs Pulse 68 06/21/24 11:56 BP 142/96 H 06/21/24 11:56 Pulse Ox 98 06/21/24 11:56 Oxygen Delivery Method Room Air 06/21/24 11:56 BMI result Body Mass Index 27.5 Const General: healthy appearing, no acute distress and well developed Nutritional Appearance: well nourished Orientation/consciousness: patient oriented x3 Resp Effort & Inspection: normal respiratory effort, able to speak in complete sentences, no tracheal deviation and symmetric chest movement Auscultation: clear to auscultation bilaterally Cardio Rate: regular rate GI Inspection: Yes normal to inspection and No distended Palpation (GI): Soft to palpation, not firm, nontender and No hepatosplenomegaly present Auscultation: normal bowel sounds General: Yes no CVA tenderness Back/Spine/Pelvis Back: no CVA tenderness Skin General skin exam: elasticity normal, turgor normal and dry skin Neuro General: patient oriented x3 Psych Appearance: grossly normal Mental Status: mental status grossly normal Speech and movement: Normal speech and movement present Assessment & Plan Assessment & Plan (1) Chronic diarrhea: Code(s): K52.9 - Noninfective gastroenteritis and colitis, unspecified Category: Medical (2) Left lower quadrant pain: Code(s): R10.32 - Left lower quadrant pain Category: Medical (3) Anemia: Code(s): D64.9 - Anemia, unspecified Qualifiers: Anemia type: iron deficiency Iron deficiency anemia type: chronic blood loss Qualified Code(s): D50.0 - Iron deficiency anemia secondary to blood loss (chronic) (4) IBS (irritable bowel syndrome): Code(s): K58.9 - Irritable bowel syndrome, unspecified Qualifiers: Irritable bowel syndrome type: with both diarrhea and constipation Qualified Code(s): K58.2 - Mixed irritable bowel syndrome (5) GERD (gastroesophageal reflux disease): Code(s): K21.9 - Gastro-esophageal reflux disease without esophagitis Qualifiers: Esophagitis presence: without esophagitis Qualified Code(s): K21.9 - Gastro-esophageal reflux disease without esophagitis Plan Will repeat blood work today. If patient will have low H&H we will order capsule to find other source of bleeding then hemorrhoids. Currently patient denies any rectal bleeding. His stools are normal color and formed. Patient has not taken iron for the past couple weeks since his surgery in the beginning of this month. He will start taking as omeprazole in the morning and will decrease sucralfate till 1 a day at bedtime. Avoid dietary triggers and late night snacking. Continue taking Citrucel daily. Patient will turn in 6 months, sooner on as needed basis. He is agreeable to this plan and verbalizes understanding of instructions. He was given the opportunity to ask questions and all questions answered. Patient requested to refill 1 month supply of his nicotine patches. Orders: Orders Complete Blood Count no Diff Today K21.9 - Gastro-esophageal reflux disease without esophagitis Medications: New esomeprazole magnesium (Nexium) 40 mg PO DAILY 30 caps 5RF K21.9 - Gastro- esophageal reflux disease without esophagitis Changed From sucralfate 1 g PO BID 60 tabs 1RF To sucralfate 1 g PO BEDTIME 30 tabs 2RF Refilled nicotine 1 patch transdermal Q24H 30 ea 0RF Coding Level of Care Code Est Pt Level 4 (50448) Diagnoses Chronic diarrhea K52.9 Left lower quadrant pain R10.32 Iron deficiency anemia due to chronic blood loss D50.0 Anemia type: iron deficiency Iron deficiency anemia type: chronic blood loss Irritable bowel syndrome with both constipation and diarrhea K58.2 Irritable bowel syndrome type: with both diarrhea and constipation Gastroesophageal reflux disease without esophagitis K21.9 Esophagitis presence: without esophagitis Time Spent (min) 35 Comment 20 minutes spent with patient and additional 15 minutes spent reviewing his records
[2024-06-21 11:56] VITALS: BP 142/96; PULSE 68; O2SAT 98; BMI 27.5
== END 2024-06-21 12:23 | disposition home or self-care (01) ==
PROVIDERS: PCP Internal Medicine; Visit Provider Nurse Practitioner Family
DX: K58.2 Mixed irritable bowel syndrome (principal); D50.0 Iron deficiency anemia secondary to blood loss (chronic); K21.9 Gastro-esophageal reflux disease without esophagitis
CPT/HCPCS: 99214

== ENCOUNTER 2024-09-08 08:40 | Outpatient (REF) | payer OTHER, SELFPAY ==
[2024-09-08 10:07] LABS: MANUAL DIFF FLAG NO
[2024-09-08 10:45] LABS: Basophils Absolute Auto 0.1 X10*3/uL (0.0-0.2); Basophils Percent Auto 1.2 % (0-2); Eosinophils Absolute Auto 0.1 X10*3/uL (0.0-0.4); Eosinophils Percent Auto 2.3 % (0-4); Hematocrit 43.9 % (42.0-52.0); Hemoglobin 14.9 g/dl (14.0-18.0); Imm Gran Abs Auto 0.01 X10*3/uL (0.00-0.03); Imm Gran Pct Auto 0.2 % (0.0-0.4); Lymphocytes Absolute Auto 1.8 X10*3/uL (1.2-4.9); Lymphocytes Percent Auto 29.3 % (20-40); Mean Corpuscular HGB Conc 33.9 g/dl (31.0-36.0); Mean Corpuscular Volume 91.5 fL (80.0-98.0); Mean Platelet Volume 8.8 fL (9.4-12.4); Monocytes Absolute Auto 0.7 X10*3/uL (0.1-1.2); Monocytes Percent Auto 11.4 % (2-11); Neutrophils Absolute Auto 3.4 x10*3/uL (2.0-8.3); Neutrophils Percent Auto 55.6 % (45-73); Platelet Count 263 X10*3/uL (160-400); Red Cell Distribution Width 14.7 % (11.0-16.0); White Blood Count 6.1 X10*3/uL (4.8-10.8)
[2024-09-08 11:18] LABS: Alanine Aminotransferase 20 U/L (0-40); Albumin Level 4.2 g/dL (3.5-5.0); Alkaline Phosphatase 90 U/L (39-117); Anion Gap 12 (12-20); Aspartate Amino Transferase 25 U/L (5-37); Bilirubin Total 0.5 mg/dL (0.0-1.0); Blood Urea Nitrogen 10 mg/dL (9-16); Calcium 8.9 mg/dL (8.4-10.2); Carbon Dioxide 26 mmol/L (22-29); Chloride 106 mmol/L (96-108); Cholesterol 250 mg/dL (<200); Estimated Glomerular Filt Rate > 60; Glucose Fasting 86 mg/dL (60-99); HDL Cholesterol 72 mg/dL (>40); Iron 104 mcg/dL (45-160); LDL Cholesterol Calculated 101 mg/dL (<100); Percent Iron Saturation 32 % (15-50); Potassium 3.8 mmol/L (3.3-5.1); Sodium 140 mmol/L (135-145); Total Iron Binding Capacity 328 mcg/dL (228-428); Triglycerides 386 mg/dL (<150); Unsaturated Iron Binding 224 ug/dL
[2024-09-08 11:35] LABS: Vitamin D 25-OH Total 32.2 ng/mL (>30)
[2024-09-08 11:43] LABS: Folate 7.2 ng/mL (> or = 4.0); Vitamin B12 182 pg/mL (200-900)
== END 2024-09-08 08:41 | disposition home or self-care (01) ==
LOC: HO.LAB 08:40
PROVIDERS: PCP Internal Medicine; Visit Provider Internal Medicine
DX: Z00.00 Encounter for general adult medical examination without abnormal findings (principal); K64.9 Unspecified hemorrhoids; J44.9 Chronic obstructive pulmonary disease, unspecified; F32.0 Major depressive disorder, single episode, mild; D64.9 Anemia, unspecified; E55.9 Vitamin D deficiency, unspecified; E53.8 Deficiency of other specified B group vitamins; Z28.21 Immunization not carried out because of patient refusal
CPT/HCPCS: 36415; 80053; 80061; 82306; 82607; 82746; 83540; 85025; 96127; 99212; 99396

== ENCOUNTER 2024-09-08 08:40 | Outpatient (AMB) | payer OTHER, SELFPAY ==
--- NOTE | 2024-09-08 08:44 | MHC.PC.OV ---
Vital Signs 09/08/24 08:45 Height 5 ft 9 in Weight 186 lb BMI 27.5 BP 126/82 Blood Pressure Location Lt brachial Position Sitting Intake Visit Reasons: Annual Exam Intake Note: Patient here for a physical exam Intramural Director Required: No Accompanied by: Self / Same As Patient Allergies varenicline [From Chantix] Adverse Reaction (Intermediate, Verified 09/08/24 09:21) vivid dreams Medication List - Last Reconciled 09/08/24 by Savannah Gonzalez MD albuterol sulfate 90 mcg/actuation (Ventolin HFA) 90 mcg inhalation DAILY cholecalciferol (vitamin D3) 50 mcg PO DAILY cyanocobalamin (vitamin B-12) (Vitamin B-12) 500 mcg PO DAILY ferrous sulfate 325 mg PO DAILY lorazepam 1 mg PO DAILY PRN nicotine 1 patch transdermal Q24H Tobacco use date assessed: 09/08/24 Dental Screening Dental Screen Date: 09/08/24 Did you have a dental visit in the last 12 months?: Yes Did you have a dental problem in the last 6 months where you did not have access to dental care?: No Was dental information given to patient?: Patient has dentist HPI HPI Comments History of Present Illness Details The patient is a 43-year-old male presenting for his annual physical examination. He has a history of anemia with a last hemoglobin level of 13.2. The patient experienced a significant improvement from a previous reading of 7.6. Prior investigations included a colonoscopy and an endoscopy due to anemia, both of which have been conducted in the past year. The patient expresses concerns about persistent low energy and fatigue. He reports adherence to his Vitamin D, Vitamin B12, and ferrous sulfate supplements. Additionally, he acknowledges ongoing tobacco use since the age of 14 and expresses a desire to quit, having used nicotine patches previously. He requires a higher dose patch due to his smoking habits, particularly when consuming alcohol. The patient also describes a pattern of anxiety and mild depression, with some apprehensions about existing lorazepam prescriptions due to potential side effects and interactions with alcohol. Lastly, he has undergone knee arthroscopy and hemorrhoid repair in the past year. He has COPD and was referred to pulmonology. He is asking for a refill in hydrocortisone cream for his hemorrhoids. Mild major depression and anxiety are present and will be referred to psych outpatient services. Declines referral for comprehensive Care Center due to alcohol abuse. [facility] Medical History (Updated 09/08/24 @ 17:28 by Savannah Gonzalez MD) Sleep disturbance, unspecified Third degree malagon of multiple sites Right upper quadrant pain Chronic diarrhea Left lower quadrant pain Bleeding hemorrhoids Encounter for smoking cessation counseling Surgical History Hx of endoscopy Hx of arthroscopy of knee (~05/2023) Hx of colonoscopy H/O hemorrhoidectomy (03/19/22) Family History (Updated 09/08/24 @ 09:28 by Savannah Gonzalez MD) Unknown Diabetes Father Colon cancer, Onset Age: 62 Mother Depression with anxiety Social History (Updated 09/08/24 @ 09:28 by Savannah Gonzalez MD) Housing: Apartment Are you a primary caregiver assisted living to a significant other at home: No Do you presently have visiting nurse or other home services: No Alcohol intake: current Alcohol intake frequency: 3 or more drinks per day Alcohol type: beer Patient Tobacco Use Status: Current everyday Tobacco user Tobacco use type: Cigarette Cigarettes Per Day: 10 e-Cigarette/Vaping Use: Never Used Second Hand Smoke Exposure: No Substance Use Type: Marijuana service: No Current occupational status: employed Current occupation: [employer] Current occupational exposures/hazards: No Cognitive needs: No Hearing needs: No Vision needs: Yes Questionnaire PHQ-9 Over the last 2 weeks, how often have you been bothered by any of the following problems? 1. Little interest or pleasure in doing things: not at all 2. Feeling down, depressed, or hopeless: not at all 3. Trouble falling or staying asleep, or sleeping too much: not at all 4. Feeling tired or having little energy: several days 5. Poor appetite or overeating: several days 6. Feeling bad about yourself - or that you are a failure or have let yourself or your family down: not at all 7. Trouble concentrating on things, such as reading the newspaper or watching television: not at all 8. Moving or speaking so slowly that other people could have noticed. Or the opposite - being so fidgety or restless that you have been moving around a lot more than usual: not at all 9. Thoughts that you would be better off or of hurting yourself in some way: not at all Total score: 2 Depression Screening Interpretation: Positive Depression Screening Follow-up: Existing condition and Follow-up Visit Requested Depression Screening Done: Yes 90283 - PHQ-9 Billing: Yes Source: Developed by Drs. Flynn Rand, Alia Caldwell, Rob Clark and colleagues, with an educational michael from [employer]. Thrive Questionnaire Date Thrive assessed: 09/08/24 I am a: Patient What is your living situation today?: I choose not to answer this question Within the past 12 months, did the food you bought not last and you didn't have the money to get more?: I choose not to answer this question Within the past 12 months, did you worry whether your food would run out before you got money to buy more?: I choose not to answer this question Do you have trouble paying for medicines?: I choose not to answer this question Do you have trouble getting transportation to medical appointments?: I choose not to answer this question Do you have trouble paying your heating and electricity bill?: I choose not to answer this question Do you have trouble taking care of your child, family member or friend?: I choose not to answer this question Do you have trouble with day-to-day activities such as bathing, preparing meals, shopping, managing finances, etc.?: I choose not to answer this question Are you currently unemployed and looking for a job?: I choose not to answer this question Are you interested in more education?: I choose not to answer this question Please select the resources that you would like help with: None Currently or been in a relationship where the following occur: I choose not to answer THRIVE Score: 0 AUDIT C Alcohol Use Questionnaire (AUDIT-C) 1. How often do you have a drink containing alcohol?: 2-4 times a month 2. How many drinks containing alcohol do you have on a typical day when you are drinking?: 5 or 6 3. How often do you have six or more drinks on one occasion?: Less than monthly Total Score: 5 TOLU-7 AMB Questionnaire TOLU-7 Date TOLU - 7 assessed: 09/08/24 Feeling nervous, anxious, or on edge: 3 = Nearly every day Not being able to stop or control worryin = Not at all Worrying too much about different things: 1 = Several days Trouble relaxin = Not at all Being so restless that it is hard to sit still: 0 = Not at all Becoming easily annoyed or irritable: 2 = More than half the days Feeling afraid as if something awful might happen: 0 = Not at all Total TOLU-7 score (0-4 normal; 5-9 mild; 10-14 moderate; 15-21 severe): 6 Source: Developed by Drs. Flynn Rand, Alia Caldwell, Rob Clark and colleagues, with an educational michael from [employer]. TOLU-7 Assessment Billing TOLU-7 Assessment Tool: TOLU-7 Assessment 48226 Review of Systems Const All systems reviewed & are unremarkable except as noted in HPI and below Card Denies chest pain at rest, Denies chest pain with activity, Denies edema, Denies irregular heart rhythm, Denies claudication, Denies dyspnea, Denies dyspnea on exertion, Denies orthopnea, Denies paroxysmal nocturnal dyspnea and Denies slow heart rate Resp Denies cough, Denies dyspnea, Denies dyspnea on exertion and Reports wheezing GI Denies abdominal pain, Denies change in bowel habits, Denies excessive flatus, Denies nausea and Denies vomiting Neuro Denies lack of coordination Psych Reports abnormal sleep pattern, Reports anxiety and Reports depression Aller/Immun Reports wheezing Physical exam (Primary Care) Vital Signs: Last Vital Signs BP 126/82 09/08/24 08:45 BMI result Body Mass Index 27.5 Tobacco/Smoking Status: Tobacco use Status Tobacco use date assessed 09/08/24 09/08/24 08:57 Patient Tobacco Use Status Current everyday Tobacco 09/08/24 09:28 Tobacco use type Cigarette 09/08/24 09:28 e-Cigarette/Vaping Use Never Used 09/08/24 09:28 Are you ready to quit: Yes Tobacco cessation counseling provided: Yes Items discussed: Nicotine replacement Relapse Prevention: discussed the importance of a supportive environment, discussed extending NRT, discussed negative mood or depression after quitting, weight gain after smoking is common and discussed dietary, exercise and/or lifestyle changes Number of minutes spent counselin CPT code: 32264 - 4-10 Minutes PHQ-9: PHQ-9 Score PHQ-9: Total score 2 09/08/24 09:30 Depression Screening Interpretation: Positive Depression Screening Follow-up: Existing condition and Follow-up Visit Requested Thrive Assessment: Date of Thrive Assessment Date Thrive assessed 09/08/24 09/08/24 08:57 Currently or been in a relationship where the following occur: I choose not to answer HENMT Head: Yes normal to inspection, Yes normocephalic and Yes atraumatic Ears: external ears normal Eyes General: appearance normal, both eyes and all related structures Eyelids: Yes eyelids normal Conjunctivae: conjunctivae normal Neck Neck: Yes normal visual inspection and Yes supple Resp Effort & Inspection: normal respiratory effort Auscultation: wheezes expiratory wheezes and lower bilaterally Cardio Jugular venous distension: no JVD Rate: regular rate Rhythm: regular rhythm Heart sounds: S1 normal heart sound present and S2 normal heart sound present GI Inspection: Yes normal to inspection Palpation (GI): Soft to palpation and nontender Auscultation: normal bowel sounds Skin General skin exam: no rashes or lesions noted Neuro General: no focal motor deficits Extrem General: Yes full ROM Psych Appearance: grossly normal Office Procedures Flu Questionnaire Does the patient have a severe egg allergy?: No Immunizations Fluarix Triv [id number] (PF) 45 mcg (15 mcg x 3)/0.5 mL IM syringe Performing Provider: Savannah Gonzalez MD [facility] Documented (not given) by: LEXII Dale on 09/08/24 08:57 Reason Not Given: Patient Refused Coding Level of Care Code Est Pt Level 3 (74876) Est Pt Prev Care 40-64y(92217) Diagnoses Physical exam Z00.00 Hemorrhoids K64.9 COPD (chronic obstructive pulmonary disease) J44.9 Mild major depression F32.0 Additional Codes TOLU-7 Assessment Billing - TOLU-7 Assessment Tool: TOLU-7 Assessment 72125 ([id number]) PHQ-9 - 33900 - PHQ-9 Billing: Yes ([id number]) Vital Signs *Quality* - CPT code: 58459 - 4-10 Minutes ([id number]) Time Spent (min) 35 Assessment & Plan Assessment & Plan (1) Physical exam: Code(s): Z00.00 - Encounter for general adult medical examination without abnormal findings Category: Medical (2) Hemorrhoids: Code(s): K64.9 - Unspecified hemorrhoids Category: Medical (3) COPD (chronic obstructive pulmonary disease): Code(s): J44.9 - Chronic obstructive pulmonary disease, unspecified Category: Medical (4) Mild major depression: Code(s): F32.0 - Major depressive disorder, single episode, mild Category: Medical Plan - Continue daily intake of ferrous sulfate, Vitamin , and Vitamin D supplements as prescribed - Recommend starting higher-dose nicotine patches at stage 3 for tobacco cessation - Provide an additional inhaler for respiratory needs - Referral to psychopatient services for evaluation and possible adjustment of anxiety medication - Monitor changes in smoking and alcohol use for future interventions - Repeat laboratory evaluations for anemia status and additional parameters - Ensure adequate follow-up for anxiety and depression concerns Patient was informed and verbally consented to the use of an ambient scribe for clinic note documentation during this visit. I discussed the patient's current health concerns, including anemia management with ferrous sulfate supplementation, the requirement for higher-dose nicotine patches to assist in smoking cessation, and the need for a daily inhaler. We reviewed his mental health, considering changing anxiety medication due to risks associated with lorazepam. I emphasized the importance of monitoring his smoking and alcohol consumption. A referral to psychopatient services was suggested for a thorough medication evaluation. We agreed on repeating laboratory evaluations to assess the ongoing status of his anemia and other relevant factors. Orders: Orders Influenza [id number] Immunization Today Z23 - Encounter for immunization Comprehensive [employer] Panel Fast Today Z00.00 - Encounter for general adult medical examination without abnormal findings Lipid Panel Today Z00.00 - Encounter for general adult medical examination without abnormal findings Vitamin D 25-OH Total Today E55.9 - Vitamin D deficiency, unspecified Vitamin B12 and Folate Today E53.8 - Deficiency of other specified B group vitamins Complete Blood Count Auto Diff Today D64.9 - Anemia, unspecified IRON PROFILE Today D64.9 - Anemia, unspecified Referrals Psychiatry Outpatient Consultation Service F32.0 - Major depressive disorder, single episode, mild, F41.1 - Generalized anxiety disorder Pulmonology Referral J44.9 - Chronic obstructive pulmonary disease, unspecified Medications: New hydrocortisone 2.5% 1 appl [place] BID-QID 2 weeks PRN 30 grams 1RF hemorrhoids K64.9 - Unspecified hemorrhoids fluticasone furoate-vilanterol 50-25 mcg/dose (Breo Ellipta) 1 inh inhalation Q24H 30 days 60 ea 1RF J44.9 - Chronic obstructive pulmonary disease, unspecified citalopram 10 mg PO DAILY 90 days 90 tabs 1RF F41.1 - Generalized anxiety disorder nicotine 1 patch transdermal DAILY 28 days 28 ea 0RF Changed From cyanocobalamin (vitamin B-12) (Vitamin B-12) 500 mcg PO DAILY To cyanocobalamin (vitamin B-12) (Vitamin B-12) 500 mcg PO DAILY 90 days 90 tabs 1RF From albuterol sulfate 90 mcg/actuation (Ventolin HFA) 90 mcg inhalation DAILY J44.9 - Chronic obstructive pulmonary disease, unspecified To Ventolin HFA 90 mcg/actuation (albuterol sulfate) 90 mcg inhalation DAILY 30 days 18 grams 1RF NS J44.9 - Chronic obstructive pulmonary disease, unspecified Refilled cholecalciferol (vitamin D3) 50 mcg PO DAILY 90 caps 3RF R79.89 - Other specified abnormal findings of blood chemistry Patient Instructions: - Continue taking all vitamins and prescribed medications as directed - Use the higher-dose nicotine patches to aid smoking cessation - Use the daily inhaler as prescribed, reserving the rescue inhaler for necessary use - Maintain regular follow-up appointments to monitor anxiety, depression, and anemia - Inform healthcare provider of any changes or worsening symptoms - Consider reduction of alcohol consumption; focus on smoking cessation first
[2024-09-08 08:45] VITALS: BP 126/82; BMI 27.5
== END 2024-09-08 09:36 | disposition home or self-care (01) ==
PROVIDERS: PCP Internal Medicine; Visit Provider Internal Medicine
DX: Z00.00 Encounter for general adult medical examination without abnormal findings (principal); K64.9 Unspecified hemorrhoids; J44.9 Chronic obstructive pulmonary disease, unspecified; F32.0 Major depressive disorder, single episode, mild; Z23 Encounter for immunization; F17.210 Nicotine dependence, cigarettes, uncomplicated

== ENCOUNTER 2024-09-21 09:32 | Outpatient (AMB) | payer OTHER, SELFPAY ==
[2024-09-21 09:36] VITALS: BP 138/66; PULSE 66; O2SAT 97; BMI 27.0
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
== END 2024-09-21 10:32 | disposition home or self-care (01) ==
PROVIDERS: PCP Internal Medicine; Visit Provider Nurse Practitioner Family
DX: J45.909 Unspecified asthma, uncomplicated (principal); F17.210 Nicotine dependence, cigarettes, uncomplicated; R05.9 Cough, unspecified
CPT/HCPCS: 99204

== ENCOUNTER → 2024-09-21 09:32 | Outpatient (BNVA) | payer OTHER, SELFPAY | PROVIDERS: PCP Internal Medicine; Visit Provider Nurse Practitioner Family | DX: J44.9 Chronic obstructive pulmonary disease, unspecified (principal); F17.210 Nicotine dependence, cigarettes, uncomplicated | CPT/HCPCS: 99202 ==

== ENCOUNTER 2024-09-24 10:11 | Outpatient (REF) | payer OTHER, SELFPAY ==
--- NOTE | ~2024-09-24 | XR_ITS ---
EXAMINATION: XR CHEST 2 VIEWS HISTORY: R05.9 - Cough, unspecified COMPARISON: Comparison is made with the prior examination dated 09/09/2016. FINDINGS: PA and lateral views of the chest are submitted. There is narrowing of the trachea in the transverse dimension, suggestive of saber-sheath configuration. The lungs are expanded and clear. There is no pleural effusion, pneumothorax, or pulmonary vascular congestion. The heart is normal in size. The bones are intact. 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 Clinical correlation is recommended. Electronically signed by: Flynn Farrell MD 09/24/2024 11:58 AM EST
== END 2024-09-24 10:12 | disposition home or self-care (01) ==
LOC: HO.XRAY 10:11
PROVIDERS: PCP Internal Medicine; Visit Provider Nurse Practitioner Family
DX: R05.9 Cough, unspecified (principal)
CPT/HCPCS: 71046

== ENCOUNTER 2024-10-25 20:18 | Emergency (ER) | payer OTHER, SELFPAY ==
--- NOTE | ~2024-10-25 | CT_ITS ---
CLINICAL HISTORY: fall on ice CT head without contrast Comparison: None Findings: No intra-axial mass, midline shift, hydrocephalus, or acute hemorrhage. No significant atrophy-like change or white matter disease. There is no sinus or mastoid fluid. The orbits are within normal limits. No skull fracture. IMPRESSION: 1. No acute intracranial findings. This document has been electronically signed by: Lucy Moscoso MD on 10/25/2024 22:10:05
--- NOTE | ~2024-10-25 | CT_ITS ---
CLINICAL HISTORY: fall on ice, neck pain CT cervical spine without contrast Comparison: None Findings: Straightening of the normal cervical lordosis. Vertebral body heights are well maintained. No significant degenerative change. No acute fractures or dislocations. Visualized intracranial contents are unremarkable. Soft tissues of the neck are normal. Lung apices are clear. IMPRESSION: No evidence of acute fracture or traumatic listhesis of the cervical spine. This document has been electronically signed by: Lucy Moscoso MD on 10/25/2024 22:10:56
--- NOTE | ~2024-10-25 | XR_ITS ---
CLINICAL HISTORY: fall on ice shoulder pain 3 view right shoulder Comparison: CR/WA/SR - XR SHOULDER RT MIN 2V - 05/04/23 20:34 EDT Findings: No fractures or dislocations. No significant loss of joint space or osteophytes. No erosions. No radiopaque foreign body. IMPRESSION: 1. No acute findings This document has been electronically signed by: Lucy Moscoso MD on 10/25/2024 21:37:26
[2024-10-25 20:55] VITALS: BP 131/90; PULSE 89; RESP 16; TEMP 36.4; O2SAT 96; BMI 26.2
[2024-10-26 00:40] VITALS: BP 132/84; PULSE 85; RESP 18; TEMP 36.6; O2SAT 95
--- NOTE | 2024-10-26 00:43 | PC.NURSE ---
Pt is a&ox4, no signs of distress. Pt reports 10/10 right arm/shoulder pain Pt reports he fell outside Plan of care ongoing.
--- NOTE | 2024-10-26 01:00 | ED_ITS ---
HPI - Extremity Problem General Chief complaint: Extremity Injury, Upper Stated complaint: right shoulder inj Time Seen by Provider: 10/26/24 01:00 History of Present Illness ED Provider: Quoc MELO Narrative: The patient is a 44-year-old male who says that he was shoveling snow and chopping up ice yesterday. At 1 point he slipped on the ice and landed on his right back in the region of his right scapula. He has pain in the right side of his neck, pain in the shoulder, pain in the region of the scapula, and pain radiating down his right arm. He feels that he has numbness in the right arm. Related Data Home Medications ?Medication ?Instructions ?Recorded ?Confirmed ferrous sulfate 325 mg (65 mg 325 mg PO DAILY 04/26/24 09/21/24 iron) tablet Previous Rx's ?Medication ?Instructions ?Recorded nicotine 14 mg/24 hr daily 1 patch transdermal Q24H #30 ea 06/21/24 transdermal patch Ventolin HFA 90 mcg/actuation 90 mcg inhalation DAILY 30 days 09/08/24 aerosol inhaler (albuterol sulfate) #18 grams cholecalciferol (vitamin D3) 50 50 mcg PO DAILY #90 caps 09/08/24 mcg (2,000 unit) capsule citalopram 10 mg tablet 10 mg PO DAILY 90 days #90 tabs 09/08/24 cyanocobalamin (vitamin B-12) 500 500 mcg PO DAILY 90 days #90 tabs 09/08/24 mcg tablet (Vitamin B-12) hydrocortisone 2.5 % topical cream 1 appl ID BID-QID PRN hemorrhoids 09/08/24 with perineal applicator 2 weeks #30 grams nicotine 21 mg/24 hr daily 1 patch transdermal DAILY 28 days 09/08/24 transdermal patch #28 ea atorvastatin 20 mg tablet 20 mg PO BEDTIME 90 days #90 tabs 09/12/24 doxycycline hyclate 100 mg capsule 100 mg PO BID #14 caps 09/21/24 fluticasone furoate 100 1 inh inhalation DAILY #60 ea 09/21/24 mcg-vilanterol 25 mcg/dose inhalation powder (Breo Ellipta) cyclobenzaprine 10 mg tablet 10 mg PO TID PRN muscle spasm #14 10/26/24 tabs ibuprofen 600 mg tablet 600 mg PO Q6H PRN pain #14 tabs 10/26/24 Allergies Allergy/AdvReac Type Severity Reaction Status Date / Time varenicline [From Chantix] AdvReac Intermediate vivid Verified 10/25/24 20:56 dreams Review of Systems Review of Systems: Yes all other systems are reviewed and are negative PMFSH Past Medical History Medical History Sleep disturbance, unspecified Third degree malagon of multiple sites Right upper quadrant pain Chronic diarrhea Left lower quadrant pain Bleeding hemorrhoids Encounter for smoking cessation counseling Surgical History Hx of endoscopy Hx of arthroscopy of knee (~05/2023) Hx of colonoscopy H/O hemorrhoidectomy (03/19/22) Family History Family History (Updated 09/08/24 @ 09:28 by Savannah Gonzalez MD) Unknown Diabetes Father Colon cancer, Onset Age: 62 Mother Depression with anxiety Social History Social History (Updated 09/21/24 @ 09:43 by Stacey Tinajero LPN) Housing: Apartment Are you a primary career coordinator to a significant other at home: No Do you presently have visiting nurse or other home services: No Alcohol intake: current Alcohol intake frequency: does not drink Alcohol type: beer Patient Tobacco Use Status: Former Tobacco user Tobacco use type: Cigarette Cigarettes Per Day: 10 Years Smoked: quit 1 day ago/ using patches. Smoked in Last 30 Days: Yes e-Cigarette/Vaping Use: Never Used Second Hand Smoke Exposure: No Use of substances other than those prescribed or required for medical reasons: Yes Substance Use Type: Marijuana Advance Directives: No Advance Directives Information Provided: Yes Do you have a plan to hurt others: No Plan service: No Current occupational status: employed Current occupation: [employer] Current occupational exposures/hazards: No Cognitive needs: No Hearing needs: No Vision needs: Yes Physical Exam Vital Signs: Vital Signs: Last Vital Signs Temp 97.8 F 10/26/24 01:35 Pulse 85 10/26/24 01:35 Resp 18 10/26/24 01:35 BP 132/84 10/26/24 01:35 Pulse Ox 95 10/26/24 01:35 O2 Del Method Room Air 10/26/24 01:35 BMI result Body Mass Index 26.2 Const: Other: the patient is a 44-year-old male. He looks as though he is ordinarily healthy and fit. He was standing by the side of the stretcher and looked somewhat uncomfortable. His mental status was normal. No respiratory difficulty. HEENT: Other: No sign of trauma to the head or the face. Eyes: General: appearance normal, both eyes and all related structures Neck: Other: He has some tenderness to the muscles of the right side of the neck but reasonably good range of motion of the neck. No marked midline vertebral tenderness. Chest: Other: There is no anterior chest wall tenderness. No subcutaneous crepitus or emphysema. The patient has a lot of tenderness in the region of his right posterior chest wall in the region of the scapula. Resp: Effort & Inspection: normal respiratory effort Auscultation: clear to auscultation bilaterally Cardio: Rate: regular rate Rhythm: regular rhythm Heart sounds: S1 normal heart sound present and S2 normal heart sound present GI: Other: Abdomen is soft and nontender Back/Spine/Pelvis: Other: the patient has a lot of tenderness around the right scapula. He has tenderness in the paraspinous muscles of the right upper back between the midline of the spine and the right scapula. He also has tenderness in the muscles surrounding the right scapula generally. Skin: Other: skin is intact. No obvious bruising in the region of the right scapula. He was wearing lidocaine patches on the skin in this area. Neuro: Other: The patient is awake and alert with a normal mental status. Cranial nerves are intact. He reports generalized diminished sensation throughout the right arm. He has intact motor function in the right arm in the right hand. Gait is normal. No pronator drift. Extrem: Other: The patient has a lot of tenderness in the region of the right scapula and pain with moving the right arm but he is able to move the right shoulder through a reasonably good range of motion. Medications Administered Discontinued Medications Generic Name Dose Route Start Last Admin Trade Name Freq PRN Reason Stop Dose Admin Acetaminophen 975 mg 10/26/24 01:13 10/26/24 01:26 Acetaminophen 325 Mg Tablet PO 10/26/24 01:14 975 mg ONCE ONE Administration Cyclobenzaprine HCl 10 mg 10/26/24 01:12 10/26/24 01:26 Cyclobenzaprine Hcl 10 Mg Tablet PO 10/26/24 01:13 10 mg ONCE ONE Administration Ketorolac Tromethamine 30 mg 10/26/24 01:12 10/26/24 01:27 Ketorolac Tromethamine 30 Mg/Ml Vial IM 10/26/24 01:13 30 mg ONCE ONE Administration Medical Decision Making Medical Decision Making [facility] Narrative: The patient is a generally healthy 44-year-old male who was shoveling snow and ice yesterday when he slipped and fell backwards. He landed primarily on his right upper back in the region of the right scapula. He has had a lot of pain in the right upper back and the shoulder generally and has a sense of numbness and tingling in the right hand. A CT scan of the head and the cervical spine has been ordered at triage. These are negative for acute injuries. A right shoulder x-ray had also been ordered which was negative. On my exam the patient has a lot of tenderness in the musculature around the right scapula. He is complaining of numbness in the right arm but I do not feel he has any clear neurosurgical abnormality apparent. He moves the arm reasonably well. I think he is having some kind of posttraumatic paresthesias in the arm. I do not have a high suspicion for a thoracic vertebral fracture. To the extent that the thoracic vertebra are visualized on the shoulder x-ray I do not see anything that suggests any fractures. He does not have a great deal of midline vertebral tenderness in the upper back. Overall I think this is is probably some kind of a stinger type injury which will likely resolve with rest. The patient is advised to rest and take it easy for the next several days. He was offered a sling but he says he has a sling at home. He is advised to use the sling. He will be prescribed ibuprofen and cyclobenzaprine. He is given a work note for the next several days. He should follow up with his PCP or return to the emergency room if worse. Discharge Plan Discharge Clinical Impression: Contusion of right shoulder region, Right arm numbness, Fall Patient Disposition: Home, Self-Care Additional Instructions: I do not see any bony injuries on your shoulder x-ray. I think you have a bad contusion which is causing some nerve irritation. Please do your best to try to rest your right arm. Use the sling that you have at home to rest your right arm. You may apply ice packs to the area of pain several times a day for 10-15 minutes at a time. Always keep a dry cloth between the ice pack and your skin. You may take 2 extra-strength acetaminophen (Tylenol) together up to 3 times per day. You may also use the prescribed ibuprofen as needed for pain. In addition there is a prescription for a muscle relaxant, cyclobenzaprine, which you may use up to 3 times a day. Do not drive on this medication because it can make you drowsy. Please contact your regular doctor's office in the morning for a follow up appointment in a few days for a recheck. You have a work note for this week. My hope is that by Friday you will be feeling significantly better and can return to work. If you are significantly worse please return to the emergency room. Prescriptions: New ibuprofen 600 mg tablet 600 mg PO Q6H PRN (Reason: pain) Qty: 14 0RF cyclobenzaprine 10 mg tablet 10 mg PO TID PRN (Reason: muscle spasm) Qty: 14 0RF No Action atorvastatin 20 mg tablet 20 mg PO BEDTIME 90 Days Qty: 90 1RF nicotine 14 mg/24 hr patch 24 hour 1 patch TRANSDERMAL Q24H Qty: 30 0RF ferrous sulfate 325 mg (65 mg iron) tablet 325 mg PO DAILY hydrocortisone 2.5 % cream with perineal applicator 1 appl ID BID-QID PRN (Reason: hemorrhoids) 14 Days Qty: 30 1RF cholecalciferol (vitamin D3) 50 mcg (2,000 unit) capsule 50 mcg PO DAILY Qty: 90 3RF cyanocobalamin (vitamin B-12) [Vitamin B-12] 500 mcg tablet 500 mcg PO DAILY 90 Days Qty: 90 1RF albuterol sulfate [Ventolin HFA] 90 mcg/actuation HFA aerosol inhaler 90 mcg inhalation DAILY 30 Days Qty: 18 1RF nicotine 21 mg/24 hr patch 24 hour 1 patch transdermal DAILY 28 Days Qty: 28 0RF citalopram 10 mg tablet 10 mg PO DAILY 90 Days Qty: 90 1RF doxycycline hyclate 100 mg capsule 100 mg PO BID Qty: 14 0RF fluticasone furoate-vilanterol [Breo Ellipta] 100-25 mcg/dose blister with device 1 inh inhalation DAILY Qty: 60 3RF Referrals: Savannah Hobbs MD [Primary Care Provider] - (fall, right shoulder/scapular pain, right arm numbness) Stand Alone Forms: Work/School Release Interventions: ED Discharge Assessment Last Done: 10/26/24 01:35 Discharge Date/Time: 10/26/24 01:37 Print Language: Mosotho
[2024-10-26] MEDS: Cyclobenzaprine HCl 10 MG TABLET PO (01:26)
[2024-10-26] MEDS: Acetaminophen 325 MG TABLET 975 MG PO (01:26)
[2024-10-26] MEDS: Ketorolac Tromethamine 30 MG/ML VIAL IM (01:27)
[2024-10-26 01:35] VITALS: BP 132/84; PULSE 85; RESP 18; TEMP 36.6; O2SAT 95
--- NOTE | 2024-10-26 01:35 | PC.NURSE ---
Pt medicated per [facility] Plan of care ongoing.
== END 2024-10-26 01:37 | disposition home or self-care (01) ==
PROVIDERS: Emergency Provider Emergency Medicine; PCP Internal Medicine
DX: S40.011A Contusion of right shoulder, initial encounter (principal); R20.0 Anesthesia of skin; M54.6 Pain in thoracic spine; M54.2 Cervicalgia; M79.601 Pain in right arm; R51.9 Headache, unspecified; W00.0XXA Fall on same level due to ice and snow, initial encounter; Y93.H1 Activity, digging, shoveling and raking; Y92.89 Other specified places as the place of occurrence of the external cause; Y99.8 Other external cause status; Z87.891 Personal history of nicotine dependence
CPT/HCPCS: 70450; 72125; 73030; 96372; 99284; J1885

== ENCOUNTER → 2024-10-25 20:59 | Outpatient (BNV) | payer OTHER, SELFPAY | PROVIDERS: PCP Internal Medicine; Visit Provider Student in an Organized Health Care Education/Training Program | DX: M25.511 Pain in right shoulder (principal) | CPT/HCPCS: 70450; 72125; 73030 ==

== ENCOUNTER 2024-10-28 11:37 | Emergency (ER) | payer OTHER, SELFPAY ==
--- NOTE | ~2024-10-28 | CT_ITS ---
EXAMINATION: CT SHOULDER WITHOUT CONTRAST, RIGHT CLINICAL INFORMATION: Fall, rule out fracture. COMPARISON: Right shoulder plain films 10/25/2024. TECHNIQUE: Spiral CT imaging of the right shoulder performed in axial plane without IV contrast. Multiplanar reformatted images constructed from the axial data set. This CT examination was performed using dose optimization techniques as appropriate, variously including the following: *Automated exposure control *Adjustment of mA and/or kV according to patient size (this includes techniques or standardized protocols for targeted exams where dose is matched to indication/reason for exam; i.e. extremities or head) *Use of iterative reconstruction technique FINDINGS: No fracture, dislocation, or suspicious bone lesion. Normal bone mineralization. Intact clavicle. Intact scapula. Intact proximal humerus. Normal alignment. Glenohumeral joint space is normal. AC joint is normal and intact. No significant arthropathy. There is a type II acromion. The subacromial space is preserved. No significant joint effusion. The imaged musculature of the right shoulder girdle is normal in CT appearance. No hematoma. Unremarkable appearing neurovascular bundle. Imaged right lung is clear. The imaged ribs on the right are intact. CT/CT shoulder RT wo IV con IMPRESSION: 1. No fracture or dislocation of the right shoulder. 2. The imaged soft tissues and shoulder girdle musculature appear normal. Electronically signed by: Lance Adkins MD 10/28/2024 12:55 PM [facility]
[2024-10-28 11:57] VITALS: BP 158/102; PULSE 88; RESP 18; TEMP 36.6; O2SAT 98; BMI 26.7
--- NOTE | 2024-10-28 12:03 | ED.EXTPRO ---
HPI - Extremity Problem General Chief complaint: Extremity Injury, Upper Stated complaint: Shoulder pain Time Seen by Provider: 10/28/24 13:46 Source: patient Mode of arrival: ambulatory Limitations: no limitations History of Present Illness ED Provider: Frankie Lai HPI Narrative: 44 yold male with pmh of TOLU, asthma, and depression presents tot he ED for right shoulder pain. Patient states recently fell on shoulder and was seen here with normal images. patient states still have right shoulder pain on movement. patietn states no neck pain, headache, slurred speech, loss of vision, swelling, redness, red streaks, hotness, or coldness Related Data Home Medications ?Medication ?Instructions ?Recorded ?Confirmed ferrous sulfate 325 mg (65 mg 325 mg PO DAILY 04/26/24 09/21/24 iron) tablet Previous Rx's ?Medication ?Instructions ?Recorded nicotine 14 mg/24 hr daily 1 patch transdermal Q24H #30 ea 06/21/24 transdermal patch Ventolin HFA 90 mcg/actuation 90 mcg inhalation DAILY 30 days 09/08/24 aerosol inhaler (albuterol sulfate) #18 grams cholecalciferol (vitamin D3) 50 50 mcg PO DAILY #90 caps 09/08/24 mcg (2,000 unit) capsule citalopram 10 mg tablet 10 mg PO DAILY 90 days #90 tabs 09/08/24 cyanocobalamin (vitamin B-12) 500 500 mcg PO DAILY 90 days #90 tabs 09/08/24 mcg tablet (Vitamin B-12) hydrocortisone 2.5 % topical cream 1 appl [place] BID-QID PRN hemorrhoids 09/08/24 with perineal applicator 2 weeks #30 grams nicotine 21 mg/24 hr daily 1 patch transdermal DAILY 28 days 09/08/24 transdermal patch #28 ea atorvastatin 20 mg tablet 20 mg PO BEDTIME 90 days #90 tabs 09/12/24 doxycycline hyclate 100 mg capsule 100 mg PO BID #14 caps 09/21/24 fluticasone furoate 100 1 inh inhalation DAILY #60 ea 09/21/24 mcg-vilanterol 25 mcg/dose inhalation powder (Breo Ellipta) cyclobenzaprine 10 mg tablet 10 mg PO TID PRN muscle spasm #14 10/26/24 tabs ibuprofen 600 mg tablet 600 mg PO Q6H PRN pain #14 tabs 10/26/24 prednisone 20 mg tablet 40 mg (2 x 20 mg) PO DAILY 5 days 10/28/24 #10 tabs Allergies Allergy/AdvReac Type Severity Reaction Status Date / Time varenicline [From Chantix] AdvReac Intermediate vivid Verified 10/28/24 11:59 dreams Review of Systems Review of Systems: Right shoulder pain Yes all other systems are reviewed and are negative PMFSH Past Medical History Medical History Sleep disturbance, unspecified Third degree malagon of multiple sites Right upper quadrant pain Chronic diarrhea Left lower quadrant pain Bleeding hemorrhoids Encounter for smoking cessation counseling Surgical History Hx of endoscopy Hx of arthroscopy of knee (~05/2023) Hx of colonoscopy H/O hemorrhoidectomy (03/19/22) Family History Family History (Updated 09/08/24 @ 09:28 by Savannah Gonzalez MD) Unknown Diabetes Father Colon cancer, Onset Age: 62 Mother Depression with anxiety Social History Social History (Updated 09/21/24 @ 09:43 by Stacey Tinajero LPN) Housing: Apartment Are you a primary healthcare prof to a significant other at home: No Do you presently have visiting nurse or other home services: No Alcohol intake: current Alcohol intake frequency: does not drink Alcohol type: beer Patient Tobacco Use Status: Former Tobacco user Tobacco use type: Cigarette Cigarettes Per Day: 10 Years Smoked: quit 1 day ago/ using patches. e-Cigarette/Vaping Use: Never Used Second Hand Smoke Exposure: No Substance Use Type: Marijuana service: No Current occupational status: employed Current occupation: [employer] Current occupational exposures/hazards: No Cognitive needs: No Hearing needs: No Vision needs: Yes Physical Exam Vital Signs: Vital Signs: Last Vital Signs Temp 97.8 F 10/28/24 11:57 Pulse 67 10/28/24 14:02 Resp 18 10/28/24 11:57 BP 143/94 H 10/28/24 14:02 Pulse Ox 98 10/28/24 11:57 O2 Del Method Room Air 10/28/24 11:57 BMI result Body Mass Index 26.7 Const: General: cooperative, healthy appearing, comfortable, no acute distress, well developed, alert, awake and Physically active Orientation/consciousness: patient oriented x3 HEENT: Head: Yes normal to inspection, Yes No palpable skull fracture present, Yes normocephalic, Yes atraumatic, No abrasion, No Acrocyanosis present, No Genao's sign, No contusion, No cranial bruits, No hematoma, No laceration, No occipital foramen tenderness, No palpable skull fracture, No raccoon eyes, No scalp lesion, No scalp tenderness, No Temporal artery tenderness present and No periorbital ecchymosis Ears: hearing grossly normal bilaterally, external ears normal, TM's normal bilaterally, TM normal on the right, TM normal on the left, EAC's normal, mastoids normal and no periauricular adenopathy Face and sinus: Yes normal facial exam, Yes sinuses nontender, Yes face symmetric and Yes normal transillumination of sinuses Throat: Yes posterior oropharynx normal, Yes tonsils normal and Yes uvula midline Eyes: General: appearance normal, both eyes and all related structures Neck: Neck: Yes normal visual inspection, Yes full ROM, Yes no lymphadenopathy, Yes no meningeal signs, Yes trachea midline, Yes supple, No anterior neck swelling, No bilateral parotid enlargement and No lymphadenopathy Chest: Chest palpation & inspection: normal inspection of the chest and normal palpation of entire chest wall Resp: Effort & Inspection: normal respiratory effort and able to speak in complete sentences Auscultation: clear to auscultation bilaterally Cardio: Jugular venous distension: no JVD Heart sounds: S1 normal heart sound present and S2 normal heart sound present GI: Inspection: Yes normal to inspection Palpation (GI): Soft to palpation, not firm, nontender, no guarding and not rigid : General: Yes no CVA tenderness Back/Spine/Pelvis: Back: no CVA tenderness and No back tenderness Skin: General skin exam: no rashes or lesions noted, elasticity normal and turgor normal Neuro: General: patient oriented x3, gait normal, tone normal, moves all extremities, Normal light touch and pain sensation, no meningeal signs, no focal motor deficits and CN's II-XI intact bilaterally Extrem: General: Yes normal to inspection and Yes full ROM Psych: Appearance: grossly normal, well kempt and not disheveled Course Course Course Narrative: RME: 44-year-old male presents to ED for right shoulder pain radiating down right arm. Patient states pain is worse on movement of shoulder. Patient was seen here recently for fall onto right shoulder had normal x-ray was still having pain since the fall. Patient denies any bluish black discoloration or swelling of upper extremity. Patient denies any history of blood clots. Patient states posterior shoulder pain radiating down arm. Exam positive for posterior shoulder tenderness on palpation. Positive for pain on range of motion of shoulder. Vascular motor neuro exam intact. Patient denies any neck pain. Patient requesting MRI of shoulder informed this does not happen in ED. patient educated on outpatient MRI. CT scan of shoulder ordered. Medical Decision Making Medical Decision Making MDM Narrative: 44-year-old male presents to ED for right shoulder pain worse on movement since fall. Patient denies any new trauma, fever, chills, headache, diziziness, neck pain, headache, swelling, redness, or paralysis. Patient was requesting MRI. Patient informed MMI can not be done in the ED. history physical exam does not indicate upper extremity DVT, compartment syndrome, cellulitis, osteomyelitis, necrotizing fasciitis, dislocation, lymphangitis or arterial occlusion. CT of the shoulder negative for fracture. Patient informed to follow up with primary care and orthopedic for earlier MRI. Patient will be discharged with pain medication. Not suspecting carotid dissection, aortic dissection, abdominal aortic aneurysm. Patient explained worrisome signs and informed to return to the ED immediately. Differential Diagnosis Differential Diagnoses: The differential diagnosis associated with the presentation includes (fracture, contusion, rotatro cuff injury) Admission/Observation Consideration of admission/observation: Escalation of care including admission/observation considered Independent Interpretation I performed an independent interpretation of an: CT Scan Radiology Impression Discussion of test interpretation with radiology: I have reviewed the radiologist's reading. Independent Historian Clinical information obtained from an independent historian. History obtained from or confirmed by: Other Prescription Management I considered prescription management with: Pain Medication Discharge Plan Discharge Clinical Impression: Shoulder pain, right, Contusion Patient Disposition: Home, Self-Care Instructions: Shoulder Pain (ED), Bone Bruise (ED) Additional Instructions: Shoulder CT scan came back normal. Recommend follow-up with your primary care provider so he can order MRI of the shoulder. Return to the ED immediately for any swelling, redness, bluish black discoloration, red streaks, severe pain, paralysis of extremity, numbness/tingling, or any other concerning symptoms. Continue taking Motrin and cyclobenzaprine as you were prescribed. CT SHOULDER WITHOUT CONTRAST, RIGHT CLINICAL INFORMATION: Fall, rule out fracture. COMPARISON: Right shoulder plain films 10/25/2024. TECHNIQUE: Spiral CT imaging of the right shoulder performed in axial plane without IV contrast. Multiplanar reformatted images constructed from the axial data set. This CT examination was performed using dose optimization techniques as appropriate, variously including the following: *Automated exposure control *Adjustment of mA and/or kV according to patient size (this includes techniques or standardized protocols for targeted exams where dose is matched to indication/reason for exam; i.e. extremities or head) *Use of iterative reconstruction technique FINDINGS: No fracture, dislocation, or suspicious bone lesion. Normal bone mineralization. Intact clavicle. Intact scapula. Intact proximal humerus. Normal alignment. Glenohumeral joint space is normal. AC joint is normal and intact. No significant arthropathy. There is a type II acromion. The subacromial space is preserved. No significant joint effusion. The imaged musculature of the right shoulder girdle is normal in CT appearance. No hematoma. Unremarkable appearing neurovascular bundle. Imaged right lung is clear. The imaged ribs on the right are intact. CT/CT shoulder RT wo IV con IMPRESSION: 1. No fracture or dislocation of the right shoulder. 2. The imaged soft tissues and shoulder girdle musculature appear normal. Electronically signed by: Lance Adkins MD 10/28/2024 12:55 PM [facility] Dictated By: Lance Adkins MD Signed By: <Electronically signed by Lance Adkins MD in OV> 10/28/24 1255 Prescriptions: New prednisone 20 mg tablet 40 mg PO DAILY 5 Days Qty: 10 0RF No Action atorvastatin 20 mg tablet 20 mg PO BEDTIME 90 Days Qty: 90 1RF ibuprofen 600 mg tablet 600 mg PO Q6H PRN (Reason: pain) Qty: 14 0RF cyclobenzaprine 10 mg tablet 10 mg PO TID PRN (Reason: muscle spasm) Qty: 14 0RF nicotine 14 mg/24 hr patch 24 hour 1 patch TRANSDERMAL Q24H Qty: 30 0RF ferrous sulfate 325 mg (65 mg iron) tablet 325 mg PO DAILY hydrocortisone 2.5 % cream with perineal applicator 1 appl [place] BID-QID PRN (Reason: hemorrhoids) 14 Days Qty: 30 1RF cholecalciferol (vitamin D3) 50 mcg (2,000 unit) capsule 50 mcg PO DAILY Qty: 90 3RF cyanocobalamin (vitamin B-12) [Vitamin B-12] 500 mcg tablet 500 mcg PO DAILY 90 Days Qty: 90 1RF albuterol sulfate [Ventolin HFA] 90 mcg/actuation HFA aerosol inhaler 90 mcg inhalation DAILY 30 Days Qty: 18 1RF nicotine 21 mg/24 hr patch 24 hour 1 patch transdermal DAILY 28 Days Qty: 28 0RF citalopram 10 mg tablet 10 mg PO DAILY 90 Days Qty: 90 1RF doxycycline hyclate 100 mg capsule 100 mg PO BID Qty: 14 0RF fluticasone furoate-vilanterol [Breo Ellipta] 100-25 mcg/dose blister with device 1 inh inhalation DAILY Qty: 60 3RF Referrals: [facility] [Provider Group] (Right shoulder pain after fall. Need MRI) Savannah Hobbs MD [Primary Care Provider] - (Right shoulder pain after fall. Needs MRI) Stand Alone Forms: Work/School Release Discharge Date/Time: 10/28/24 14:11 Print Language: Prydeinig
[2024-10-28 14:02] VITALS: BP 143/94; PULSE 67
== END 2024-10-28 14:11 | disposition home or self-care (01) ==
PROVIDERS: Emergency Provider Emergency Medicine; PCP Internal Medicine
DX: S40.011A Contusion of right shoulder, initial encounter (principal); W00.0XXA Fall on same level due to ice and snow, initial encounter; M25.511 Pain in right shoulder; Y93.01 Activity, walking, marching and hiking; Y92.410 Unspecified street and highway as the place of occurrence of the external cause; Y99.9 Unspecified external cause status
CPT/HCPCS: 73200; 99282; 99284

== ENCOUNTER → 2024-10-28 12:02 | Outpatient (BNV) | payer OTHER, SELFPAY | PROVIDERS: PCP Internal Medicine; Visit Provider Radiology Diagnostic Radiology | DX: M25.511 Pain in right shoulder (principal) | CPT/HCPCS: 73200 ==

== ENCOUNTER 2024-11-01 14:14 | Outpatient (AMB) | payer OTHER, SELFPAY ==
--- NOTE | 2024-11-01 14:26 | MHC.PC.OV ---
Vital Signs 11/01/24 14:27 11/01/24 14:50 Height 5 ft 9 in Weight 188 lb 2 oz BMI 27.8 BP 140/100 H 148/96 H Blood Pressure Location Lt brachial Lt brachial Position Sitting Sitting Pulse 84 Pulse Source Pulse Oximeter Temp 97.3 F Temp Source Temporal Artery Scan Pulse Oximetry (%) 94 Oxygen Delivery Method Room Air Intake Visit Reasons: ER Visit Follow-up Shoulder pain Intake Note: Patient is here to follow-up after a visit the emergency department at [facility] on 10/25, 10/28. Recreational Sports Director Required: No Maple Syrup Maker: Not Required per policy Accompanied by: Self / Same As Patient Allergies varenicline [From Chantix] Adverse Reaction (Intermediate, Verified 11/01/24 14:33) vivid dreams Medication List - Last Reconciled 11/01/24 by Tran Lewis PA-C atorvastatin 20 mg PO BEDTIME 90 days cholecalciferol (vitamin D3) 50 mcg PO DAILY citalopram 10 mg PO DAILY 90 days cyanocobalamin (vitamin B-12) (Vitamin B-12) 500 mcg PO DAILY 90 days doxycycline hyclate 100 mg PO BID ferrous sulfate 325 mg PO DAILY fluticasone furoate-vilanterol 100-25 mcg/dose (Breo Ellipta) 1 inh inhalation DAILY hydrocortisone 2.5% 1 appl [place] BID-QID PRN 2 weeks nicotine 1 patch transdermal Q24H nicotine 1 patch transdermal DAILY 28 days Ventolin HFA 90 mcg/actuation (albuterol sulfate) 90 mcg inhalation DAILY 30 days NS Tobacco use date assessed: 11/01/24 Dental Screening Dental Screen Date: 09/08/24 HPI ER Visit Follow-up Shoulder pain HPI Details 44-year-old male with past medical history of tobacco abuse, chronic diarrhea, cervical radiculopathy, COPD, generalized anxiety disorder, depression, asthma last seen 09/2024 coming in for follow up.? In review of the notes, patient was seen in [facility] ED 10/28/[address] pain shoulder CT scan came back negative patient was given prednisone and discharged home. The patient is a 44-year-old male presenting with persistent shoulder pain initiated by a fall. Diagnostic imaging was negative for acute injuries, and medications provided were cyclobenzaprine and an unspecified pain medication, which offered insufficient pain relief. The pain's nature suggests possible shoulder impingement or rotator cuff issues. 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 Previous medical history includes knee surgery, ongoing management of iron deficiency anemia, repeated surgeries for hemorrhoids, and anxiety, with the latter potentially contributing to high blood pressure readings observed during times of pain. [facility] Medical History Sleep disturbance, unspecified Third degree malagon of multiple sites Right upper quadrant pain Chronic diarrhea Left lower quadrant pain Bleeding hemorrhoids Encounter for smoking cessation counseling Surgical History Hx of endoscopy Hx of arthroscopy of knee (~05/2023) Hx of colonoscopy H/O hemorrhoidectomy (03/19/22) Family History Unknown Diabetes Father Colon cancer, Onset Age: 62 Mother Depression with anxiety Social History Housing: Apartment Are you a primary hospice care transitions coordinator to a significant other at home: No Do you presently have visiting nurse or other home services: No Alcohol intake: current Alcohol intake frequency: does not drink Alcohol type: beer Patient Tobacco Use Status: Former Tobacco user Tobacco use type: Cigarette Cigarettes Per Day: 10 Years Smoked: quit 1 day ago/ using patches. e-Cigarette/Vaping Use: Never Used Second Hand Smoke Exposure: Yes Substance Use Type: Marijuana service: No Current occupational status: employed Current occupation: [employer] Current occupational exposures/hazards: No Cognitive needs: No Hearing needs: No Vision needs: Yes Questionnaire Thrive Questionnaire Date Thrive assessed: 09/08/24 I am a: Patient What is your living situation today?: I choose not to answer this question Within the past 12 months, did the food you bought not last and you didn't have the money to get more?: I choose not to answer this question Within the past 12 months, did you worry whether your food would run out before you got money to buy more?: I choose not to answer this question Do you have trouble paying for medicines?: I choose not to answer this question Do you have trouble getting transportation to medical appointments?: I choose not to answer this question Do you have trouble paying your heating and electricity bill?: I choose not to answer this question Do you have trouble taking care of your child, family member or friend?: I choose not to answer this question Do you have trouble with day-to-day activities such as bathing, preparing meals, shopping, managing finances, etc.?: I choose not to answer this question Are you currently unemployed and looking for a job?: I choose not to answer this question Are you interested in more education?: I choose not to answer this question Please select the resources that you would like help with: None Currently or been in a relationship where the following occur: I choose not to answer THRIVE Score: 0 TOLU-7 AMB Questionnaire TOLU-7 Date TOLU - 7 assessed: 09/08/24 Source: Developed by Drs. Flynn Rand, Alia Caldwell, Rob Clark and colleagues, with an educational michael from [employer]. Review of Systems Const Denies body aches, Denies chills, Denies fever(s), Denies headache(s) and Denies poor appetite Eyes Reports no additional complaints ENT Denies dizziness and Denies headache(s) Card Denies chest pain, Denies lightheadedness and Denies dyspnea Resp Denies dyspnea GI Reports no additional complaints Reports no additional complaints Musc Details: right shoulder pain Reports no additional complaints and Denies abnormal gait Skin/Breast Reports system reviewed and no additional complaints, except as documented Neuro Denies abnormal gait, Denies dizziness and Denies headache(s) Psych Reports no additional complaints Physical exam (Primary Care) Tobacco/Smoking Status: Tobacco use Status Tobacco use date assessed 09/08/24 09/08/24 08:57 Patient Tobacco Use Status Former Tobacco user 10/26/24 00:42 Tobacco use type Cigarette 09/21/24 09:43 e-Cigarette/Vaping Use Never Used 09/21/24 09:43 Thrive Assessment: Date of Thrive Assessment Date Thrive assessed 09/08/24 09/08/24 08:57 Currently or been in a relationship where the following occur: I choose not to answer Const General: cooperative, healthy appearing, comfortable and no acute distress Orientation/consciousness: patient oriented x3 HENMT Head: Yes normocephalic Ears: hearing grossly normal bilaterally General nose exam: Normal external nose present Eyes General: appearance normal, both eyes and all related structures Conjunctivae: conjunctivae normal Neck Neck: Yes full ROM and Yes no lymphadenopathy Resp Effort & Inspection: normal respiratory effort Auscultation: clear to auscultation bilaterally, no crackles, no rales, no rhonchi and no wheezes Cardio Rate: regular rate Rhythm: regular rhythm Skin General skin exam: no rashes or lesions noted Neuro General: patient oriented x3 Gait exam (Neuro): Normal gait present Extrem Other: pain to palpation over entire left shoulder. Pain with internal roation, extension and flexion of the right shoulder General: Yes normal to inspection, Yes full ROM and No edema Psych Affect: normal affect Attitude: cooperative Insight: Good insight present (Psych) Judgement: Good judgement present (Psych) Coding Level of Care Code Est Pt Level 3 (12117) Diagnoses Shoulder pain, right M25.511 Elevated blood pressure reading without diagnosis of hypertension R03.0 Assessment & Plan Assessment & Plan (1) Shoulder pain, right: Code(s): M25.511 - Pain in right shoulder Category: Medical Plan: Meloxicam and muscle relaxants are prescribed for shoulder pain management with a referral for physical therapy. An orthopedic evaluation is advised, especially if physical therapy proves inadequate. Scheduled follow-up next week to reassess the patient's current situation and adjust the care plan accordingly for effective management. (2) Elevated blood pressure reading without diagnosis of hypertension: Code(s): R03.0 - Elevated blood-pressure reading, without diagnosis of hypertension Category: Medical Plan: Blood pressure elevated in the office today he attributes this to pain. Avoid salt intake and encourage healthy diet and regular exercise. Blood pressure monitoring over the following two weeks is advised to assess if pain-related elevations persist. Plan This note was constructed using voice recognition software. While every effort has been made to ensure accuracy and nursing unit clerk, still areas may have been included sometimes these areas may affect the content or meeting of the given symptoms. Total time spent caring for the patient today was 20 minutes. This includes time spent before the visit reviewing the chart, time spent during the visit, and time spent after the visit and documentation. Patient was informed and verbally consented to the use of an ambient scribe for clinic note documentation during this visit. Orders: Orders PT Evaluation and Treatment Today M25.511 - Pain in right shoulder Referrals Orthopedics Referral M25.511 - Pain in right shoulder Medications: New meloxicam 15 mg PO DAILY 20 tabs 0RF Refilled cyclobenzaprine 10 mg PO TID PRN 30 tabs 0RF muscle spasm Discontinued doxycycline hyclate Discontinued Reason: Patient no longer taking 100 mg PO BID 14 caps 0RF
[2024-11-01 14:27] VITALS: BP 140/100; PULSE 84; TEMP 36.3; O2SAT 94; BMI 27.8
[2024-11-01 14:50] VITALS: BP 148/96
== END 2024-11-01 15:00 | disposition home or self-care (01) ==
PROVIDERS: PCP Internal Medicine
DX: M25.511 Pain in right shoulder (principal); R03.0 Elevated blood-pressure reading, without diagnosis of hypertension

== ENCOUNTER → 2024-11-01 14:14 | Outpatient (BNVA) | payer OTHER, SELFPAY | PROVIDERS: PCP Internal Medicine | DX: M25.511 Pain in right shoulder (principal); R03.0 Elevated blood-pressure reading, without diagnosis of hypertension | CPT/HCPCS: 99212 ==

== ENCOUNTER 2024-11-02 08:42 | Outpatient (REF) | payer OTHER, SELFPAY ==
--- NOTE | 2024-11-02 08:46 | PFT_ITS ---
Indication: Asthma Spirometry [FEV1 to FVC 65%; FEV1 3.75 L; FVC 5.78 L. No significant response to bronchodilators noted.] Lung Volumes [Total capacity 107% predicted; residual volume 94% predicted] Diffusion Capacity [DLCO 105% predicted] Comparisons [None] Interpretation [There is an obstructive ventilatory defect consistent mild COPD. No significant response to bronchodilators noted. Lung volumes and diffusing capacity within normal limits. Clinical correlation warranted.] MTDD
[2024-11-02 09:31] VITALS: PULSE 88
== END 2024-11-02 08:43 | disposition home or self-care (01) ==
LOC: HO.RESP 08:42
PROVIDERS: PCP Internal Medicine; Visit Provider Nurse Practitioner Family
DX: J45.909 Unspecified asthma, uncomplicated (principal)
CPT/HCPCS: 94010; 94640; 94727; 94729

== ENCOUNTER → 2024-11-02 08:46 | Outpatient (BNV) | payer OTHER, SELFPAY | PROVIDERS: PCP Internal Medicine; Visit Provider Hospitalist | DX: J45.909 Unspecified asthma, uncomplicated (principal) | CPT/HCPCS: 94060; 94727; 94729 ==

== ENCOUNTER 2024-11-10 08:31 | Outpatient (AMB) | payer OTHER, SELFPAY ==
[2024-11-10 08:38] VITALS: BP 136/94; PULSE 82; RESP 20; TEMP 36.3; O2SAT 95; BMI 27.2
--- NOTE | 2024-11-10 08:38 | A.OFFPC_ITS ---
Vital Signs 11/10/24 08:38 Height 5 ft 9 in Weight 184 lb 3.2 oz BMI 27.2 BP 136/94 H Blood Pressure Location Lt brachial Position Sitting Respiration 20 Pulse 82 Pulse Source Pulse Oximeter Temp 97.3 F Temp Source Temporal Artery Scan Pulse Oximetry (%) 95 Oxygen Delivery Method Room Air Intake Visit Reasons: f/u shoulder pain Fashion Illustrator Required: No Accompanied by: Self / Same As Patient Allergies varenicline [From Chantix] Adverse Reaction (Intermediate, Verified 11/10/24 09:12) vivid dreams Medication List - Last Reconciled 11/10/24 by Tran Lewis PA-C atorvastatin 20 mg PO BEDTIME 90 days cholecalciferol (vitamin D3) 50 mcg PO DAILY citalopram 10 mg PO DAILY 90 days cyanocobalamin (vitamin B-12) (Vitamin B-12) 500 mcg PO DAILY 90 days cyclobenzaprine 10 mg PO TID PRN ferrous sulfate 325 mg PO DAILY fluticasone furoate-vilanterol 100-25 mcg/dose (Breo Ellipta) 1 inh inhalation DAILY hydrocortisone 2.5% 1 appl [place] BID-QID PRN 2 weeks meloxicam 15 mg PO DAILY nicotine 1 patch transdermal Q24H nicotine 1 patch transdermal DAILY 28 days Ventolin HFA 90 mcg/actuation (albuterol sulfate) 90 mcg inhalation DAILY 30 days NS Tobacco use date assessed: 11/10/24 Dental Screening Dental Screen Date: 11/10/24 Did you have a dental visit in the last 12 months?: Yes Did you have a dental problem in the last 6 months where you did not have access to dental care?: No Was dental information given to patient?: Patient has dentist HPI f/u shoulder pain HPI Details 44-year-old male with past medical histo ry of tobacco abuse, chronic diarrhea, cervical radiculopathy, COPD, anxiety disorder, depression and asthma last seen 10/2024 coming follow up on shoulder pain. Presenting with right shoulder pain. 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 Radiating pain extends from the shoulder to the elbow and wrist, coupled with tingling sensations in the fingers on occasion. Nhzr-rwj-onjcasn medications like ibuprofen offered only temporary relief, and previous imaging such as a CT scan did not reveal any issues. Alternatives such as heat therapy and massage devices provide temporary comfort. The patient awaits an orthopedic evaluation to gain further insight and appropriate treatment for potential musculoskeletal issues. [facility] Medical History Sleep disturbance, unspecified Third degree malagon of multiple sites Right upper quadrant pain Chronic diarrhea Left lower quadrant pain Bleeding hemorrhoids Encounter for smoking cessation counseling Surgical History Hx of endoscopy Hx of arthroscopy of knee (~05/2023) Hx of colonoscopy H/O hemorrhoidectomy (03/19/22) Family History Unknown Diabetes Father Colon cancer, Onset Age: 62 Mother Depression with anxiety Social History Housing: Apartment Are you a primary caregivers homecare to a significant other at home: No Do you presently have visiting nurse or other home services: No Alcohol intake: current Alcohol intake frequency: does not drink Alcohol type: beer Patient Tobacco Use Status: Current everyday Tobacco user Tobacco use type: Cigarette Cigarettes Per Day: 10 Years Smoked: quit 1 day ago/ using patches. e-Cigarette/Vaping Use: Never Used Second Hand Smoke Exposure: Yes Substance Use Type: Marijuana service: No Current occupational status: employed Current occupation: [employer] Current occupational exposures/hazards: No Cognitive needs: No Hearing needs: No Vision needs: Yes Questionnaire Thrive Questionnaire Date Thrive assessed: 11/10/24 I am a: Patient What is your living situation today?: I choose not to answer this question Within the past 12 months, did the food you bought not last and you didn't have the money to get more?: I choose not to answer this question Within the past 12 months, did you worry whether your food would run out before you got money to buy more?: I choose not to answer this question Do you have trouble paying for medicines?: I choose not to answer this question Do you have trouble getting transportation to medical appointments?: I choose not to answer this question Do you have trouble paying your heating and electricity bill?: I choose not to answer this question Do you have trouble taking care of your child, family member or friend?: I choose not to answer this question Do you have trouble with day-to-day activities such as bathing, preparing meals, shopping, managing finances, etc.?: I choose not to answer this question Are you currently unemployed and looking for a job?: I choose not to answer this question Are you interested in more education?: I choose not to answer this question Please select the resources that you would like help with: None Currently or been in a relationship where the following occur: I choose not to answer THRIVE Score: 0 TOLU-7 AMB Questionnaire TOLU-7 Date TOLU - 7 assessed: 09/08/24 Source: Developed by Drs. Flynn Rand, Alia Caldwell, Rob Clark and colleagues, with an educational michael from [employer]. Review of Systems Const Denies body aches, Denies chills, Denies fever(s) and Denies poor appetite Eyes Reports no additional complaints ENT Reports no additional complaints Card Denies chest pain, Denies lightheadedness and Denies dyspnea Resp Denies dyspnea GI Reports no additional complaints Reports no additional complaints Musc Reports as per HPI and Denies abnormal gait Skin/Breast Reports system reviewed and no additional complaints, except as documented Neuro Denies abnormal gait Psych Reports no additional complaints Physical exam (Primary Care) Vital Signs: Last Vital Signs Temp 97.3 F 11/10/24 08:38 Oxygen Delivery Method Room Air 11/10/24 08:38 BMI result Body Mass Index 27.2 Tobacco/Smoking Status: Tobacco use Status Tobacco use date assessed 11/01/24 11/01/24 14:28 Patient Tobacco Use Status Former Tobacco user 11/01/24 14:28 Tobacco use type Cigarette 11/01/24 14:28 e-Cigarette/Vaping Use Never Used 11/01/24 14:28 Thrive Assessment: Date of Thrive Assessment Date Thrive assessed 09/08/24 11/01/24 14:28 Currently or been in a relationship where the following occur: I choose not to answer Const General: cooperative, healthy appearing, comfortable and no acute distress Orientation/consciousness: patient oriented x3 HENMT Head: Yes normocephalic Ears: hearing grossly normal bilaterally General nose exam: Normal external nose present Eyes General: appearance normal, both eyes and all related structures Conjunctivae: conjunctivae normal Neck Neck: Yes full ROM and Yes no lymphadenopathy Resp Effort & Inspection: normal respiratory effort Auscultation: clear to auscultation bilaterally, no crackles, no rales, no rhonchi and no wheezes Cardio Rate: regular rate Rhythm: regular rhythm Skin General skin exam: no rashes or lesions noted Neuro General: patient oriented x3 Gait exam (Neuro): Normal gait present Extrem Other: Tenderness to palpation over entirety of right shoulder with intact upper extremity strength, sensation and pulses. General: Yes normal to inspection, Yes full ROM and No edema Psych Affect: normal affect Attitude: cooperative Insight: Good insight present (Psych) Judgement: Good judgement present (Psych) Coding Level of Care Code Est Pt Level 3 (54668) Diagnoses Shoulder pain, right M25.511 Elevated blood pressure reading without diagnosis of hypertension R03.0 Nicotine dependence, cigarettes, uncomplicated F17.210 Assessment & Plan Assessment & Plan (1) Shoulder pain, right: Code(s): M25.511 - Pain in right shoulder Category: Medical Plan: The management of the patient's right shoulder pain necessitates creating a short-term strategy to manage symptoms while awaiting more definitive orthopedic intervention. With current pharmacological approaches offering insufficient relief, alternative muscle relaxants may provide temporary reprieve. A multidisciplinary approach to this condition should include continued use of non-pharmacological measures, such as heat application and massage. The patient is advised to maintain contact with the orthopedics office to expedite an evaluation. Patient tells us he can not tolerate work and will likely need FMLA or short- term disability advised to reach out to his employer for further guidance. (2) Elevated blood pressure reading without diagnosis of hypertension: Code(s): R03.0 - Elevated blood-pressure reading, without diagnosis of hypertension Category: Medical Plan: Blood pressure mildly elevated in the office today advised to take blood pressures at home and follow up in 6 months with log of blood pressures. Avoid salt intake and encourage healthy diet and regular exercise. (3) Nicotine dependence, cigarettes, uncomplicated: Code(s): F17.210 - Nicotine dependence, cigarettes, uncomplicated Category: Medical Plan: Smoking cigarettes and the use of tobacco can be harmful. We discussed the importance of stopping and options to aid in smoking cessation. Continue to use nicotine patches as needed Plan This note was constructed using voice recognition software. While every effort has been made to ensure accuracy and airport location manager, still areas may have been included sometimes these areas may affect the content or meeting of the given symptoms. Total time spent caring for the patient today was 20 minutes. This includes time spent before the visit reviewing the chart, time spent during the visit, and time spent after the visit and documentation. Patient was informed and verbally consented to the use of an ambient scribe for clinic note documentation during this visit. Medications: New ferrous sulfate 325 mg PO DAILY 90 tabs 0RF Refilled cholecalciferol (vitamin D3) 50 mcg PO DAILY 90 caps 3RF R79.89 - Other specified abnormal findings of blood chemistry cyanocobalamin (vitamin B-12) (Vitamin B-12) 500 mcg PO DAILY 90 days 90 tabs 1RF nicotine 1 patch transdermal Q24H 30 ea 0RF
== END 2024-11-10 09:30 | disposition home or self-care (01) ==
LOC: HO.HMCH 08:32
PROVIDERS: PCP Internal Medicine
DX: M25.511 Pain in right shoulder (principal); R03.0 Elevated blood-pressure reading, without diagnosis of hypertension; F17.210 Nicotine dependence, cigarettes, uncomplicated

== ENCOUNTER → 2024-11-10 08:31 | Outpatient (BNVA) | payer OTHER, SELFPAY | PROVIDERS: PCP Internal Medicine | DX: M25.511 Pain in right shoulder (principal); R03.0 Elevated blood-pressure reading, without diagnosis of hypertension; F17.210 Nicotine dependence, cigarettes, uncomplicated; Z71.6 Tobacco abuse counseling | CPT/HCPCS: 99212 ==

== ENCOUNTER 2024-11-22 14:17 | Outpatient (AMB) | payer OTHER, SELFPAY ==
--- NOTE | 2024-11-22 14:29 | MHC.OFFVIS ---
Intake Visit Reasons: Newprob- Pain in right shoulder Intake Note: Skip is a 44 year old left hand dominant male who presents today for a follow up of his right shoulder pain. Patient states that his pain is ongoing and it is getting worse. He does feel his pain from his shoulder blade and it moves down through out his arm. Patient states that his pain is worse with movement. Having numbness in his fingers for about 2 months. Patient is interested in an injection and PT. Allergies varenicline [From Chantix] Adverse Reaction (Intermediate, Verified 11/22/24 14:32) vivid dreams HPI HPI Newprob- Pain in right shoulder: Details: Mr. Sage is a 44-year-old left-hand dominant male who presents to the office today for evaluation of left upper extremity pain, scapular pain as well as numbness and tingling in the right upper extremity and to all digits. He reports that the pain has been present for quite some time but a few weeks ago he slipped and fell on ice landing on 2 the right scapula and ever since then his pain has increased significantly and has remained constant. [facility] Medical History Sleep disturbance, unspecified Third degree malagon of multiple sites Right upper quadrant pain Chronic diarrhea Left lower quadrant pain Bleeding hemorrhoids Encounter for smoking cessation counseling Surgical History Hx of endoscopy Hx of arthroscopy of knee (~05/2023) Hx of colonoscopy H/O hemorrhoidectomy (03/19/22) Family History Unknown Diabetes Father Colon cancer, Onset Age: 62 Mother Depression with anxiety Social History Housing: Apartment Are you a primary manager medicare marketing to a significant other at home: No Do you presently have visiting nurse or other home services: No Alcohol intake: current Alcohol intake frequency: does not drink Alcohol type: beer Patient Tobacco Use Status: Current everyday Tobacco user Tobacco use type: Cigarette Cigarettes Per Day: 10 Years Smoked: quit 1 day ago/ using patches. e-Cigarette/Vaping Use: Never Used Second Hand Smoke Exposure: Yes Substance Use Type: Marijuana service: No Current occupational status: employed Current occupation: [employer] Current occupational exposures/hazards: No Cognitive needs: No Hearing needs: No Vision needs: Yes Review of Systems Const All systems reviewed & are unremarkable except as noted in HPI and below Physical Exam Const General: cooperative, healthy appearing and no acute distress Resp Effort & Inspection: normal respiratory effort and able to speak in complete sentences Cardio Rate: regular rate Peripheral pulses: Peripheral pulses 2+ throughout Skin Lesions: no lesions Rashes: no rashes Extrem Other: Right shoulder: Normal to inspection. No ecchymosis, erythema, or edema. Full shoulder ROM in all planes. Negative cross-body reach. Negative empty can. Negative drop arm. NVI. Patient does have pain that radiating from the neck to the shoulder with range of motion of his C-spine. Assessment & Plan Assessment & Plan (1) Myofascial pain: Code(s): M79.18 - Myalgia, other site Category: Medical (2) Cervical radiculopathy: Code(s): M54.12 - Radiculopathy, cervical region Category: Medical Plan Mr. Sage is a 44-year-old left-hand dominant male who presents to the office today for evaluation of left upper extremity pain, scapular pain as well as numbness and tingling in the right upper extremity and to all digits. He reports that the pain has been present for quite some time but a few weeks ago he slipped and fell on ice landing on 2 the right scapula and ever since then his pain has increased significantly and has remained constant. While in the office today, we discussed the role of physical therapy in which the patient is agreeable to attend. He will attend 6-8 weeks of physical therapy and follow up with Dr. Moody for continuation of care for his C-spine and myofascial pain. Follow up with Orthopedics will be p.r.n., sooner if needed. CT scan of the right shoulder from 10/28/19 IMPRESSION: 1. No fracture or dislocation of the right shoulder. 2. The imaged soft tissues and shoulder girdle musculature appear normal. X-rays of the right shoulder from 10/25/2024: IMPRESSION: 1. No acute findings Orders: Orders PT Evaluation and Treatment Today M54.12 - Radiculopathy, cervical region, M79.18 - Myalgia, other site Coding Level of Care Code Est Pt Level 3 (97328) Diagnoses Myofascial pain M79.18 Cervical radiculopathy M54.12
== END 2024-11-22 15:14 | disposition home or self-care (01) ==
LOC: HO.HOS 14:18
PROVIDERS: PCP Internal Medicine; Visit Provider Physician Assistant
DX: M79.18 Myalgia, other site (principal); M54.12 Radiculopathy, cervical region
CPT/HCPCS: 99213

== ENCOUNTER → 2024-11-22 14:17 | Outpatient (BNVA) | payer OTHER, SELFPAY | PROVIDERS: PCP Internal Medicine; Visit Provider Physician Assistant | DX: M79.18 Myalgia, other site (principal); M54.12 Radiculopathy, cervical region | CPT/HCPCS: 99212 ==

== ENCOUNTER 2024-11-23 13:49 | Outpatient (AMB) | payer OTHER, SELFPAY ==
[2024-11-23 13:55] VITALS: BP 130/76; PULSE 68; O2SAT 98; BMI 27.3
--- NOTE | 2024-11-23 13:55 | MHC.OFFVIS ---
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 Accompanied by: Self / Same As Patient Allergies varenicline [From Chantix] Adverse Reaction (Intermediate, Verified 11/23/24 14:00) vivid dreams Medication List - Last Reconciled 11/23/24 by Stacey Tinajero LPN atorvastatin 20 mg PO BEDTIME 90 days cholecalciferol (vitamin D3) 50 mcg PO DAILY citalopram 10 mg PO DAILY 90 days cyanocobalamin (vitamin B-12) (Vitamin B-12) 500 mcg PO DAILY 90 days ferrous sulfate 325 mg PO DAILY fluticasone furoate-vilanterol 100-25 mcg/dose (Breo Ellipta) 1 inh inhalation DAILY hydrocortisone 2.5% 1 appl [place] BID-QID PRN 2 weeks meloxicam 15 mg PO DAILY nicotine 1 patch transdermal DAILY 28 days nicotine 1 patch transdermal Q24H tizanidine 4 mg PO BEDTIME PRN Ventolin HFA 90 mcg/actuation (albuterol sulfate) 90 mcg inhalation DAILY 30 days NS HPI HPI COPD: Details: Skip is a pleasant 44-year-old male, current smoker, with a 20+ pack-year history, with underlying iron deficiency anemia and asthma since childhood. At the last visit he was treated with prednisone as well as doxycycline for bronchitic symptoms as well as increased Breo to 100 mcg. Unfortunately, he reports minimal change in symptoms and continues with dyspnea on moderate exertion, wheezing, chest tightness as well as productive cough with yellow to brown sputum. Since the last visit, he restarted smoking and using NRT with moderate effect. He continues to smoke 5 cigarettes per day. Today he presents to review PFT results. [facility] Medical History Sleep disturbance, unspecified Third degree malagon of multiple sites Right upper quadrant pain Chronic diarrhea Left lower quadrant pain Bleeding hemorrhoids Encounter for smoking cessation counseling Surgical History Hx of endoscopy Hx of arthroscopy of knee (~05/2023) Hx of colonoscopy H/O hemorrhoidectomy (03/19/22) Family History Unknown Diabetes Father Colon cancer, Onset Age: 62 Mother Depression with anxiety Social History (Updated 11/23/24 @ 14:03 by Stacey Tinajero LPN) Housing: Apartment Are you a primary life care planner to a significant other at home: No Do you presently have visiting nurse or other home services: No Alcohol intake: current Alcohol intake frequency: does not drink Alcohol type: beer Patient Tobacco Use Status: Current everyday Tobacco user Tobacco use type: Cigarette Cigarettes Per Day: 5 Years Smoked: quit 1 day ago/ using patches. e-Cigarette/Vaping Use: Never Used Second Hand Smoke Exposure: Yes Substance Use Type: Marijuana service: No Current occupational status: employed Current occupation: [employer] Current occupational exposures/hazards: No Cognitive needs: No Hearing needs: No Vision needs: Yes Review of Systems Const Denies chills, Denies excessive sweating, Denies fever(s), Denies headache(s) and Denies night sweats Eyes Denies dry eyes, Denies irritation and Denies itchy eyes ENT Reports Normal hearing present, Denies headache(s), Denies nasal congestion, Denies nasal discharge, Denies post nasal drip and Denies sore throat Card Denies chest pain, Denies chest pain at rest, Denies chest pain with activity, Denies claudication, Denies leg edema, Reports dyspnea on exertion, Denies orthopnea and Denies paroxysmal nocturnal dyspnea Resp Reports chest congestion, Reports cough, Denies excessive phlegm production, Denies pain on inspiration, Denies pain with cough, Reports dyspnea on exertion, Denies stridor and Reports wheezing Musc Denies myalgias Neuro Reports Normal hearing present and Denies headache(s) Endo Denies excessive sweating Randolph/Lymph Denies lymphadenopathy Aller/Immun Denies itchy eyes, Denies seasonal rhinorrhea and Reports wheezing Physical Exam Vital Signs: Last Vital Signs Pulse 68 11/23/24 13:55 BP 130/76 11/23/24 13:55 Pulse Ox 98 11/23/24 13:55 Oxygen Delivery Method Room Air 11/23/24 13:55 BMI result Body Mass Index 27.3 Const General: cooperative, healthy appearing, comfortable, no acute distress, well developed and alert Orientation/consciousness: patient oriented x3 Limitations: no limitations HEENT Head: Yes normal to inspection, Yes normocephalic and Yes atraumatic Ears: hearing grossly normal bilaterally and external ears normal Eyes General: appearance normal, both eyes and all related structures Eyelids: Yes eyelids normal Sclerae: sclerae normal EOM: EOMs intact bilaterally Neck Neck: Yes normal visual inspection and Yes no lymphadenopathy Lymphatic: no lymphadenopathy noted Chest Chest palpation & inspection: normal inspection of the chest Resp Other: moderate improvement with DuoNeb Effort & Inspection: normal respiratory effort, able to speak in complete sentences, no audible wheezes, Actively coughing, no stridor, not tachypneic, no tripod positioning and no use of accessory muscles Auscultation: rhonchi, wheezes and diminished lung sounds Cardio Jugular venous distension: no JVD Rate: regular rate Rhythm: regular rhythm Skin Other: warm, dry General skin exam: no rashes or lesions noted Neuro General: patient oriented x3 Cranial nerves: Yes Normal hearing present Cognition (Neuro): normal cognition Gait exam (Neuro): Normal gait present Extrem General: Yes normal to inspection, Yes capillary refill normal, Yes no clubbing, cyanosis or edema and Yes no pedal edema Psych Appearance: grossly normal and well kempt Speech and movement: Normal speech and movement present and Clear speech present Affect: normal affect Attitude: cooperative Thought process: Normal thought process present Thought content: Normal thought content present Insight: Good insight present (Psych) Judgement: Good judgement present (Psych) Office Procedures Nebulizer Treatment Nebulizer Treatment [id number]/[id number] RX initial, or Nebulizer Subsequent Treatment Office Meds ipratropium 0.5 mg-albuterol 3 mg (2.5 mg base)/3 mL nebulization soln Performing Provider: Keiry Owens NP Performing Location: [facility] Administered by: Stacey Tinajero LPN on 11/23/24 14:33 Dose Route Admin Location Dispensed Lot Number Expiration Date NDC 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 No significant response to bronchodilators noted. Lung volumes and diffusing capacity within normal limits. Will switch from Breo to Trelegy. Will also treat bronchitic symptoms with Augmentin as well as prednisone for exacerbation. Will send for RAST to assess for an allergic component. May need to consider biologics. Smoking cessation reviewed. Will send in nicorette to help with cravings, as patient is motivated to quit. All questions were answered and patient is in agreement plan. Will follow-up in 6-8 weeks or sooner if needed. Orders: Orders Immunoglobulin E Today Z91.09 - Other allergy status, other than to drugs and biological substances Resp Allergy Profile Region I Today Z91.09 - Other allergy status, other than to drugs and biological substances Complete Blood Count Auto Diff Today Z91.09 - Other allergy status, other than to drugs and biological substances AMB Nebulizer Treatment Today J45.909 - Unspecified asthma, uncomplicated Medications: New amoxicillin-pot clavulanate 875-125 mg 1 tab PO Q12H 20 tabs 0RF prednisone see taper instructions; 40 mg Daily x3 days, 30 mg daily x3 days, 20 mg daily x3 days, 10 mg daily x3 days 10 mg PO DIRECTED 30 tabs 0RF nicotine (polacrilex) (Nicorette) 2 mg buccal Q2H 100 ea 0RF xyfnctwqogj-udiljdvfp-ayxkaxfg 200-62.5-25 mcg (Trelegy Ellipta) 1 inh inhalation DAILY 60 ea 6RF Discontinued fluticasone furoate-vilanterol 100-25 mcg/dose (Breo Ellipta) Discontinued Reason: Patient Completed Course 1 inh inhalation DAILY 60 ea 3RF Coding Level of Care Code Est Pt Level 4 (77918) Diagnoses Asthma-COPD overlap syndrome J44.89 Nicotine dependence, cigarettes, uncomplicated F17.210 Cough R05.9 CPT Codes Nebulizer Treatment - Nebulizer Treatment, initial or subsequent: [id number]/MDI RX initial, or Nebulizer Subsequent Treatment ([id number])
== END 2024-11-23 14:40 | disposition home or self-care (01) ==
LOC: HO.HPSW 13:49
PROVIDERS: PCP Internal Medicine; Visit Provider Nurse Practitioner Family
DX: J44.89 Other specified chronic obstructive pulmonary disease (principal); F17.210 Nicotine dependence, cigarettes, uncomplicated; R05.9 Cough, unspecified; J45.909 Unspecified asthma, uncomplicated
CPT/HCPCS: 99214

== ENCOUNTER → 2024-11-23 13:49 | Outpatient (BNVA) | payer OTHER, SELFPAY | PROVIDERS: PCP Internal Medicine; Visit Provider Nurse Practitioner Family | DX: J44.89 Other specified chronic obstructive pulmonary disease (principal); R05.9 Cough, unspecified; F17.210 Nicotine dependence, cigarettes, uncomplicated | CPT/HCPCS: 94640; 99212 ==

== ENCOUNTER 2024-11-24 11:43 | Outpatient (REF) | payer OTHER, SELFPAY ==
[2024-11-24 11:56] LABS: MANUAL DIFF FLAG NO
[2024-11-24 12:08] LABS: Basophils Absolute Auto 0.1 X10*3/uL (0.0-0.2); Eosinophils Absolute Auto 0.1 X10*3/uL (0.0-0.4); Hemoglobin 15.7 g/dl (14.0-18.0); Imm Gran Abs Auto 0.01 X10*3/uL (0.00-0.03); Imm Gran Pct Auto 0.2 % (0.0-0.4); Lymphocytes Absolute Auto 1.1 X10*3/uL (1.2-4.9); Lymphocytes Percent Auto 17.1 % (20-40); Mean Corpuscular HGB Conc 34.9 g/dl (31.0-36.0); Mean Corpuscular Hemoglobin 33.1 pg (27.0-33.0); Mean Corpuscular Volume 94.9 fL (80.0-98.0); Monocytes Absolute Auto 0.9 X10*3/uL (0.1-1.2); Monocytes Percent Auto 14.4 % (2-11); Neutrophils Absolute Auto 4.1 x10*3/uL (2.0-8.3); Neutrophils Percent Auto 66.3 % (45-73); Platelet Count 280 X10*3/uL (160-400); Red Blood Count 4.74 X10*6/uL (4.60-5.80); Red Cell Distribution Width 14.2 % (11.0-16.0); White Blood Count 6.2 X10*3/uL (4.8-10.8)
[2024-12-05 17:09] LABS: Class Alternaria alternata 0; Class Aspergillus fumigatus 0; Class Bermuda Grass 0; Class Birch 0; Class Cat Dander 0; Class Cladosporium herbarum 0; Class Cockroach 0; Class Common Ragweed 0; Class Cottonwood 0; Class Derm. pterony 0; Class Dermatophagoides farinae 0; Class Dog Dander 0; Class Elm 0; Class Maple Box Elder 0; Class Mountain Cedar 0; Class Mouse Urine Protein 0; Class Mugwort 0; Class Oak 0; Class Penicillium crysogenum 0; Class Rough Pigweed 0; Class Sheep Sorrel 0; Class Sycamore 0; Class Timothy Grass 0; Class Walnut Tree 0; Class White Ash 0; Class White Mulberry 0; D001 IgE D pteronyssinus <0.10 kU/L; D002 - IgE D farinae <0.10 kU/L; E001 - IgE Cat Dander <0.10 kU/L; E005 - IgE Dog Dander <0.10 kU/L; E072-IgE Mouse Urine <0.10 kU/L; G002 IgE Bermuda Grass <0.10 kU/L; G006 - IgE Timothy Grass <0.10 kU/L; I006-IgE Cockroach, German <0.10 kU/L; Immunoglobulin E 15 kU/L (<OR=114); M001 IgE Penicillium chrysogen <0.10 kU/L; M002 - IgE Cladosporium herbar <0.10 kU/L; M003 - IgE Aspergillus fumigat <0.10 kU/L; M006 - IgE Alternaria alternat <0.10 kU/L; T001 IgE Maple/Box Elder <0.10 kU/L; T003 IgE Common Silver Birch <0.10 kU/L; T006 - IgE Cedar, Mountain <0.10 kU/L; T007 - IgE Oak, White <0.10 kU/L; T008 IgE Elm, American <0.10 kU/L; T010 - IgE Walnut <0.10 kU/L; T011 - IgE Maple Leaf Sycamore <0.10 kU/L; T014 - IgE Cottonwood <0.10 kU/L; T015 - IgE Ash, White <0.10 kU/L; T070 - IgE White Mulberry <0.10 kU/L; W001 - IgE Ragweed, Short <0.10 kU/L; W006 - IgE Mugwort <0.10 kU/L; W014 IgE Pigweed, Common <0.10 kU/L; W018 IgE Sheep Sorrel <0.10 kU/L
== END 2024-11-24 11:44 | disposition home or self-care (01) ==
LOC: HO.LAB 11:43
PROVIDERS: PCP Internal Medicine; Visit Provider Nurse Practitioner Family
DX: Z91.09 Other allergy status, other than to drugs and biological substances (principal)
CPT/HCPCS: 36415; 82785; 85025; 86003

== ENCOUNTER 2024-12-06 14:42 | Outpatient (AMB) | payer OTHER, SELFPAY ==
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
== END 2024-12-06 15:44 | disposition home or self-care (01) ==
LOC: HO.HOP 14:42
PROVIDERS: PCP Internal Medicine; Visit Provider Clinical Nurse Specialist Psychiatric/Mental Health
DX: F32.0 Major depressive disorder, single episode, mild (principal); F41.1 Generalized anxiety disorder
CPT/HCPCS: 90792

== ENCOUNTER → 2024-12-06 14:42 | Outpatient (BNVA) | payer OTHER, SELFPAY | PROVIDERS: PCP Internal Medicine; Visit Provider Clinical Nurse Specialist Psychiatric/Mental Health | DX: F32.0 Major depressive disorder, single episode, mild (principal); F41.1 Generalized anxiety disorder | CPT/HCPCS: 90792 ==

== ENCOUNTER 2024-12-22 08:28 | Outpatient (AMB) | payer OTHER, SELFPAY ==
--- NOTE | 2024-12-22 08:57 | A.OFFPC_ITS ---
Vital Signs 3 12/22/24 08:59 Height 5 ft 9 in Weight 181 lb 4 oz BMI 26.8 BP 130/70 Blood Pressure Location Lt brachial Position Sitting Pulse 71 Pulse Source Pulse Oximeter Temp 97.3 F Temp Source Temporal Artery Scan Pulse Oximetry (%) 98 Oxygen Delivery Method Room Air Intake Visit Reasons: 6 Week F/U Intake Note: Patient is here to follow up on Elevated bp, Rt Shoulder pain. Metal Moulder Required: No Jig Bore Operator: Not Required per policy Accompanied by: Self / Same As Patient Allergies varenicline [From Chantix] Adverse Reaction (Intermediate, Verified 12/22/24 09:18) vivid dreams Medication List - Last Reconciled 12/22/24 by Tran Lewis PA-C atorvastatin 20 mg PO BEDTIME 90 days bupropion HCl XL (Wellbutrin XL) 150 mg PO QAM cholecalciferol (vitamin D3) 50 mcg PO DAILY citalopram (Celexa) 20 mg PO DAILY cyanocobalamin (vitamin B-12) (Vitamin B-12) 500 mcg PO DAILY 90 days ferrous sulfate 325 mg PO DAILY fluticasone furoate-vilanterol 200-25 mcg/dose (Breo Ellipta) 1 inh inhalation DAILY hydrocortisone 2.5% 1 appl [place] BID-QID PRN 2 weeks meloxicam 15 mg PO DAILY nicotine 1 patch transdermal DAILY 28 days nicotine 1 patch transdermal Q24H nicotine (polacrilex) (Nicorette) 2 mg buccal Q2H tizanidine 4 mg PO BEDTIME PRN umeclidinium 62.5 mcg/actuation (Incruse Ellipta) 1 inh inhalation DAILY Ventolin HFA 90 mcg/actuation (albuterol sulfate) 90 mcg inhalation DAILY 30 days NS Tobacco use date assessed: 12/22/24 Dental Screening Dental Screen Date: 11/10/24 HPI 6 Week F/U 2 HPI0 Details 44-year-old male with past medical histo ry of tobacco abuse, chronic diarrhea, cervical radiculopathy, COPD, anxiety disorder, depression and asthma last seen 10/2024 coming follow up. In review of the notes, patient was seen by outpatient psych clinic citalopram was increased to 20 mg and started on Wellbutrin. Seen by pulmonology 10/2024 plan to switch Breo to Trelegy and treat bronchitic symptoms with Augmentin and prednisone. Seen by orthopedics 10/2024 for shoulder pain recommend physical therapy and follow up as needed. Presenting with rib contusion and pain management. He experienced a fall last , during which he bruised three ribs. The fall was due to misjudging the railing with an already injured shoulder, compounded by wearing socks, leading to a slip on the stairs. Though X-rays confirmed no fractures he continues to endure significant pain. This pain has led to postponement of therapy sessions, initially scheduled shortly after the fall. The pain is aggravated by deep inspirations and coughing, causing pressure sensations in the lungs. The patient's smoking habits have been reduced to four to five cigarettes a day, in part by using nicotine alternatives. Emphasis on rib pain management using muscle relaxants is ongoing, as past supplies have been insufficient. [facility] Medical History Sleep disturbance, unspecified Third degree malagon of multiple sites Right upper quadrant pain Chronic diarrhea Left lower quadrant pain Bleeding hemorrhoids Encounter for smoking cessation counseling Surgical History Hx of endoscopy Hx of arthroscopy of knee (~05/2023) Hx of colonoscopy H/O hemorrhoidectomy (03/19/22) Family History Unknown Diabetes Father Colon cancer, Onset Age: 62 Mother Depression with anxiety Social History Housing: Apartment Are you a primary care associate to a significant other at home: No Do you presently have visiting nurse or other home services: No Alcohol intake: current Alcohol intake frequency: does not drink Alcohol type: beer Patient Tobacco Use Status: Current everyday Tobacco user Tobacco use type: Cigarette Cigarette Packs Per Day: 0.5 Cigarettes Per Day: 5 Years Smoked: quit 1 day ago/ using patches. e-Cigarette/Vaping Use: Never Used Second Hand Smoke Exposure: Yes Substance Use Type: Marijuana service: No Current occupational status: employed Current occupation: [employer] Current occupational exposures/hazards: No Cognitive needs: No Hearing needs: No Vision needs: Yes Questionnaire Thrive Questionnaire Date Thrive assessed: 09/08/24 I am a: Patient What is your living situation today?: I choose not to answer this question Within the past 12 months, did the food you bought not last and you didn't have the money to get more?: I choose not to answer this question Within the past 12 months, did you worry whether your food would run out before you got money to buy more?: I choose not to answer this question Do you have trouble paying for medicines?: I choose not to answer this question Do you have trouble getting transportation to medical appointments?: I choose not to answer this question Do you have trouble paying your heating and electricity bill?: I choose not to answer this question Do you have trouble taking care of your child, family member or friend?: I choose not to answer this question Do you have trouble with day-to-day activities such as bathing, preparing meals, shopping, managing finances, etc.?: I choose not to answer this question Are you currently unemployed and looking for a job?: I choose not to answer this question Are you interested in more education?: I choose not to answer this question Please select the resources that you would like help with: None Currently or been in a relationship where the following occur: I choose not to answer THRIVE Score: 0 TOLU-7 AMB Questionnaire TOLU-7 Date TOLU - 7 assessed: 09/08/24 Source: Developed by Drs. Flynn Rand, Alia Caldwell, Rob Clark and colleagues, with an educational michael from [employer]. Review of Systems Const Denies fever(s), Denies headache(s) and Denies poor appetite Eyes Reports no additional complaints ENT Denies dizziness and Denies headache(s) Card Denies chest pain, Denies syncope, Denies lightheadedness and Denies dyspnea Resp Denies dyspnea GI Reports constipation Reports no additional complaints Musc Reports as per HPI Skin/Breast Reports system reviewed and no additional complaints, except as documented Neuro Denies dizziness, Denies syncope and Denies headache(s) Psych Reports no additional complaints Physical exam (Primary Care) Vital Signs: Last Vital Signs Temp 97.3 F 12/22/24 08:59 Pulse 71 12/22/24 08:59 BP 130/70 12/22/24 08:59 Pulse Ox 98 12/22/24 08:59 Oxygen Delivery Method Room Air 12/22/24 08:59 BMI result Body Mass Index 26.8 Tobacco/Smoking Status: Tobacco use Status Tobacco use date assessed 12/22/24 12/22/24 09:04 Patient Tobacco Use Status Current everyday Tobacco 12/22/24 08:58 Tobacco use type Cigarette 12/22/24 08:58 e-Cigarette/Vaping Use Never Used 12/22/24 08:58 Thrive Assessment: Date of Thrive Assessment Date Thrive assessed 09/08/24 12/22/24 08:58 Currently or been in a relationship where the following occur: I choose not to answer Const General: cooperative, healthy appearing, comfortable and no acute distress Orientation/consciousness: patient oriented x3 HENMT Head: Yes normocephalic Ears: hearing grossly normal bilaterally General nose exam: Normal external nose present Eyes General: appearance normal, both eyes and all related structures Conjunctivae: conjunctivae normal Neck Neck: Yes full ROM and Yes no lymphadenopathy Chest Chest/axillae images: 2 1. tenderness to palpation without bruising or skin changes Resp Effort & Inspection: normal respiratory effort Auscultation: clear to auscultation bilaterally, no crackles, no rales, no rhonchi and wheezes right upper Cardio Rate: regular rate Rhythm: regular rhythm Skin General skin exam: no rashes or lesions noted Neuro General: patient oriented x3 Gait exam (Neuro): Normal gait present Extrem General: Yes normal to inspection, Yes full ROM and No edema Psych Affect: normal affect Attitude: cooperative Insight: Good insight present (Psych) Judgement: Good judgement present (Psych) Coding Level of Care Code Est Pt Level 3 (02838) Diagnoses Asthma-COPD overlap syndrome J44.89 Myofascial pain M79.18 Shoulder pain, right M25.511 Elevated blood pressure reading without diagnosis of hypertension R03.0 Nicotine dependence, cigarettes, uncomplicated F17.210 Rib pain R07.81 Assessment & Plan Assessment & Plan (1) Asthma-COPD overlap syndrome: Code(s): J44.89 - Other specified chronic obstructive pulmonary disease Category: Medical Plan: Patient was recently seen by pulmonology [facility]maxim[facility]ogy switch to [facility]. Strongly advised smoking cessation. (2) Myofascial pain: Code(s): M79.18 - Myalgia, other site Category: Medical Plan: Continue to follow with orthopedics for management of myofascial pain. (3) Shoulder pain, right: Code(s): M25.511 - Pain in right shoulder Category: Medical Plan: Right shoulder pain currently being managed by orthopedics and has PT 01/10/2025 with ortho follow up afterwards. Continue to follow with ortho at this time. I did advise patient FMLA would only be continued if recommended by orthopedics. (4) Elevated blood pressure reading without diagnosis of hypertension: Code(s): R03.0 - Elevated blood-pressure reading, without diagnosis of hypertension Category: Medical Plan: Blood pressure normalized while in the office today. Avoid salt intake and encourage healthy diet and regular exercise. (5) Nicotine dependence, cigarettes, uncomplicated: Code(s): F17.210 - Nicotine dependence, cigarettes, uncomplicated Category: Medical Plan: Smoking cigarettes and the use of tobacco can be harmful. We discussed the importance of stopping and options to aid in smoking cessation. Continue to use nicotine patches as needed (6) Rib pain: Code(s): R07.81 - Pleurodynia Category: Medical Plan: Patient have right sided rib pain after a fall last week. He did go [place] [facility] [place] and had XR done at that time showing no acute fracture. He does have some tenderness on exam but no bruising or swelling. Continue to use heat/ice as well as tylenol and Meloxicam prn. Plan to obtain [facility] [place]. Plan I am adjusting the patient?s therapy for rib contusion by increasing the dose of Tizanidine to manage pain more effectively at bedtime. COPD management continues with changes made during a recent pulmonology consultation, with good initial response. I support ongoing efforts for smoking cessation, and provide specific instructions to mitigate drug-related constipation and to ensure adequate hydration. Albuterol inhaler use is suggested based on patient necessity, with instructions to assess respiratory symptoms thoroughly. Routine follow-up with orthopedics is vital to evaluate rib pain, assessing any need for extending medical leave, conditioned by health progression. This note was constructed using voice recognition software. While every effort has been made to ensure accuracy and supervisor asbestos textile, still areas may have been included sometimes these areas may affect the content or meeting of the given symptoms. Total time spent caring for the patient today was 20 minutes. This includes time spent before the visit reviewing the chart, time spent during the visit, and time spent after the visit and documentation. Patient was informed and verbally consented to the use of an ambient scribe for clinic note documentation during this visit. Medications: New 2 tizanidine 6 mg PO BEDTIME 20 caps 0RF Refilled 2 meloxicam 15 mg PO DAILY 20 tabs 0RF
[2024-12-22 08:59] VITALS: BP 130/70; PULSE 71; TEMP 36.3; O2SAT 98; BMI 26.8
== END 2024-12-22 09:35 | disposition home or self-care (01) ==
LOC: HO.HMCH 08:29
PROVIDERS: PCP Internal Medicine
DX: J44.89 Other specified chronic obstructive pulmonary disease (principal); M79.18 Myalgia, other site; M25.511 Pain in right shoulder; R03.0 Elevated blood-pressure reading, without diagnosis of hypertension; F17.210 Nicotine dependence, cigarettes, uncomplicated; R07.81 Pleurodynia

== ENCOUNTER → 2024-12-22 08:28 | Outpatient (BNVA) | payer OTHER, SELFPAY | PROVIDERS: PCP Internal Medicine | DX: J44.89 Other specified chronic obstructive pulmonary disease (principal); M79.18 Myalgia, other site; M25.511 Pain in right shoulder; R03.0 Elevated blood-pressure reading, without diagnosis of hypertension; R07.81 Pleurodynia; F17.210 Nicotine dependence, cigarettes, uncomplicated | CPT/HCPCS: 99212 ==

== ENCOUNTER 2025-01-05 13:48 | Outpatient (AMB) | payer OTHER, SELFPAY ==
--- NOTE | 2025-01-05 13:50 | MHC.OFFVIS ---
Vital Signs 01/05/25 13:51 Height 5 ft 9 in Weight 179 lb 2 oz BMI 26.4 BP 134/100 H Blood Pressure Location Rt brachial Position Sitting Pulse 71 Pulse Source Pulse Oximeter Pulse Oximetry (%) 98 Oxygen Delivery Method Room Air Intake Visit Reasons: COPD Allergies varenicline [From Chantix] Adverse Reaction (Intermediate, Verified 01/05/25 13:54) vivid dreams HPI HPI COPD: Details: Skip is a pleasant 44-year-old male, current smoker, with a 20+ pack-year history, with underlying iron deficiency anemia and asthma since childhood. Patient reports excellent control of respiratory symptoms on current regimen of Breo 200 mcg and Incruse, rarely requiring albuterol MDI. He currently denies any wheezing, chest tightness or dyspnea. He continues to report intermittent productive cough, however no other symptoms suggestive of infectious process. He continues to smoke 5 cigarettes per day supplementing with NRT with good effect. He is motivated to quit. He denies any visits to urgent care or hospitalizations related to respiratory distress since the last visit. [facility] Medical History Sleep disturbance, unspecified Third degree malagon of multiple sites Right upper quadrant pain Chronic diarrhea Left lower quadrant pain Bleeding hemorrhoids Encounter for smoking cessation counseling Surgical History Hx of endoscopy Hx of arthroscopy of knee (~05/2023) Hx of colonoscopy H/O hemorrhoidectomy (03/19/22) Family History Unknown Diabetes Father Colon cancer, Onset Age: 62 Mother Depression with anxiety Social History (Updated 01/05/25 @ 13:54 by Sophy Jensen CMA) Housing: Apartment Are you a primary caregiver assisted living to a significant other at home: No Do you presently have visiting nurse or other home services: No Alcohol intake: current Alcohol intake frequency: does not drink Alcohol type: beer Patient Tobacco Use Status: Current everyday Tobacco user Tobacco use type: Cigarette Cigarette Packs Per Day: 0.25 Cigarettes Per Day: 5 Years Smoked: quit 1 day ago/ using patches. e-Cigarette/Vaping Use: Never Used Second Hand Smoke Exposure: Yes Substance Use Type: Marijuana service: No Current occupational status: employed Current occupation: [employer] Current occupational exposures/hazards: No Cognitive needs: No Hearing needs: No Vision needs: Yes Review of Systems Const Denies chills, Denies excessive sweating, Denies fever(s), Denies headache(s) and Denies night sweats Eyes Denies dry eyes, Denies irritation and Denies itchy eyes ENT Reports Normal hearing present, Denies headache(s), Denies nasal congestion, Denies nasal discharge, Denies post nasal drip and Denies sore throat Card Denies chest pain, Denies chest pain at rest, Denies chest pain with activity, Denies claudication, Denies leg edema, Denies dyspnea, Denies dyspnea on exertion, Denies orthopnea and Denies paroxysmal nocturnal dyspnea Resp Denies chest congestion, Denies excessive phlegm production, Denies pain on inspiration, Denies pain with cough, Denies dyspnea, Denies dyspnea on exertion, Denies stridor and Denies wheezing Musc Denies myalgias Neuro Reports Normal hearing present and Denies headache(s) Endo Denies excessive sweating Randolph/Lymph Denies lymphadenopathy Aller/Immun Denies itchy eyes, Denies seasonal rhinorrhea and Denies wheezing Physical Exam Vital Signs: Last Vital Signs Pulse 71 01/05/25 13:51 BP 134/100 H 01/05/25 13:51 Pulse Ox 98 01/05/25 13:51 Oxygen Delivery Method Room Air 01/05/25 13:51 BMI result Body Mass Index 26.4 Const General: cooperative, healthy appearing, comfortable, no acute distress, well developed and alert Orientation/consciousness: patient oriented x3 Limitations: no limitations HEENT Head: Yes normal to inspection, Yes normocephalic and Yes atraumatic Ears: hearing grossly normal bilaterally and external ears normal Eyes General: appearance normal, both eyes and all related structures Eyelids: Yes eyelids normal Sclerae: sclerae normal EOM: EOMs intact bilaterally Neck Neck: Yes normal visual inspection and Yes no lymphadenopathy Lymphatic: no lymphadenopathy noted Chest Chest palpation & inspection: normal inspection of the chest Resp Effort & Inspection: normal respiratory effort, able to speak in complete sentences, no audible wheezes, no cough, no stridor, not tachypneic, no tripod positioning and no use of accessory muscles Auscultation: clear to auscultation bilaterally Cardio Jugular venous distension: no JVD Rate: regular rate Rhythm: regular rhythm Skin Other: warm, dry General skin exam: no rashes or lesions noted Neuro General: patient oriented x3 Cranial nerves: Yes Normal hearing present Cognition (Neuro): normal cognition Gait exam (Neuro): Normal gait present Extrem General: Yes normal to inspection, Yes capillary refill normal, Yes no clubbing, cyanosis or edema and Yes no pedal edema Psych Appearance: grossly normal and well kempt Speech and movement: Normal speech and movement present and Clear speech present Affect: normal affect Attitude: cooperative Thought process: Normal thought process present Thought content: Normal thought content present Insight: Good insight present (Psych) Judgement: Good judgement present (Psych) Assessment & Plan Assessment & Plan (1) Asthma-COPD overlap syndrome: Code(s): J44.89 - Other specified chronic obstructive pulmonary disease Category: Medical (2) Nicotine dependence, cigarettes, uncomplicated: Code(s): F17.210 - Nicotine dependence, cigarettes, uncomplicated Category: Medical (3) Cough: Code(s): R05.9 - Cough, unspecified Category: Medical Plan Reviewed RAST which was negative. At this time, Skip reports excellent control of respiratory symptoms on current regimen, advised to continue. Smoking cessation reviewed. All questions were answered and patient is in agreement plan. Will follow-up in 3 months or sooner if needed. Coding Level of Care Code Est Pt Level 4 (09140) Diagnoses Asthma-COPD overlap syndrome J44.89 Nicotine dependence, cigarettes, uncomplicated F17.210 Cough R05.9
[2025-01-05 13:51] VITALS: BP 134/100; PULSE 71; O2SAT 98; BMI 26.4
== END 2025-01-05 14:38 | disposition home or self-care (01) ==
LOC: HO.HPSW 13:49
PROVIDERS: PCP Internal Medicine; Visit Provider Nurse Practitioner Family
DX: J44.89 Other specified chronic obstructive pulmonary disease (principal); F17.210 Nicotine dependence, cigarettes, uncomplicated; R05.9 Cough, unspecified
CPT/HCPCS: 99214

== ENCOUNTER → 2025-01-05 13:48 | Outpatient (BNVA) | payer OTHER, SELFPAY | PROVIDERS: PCP Internal Medicine; Visit Provider Nurse Practitioner Family | DX: J44.89 Other specified chronic obstructive pulmonary disease (principal); F17.210 Nicotine dependence, cigarettes, uncomplicated | CPT/HCPCS: 99212 ==

== ENCOUNTER 2025-01-31 13:54 | Outpatient (AMB) | payer OTHER, SELFPAY ==
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
== END 2025-01-31 13:55 | disposition home or self-care (01) ==
LOC: HO.HOP 13:54
PROVIDERS: PCP Internal Medicine; Visit Provider Clinical Nurse Specialist Psychiatric/Mental Health
DX: F41.1 Generalized anxiety disorder (principal); F32.0 Major depressive disorder, single episode, mild
CPT/HCPCS: 99214

== ENCOUNTER 2025-02-28 09:45 | Outpatient (AMB) | payer OTHER, SELFPAY ==
--- NOTE | 2025-02-28 09:56 | MHC.PC.OV ---
Vital Signs 02/28/25 09:58 02/28/25 10:19 Height 5 ft 9 in Weight 186 lb 4 oz BMI 27.5 BP 140/80 H 148/98 H Blood Pressure Location Lt brachial Lt brachial Position Sitting Pulse 68 Pulse Source Pulse Oximeter Temp 97.3 F Temp Source Temporal Artery Scan Pulse Oximetry (%) 97 Oxygen Delivery Method Room Air Intake Visit Reasons: dental clearance- form on Solon's board Intake Note: Patient is here for a Pre-op for Dental surgery scheduled with [facility] on unknown . Hull Sorter Required: No Bone Char Operator: Not Required per policy Accompanied by: Self / Same As Patient Allergies varenicline (From [employer]) Adverse Reaction (Intermediate, Verified 02/28/25 10:14) vivid dreams Medication List - Last Reconciled 02/28/25 by Tran Lewis PA-C atorvastatin 20 mg PO BEDTIME 90 days bupropion HCl XL (Wellbutrin XL) 150 mg PO QAM cholecalciferol (vitamin D3) 50 mcg PO DAILY citalopram (Celexa) 20 mg PO DAILY cyanocobalamin (vitamin B-12) (Vitamin B-12) 500 mcg PO DAILY 90 days ferrous sulfate 325 mg PO DAILY fluticasone furoate-vilanterol 200-25 mcg/dose (Breo Ellipta) 1 inh inhalation DAILY hydrocortisone 2.5% 1 appl [place] BID-QID PRN 2 weeks methocarbamol 750 mg PO BEDTIME nicotine 1 patch transdermal Q24H nicotine (polacrilex) (Nicorette) 2 mg buccal Q2H umeclidinium 62.5 mcg/actuation (Incruse Ellipta) 1 inh inhalation DAILY Ventolin HFA 90 mcg/actuation (albuterol sulfate) 90 mcg inhalation DAILY 30 days NS Tobacco use date assessed: 02/28/25 Dental Screening Dental Screen Date: 11/10/24 HPI dental clearance- form on Michelle's board HPI Details 44-year-old male with past medical history of tobacco abuse, hypertension, chronic diarrhea, cervical radiculopathy, COPD, anxiety disorder, depression and asthma last seen 11/2024 coming in for pre op. Hypertension: Patient has a official diagnosis of hypertension plan to start on losartan 25 mg today. Blood pressure is not well managed currently plan to follow up in 1-2 weeks with nursing navigation to repeat blood pressure check. Patient to continue to monitor blood pressure at home. [facility] Medical History Sleep disturbance, unspecified Third degree malagon of multiple sites Right upper quadrant pain Chronic diarrhea Left lower quadrant pain Bleeding hemorrhoids Encounter for smoking cessation counseling Surgical History Hx of endoscopy Hx of arthroscopy of knee (~05/2023) Hx of colonoscopy H/O hemorrhoidectomy (03/19/22) Family History Unknown Diabetes Father Colon cancer, Onset Age: 62 Mother Depression with anxiety Social History Housing: Apartment Are you a primary intensive care medicine specialist to a significant other at home: No Do you presently have visiting nurse or other home services: No Alcohol intake: current Alcohol intake frequency: does not drink Alcohol type: beer Patient Tobacco Use Status: Current someday Tobacco user Tobacco use type: Cigarette Cigarette Packs Per Day: 0.25 Cigarettes Per Day: 2 Years Smoked: quit 1 day ago/ using patches. e-Cigarette/Vaping Use: Never Used Second Hand Smoke Exposure: Yes Substance Use Type: Marijuana service: No Current occupational status: employed Current occupation: [employer] Current occupational exposures/hazards: No Cognitive needs: No Hearing needs: No Vision needs: Yes Questionnaire Thrive Questionnaire Date Thrive assessed: 09/08/24 I am a: Patient What is your living situation today?: I choose not to answer this question Within the past 12 months, did the food you bought not last and you didn't have the money to get more?: I choose not to answer this question Within the past 12 months, did you worry whether your food would run out before you got money to buy more?: I choose not to answer this question Do you have trouble paying for medicines?: I choose not to answer this question Do you have trouble getting transportation to medical appointments?: I choose not to answer this question Do you have trouble paying your heating and electricity bill?: I choose not to answer this question Do you have trouble taking care of your child, family member or friend?: I choose not to answer this question Do you have trouble with day-to-day activities such as bathing, preparing meals, shopping, managing finances, etc.?: I choose not to answer this question Are you currently unemployed and looking for a job?: I choose not to answer this question Are you interested in more education?: I choose not to answer this question Please select the resources that you would like help with: None Currently or been in a relationship where the following occur: I choose not to answer THRIVE Score: 0 TOLU-7 AMB Questionnaire TOLU-7 Date TOLU - 7 assessed: 09/08/24 Source: Developed by Drs. Flynn Rand, Alia Caldwell, Rob Clark and colleagues, with an educational michael from [employer]. Review of Systems Const Denies body aches, Denies chills, Denies fever(s), Denies headache(s) and Denies poor appetite Eyes Reports no additional complaints ENT Denies dysphagia, Denies dizziness, Denies headache(s) and Denies odynophagia Card Denies chest pain, Denies syncope, Denies edema, Denies irregular heart rhythm, Denies lightheadedness and Denies dyspnea Resp Denies cough and Denies dyspnea GI Denies abdominal pain, Denies constipation, Denies dysphagia, Denies diarrhea, Denies nausea, Denies odynophagia and Denies vomiting Reports no additional complaints Musc Reports no additional complaints and Denies abnormal gait Skin/Breast Reports system reviewed and no additional complaints, except as documented Neuro Denies abnormal gait, Denies dizziness, Denies syncope and Denies headache(s) Psych Reports no additional complaints Physical exam (Primary Care) Vital Signs: Last Vital Signs Temp 97.3 F 02/28/25 09:58 Pulse 68 02/28/25 09:58 BP 148/98 H 02/28/25 10:19 Pulse Ox 97 02/28/25 09:58 Oxygen Delivery Method Room Air 02/28/25 09:58 BMI result Body Mass Index 27.5 Tobacco/Smoking Status: Tobacco use Status Tobacco use date assessed 02/28/25 02/28/25 10:05 Patient Tobacco Use Status Current someday Tobacco 02/28/25 10:05 Tobacco use type Cigarette 02/28/25 10:05 e-Cigarette/Vaping Use Never Used 02/28/25 10:05 Thrive Assessment: Date of Thrive Assessment Date Thrive assessed 09/08/24 02/28/25 10:05 Currently or been in a relationship where the following occur: I choose not to answer Const General: cooperative, healthy appearing, comfortable and no acute distress Orientation/consciousness: patient oriented x3 [facility] Head: Yes normocephalic Ears: hearing grossly normal bilaterally General nose exam: Normal external nose present Eyes General: appearance normal, both eyes and all related structures Conjunctivae: conjunctivae normal Neck Neck: Yes full ROM and Yes no lymphadenopathy Resp Effort & Inspection: normal respiratory effort Auscultation: clear to auscultation bilaterally, no crackles, no rales, no rhonchi and no wheezes Cardio Rate: regular rate Rhythm: regular rhythm Skin General skin exam: no rashes or lesions noted Neuro General: patient oriented x3 Gait exam (Neuro): Normal gait present Extrem General: Yes normal to inspection, Yes full ROM and No edema Psych Affect: normal affect Attitude: cooperative Insight: Good insight present (Psych) Judgement: Good judgement present (Psych) Coding Level of Care Code Est Pt Level 3 (86322) Diagnoses Pre-op evaluation Z01.818 Assessment & Plan Assessment & Plan (1) Pre-op evaluation: Code(s): Z01.818 - Encounter for other preprocedural examination Category: Medical Plan: Patient currently has elevated blood pressure in the office 140/98 and has had several at home readings that are uncontrolled. Highest blood pressure reading at home was 160/108. He has been having elevated blood pressures for some time and has not had treatment has not yet. Plan to start on losartan 25 mg at this time and continue to monitor the blood pressure at home. He will have an appointment with nursing navigation in 1-2 weeks to confirm blood pressure is normalizing. At this time he is not cleared for surgery as his blood pressures are not well controlled and may potentially dangerous. I advised him to discuss with his dentist at this time. If blood pressure has normalized at nursing visit preoperative clearance will be granted. Patient is otherwise cleared once blood pressure improves. Plan This note was constructed using voice recognition software. While every effort has been made to ensure accuracy and instructor of nursing, still areas may have been included sometimes these areas may affect the content or meeting of the given symptoms. Total time spent caring for the patient today was 20 minutes. This includes time spent before the visit reviewing the chart, time spent during the visit, and time spent after the visit and documentation. Medications: New losartan 25 mg PO DAILY 90 tabs 0RF Refilled nicotine (polacrilex) (Nicorette) 2 mg buccal Q2H 100 ea 0RF
[2025-02-28 09:58] VITALS: BP 140/80; PULSE 68; TEMP 36.3; O2SAT 97; BMI 27.5
[2025-02-28 10:19] VITALS: BP 148/98
== END 2025-02-28 10:25 | disposition home or self-care (01) ==
LOC: HO.HMCH 09:46
PROVIDERS: PCP Internal Medicine
DX: Z01.818 Encounter for other preprocedural examination (principal)

== ENCOUNTER → 2025-02-28 09:45 | Outpatient (BNVA) | payer OTHER, SELFPAY | PROVIDERS: PCP Internal Medicine | DX: Z01.818 Encounter for other preprocedural examination (principal); I10 Essential (primary) hypertension; R19.7 Diarrhea, unspecified; M54.12 Radiculopathy, cervical region; J44.9 Chronic obstructive pulmonary disease, unspecified; F41.9 Anxiety disorder, unspecified; F32.A Depression, unspecified; J45.909 Unspecified asthma, uncomplicated | CPT/HCPCS: 99212 ==

== ENCOUNTER 2025-03-07 10:52 | Outpatient (AMB) | payer OTHER, SELFPAY ==
--- NOTE | 2025-03-07 10:54 | MHC.PC.OV ---
Vital Signs 03/07/25 10:55 03/07/25 12:48 03/07/25 12:48 Height 5 ft 9 in Weight 189 lb BMI 27.9 BP 142/92 H 120/78 122/78 Blood Pressure Location Lt brachial Lt brachial Lt brachial Position Sitting Sitting Sitting Pulse 100 Pulse Source Pulse Oximeter Temp 97.3 F Temp Source Temporal Artery Scan Pulse Oximetry (%) 98 Oxygen Delivery Method Room Air Intake Visit Reasons: 1 week after pre op Allergies varenicline (From Chantix) Adverse Reaction (Intermediate, Verified 03/07/25 11:10) vivid dreams Medication List - Last Reconciled 03/07/25 by Tran Lewis PA-C atorvastatin 20 mg PO BEDTIME 90 days bupropion HCl XL (Wellbutrin XL) 150 mg PO QAM cholecalciferol (vitamin D3) 50 mcg PO DAILY citalopram (Celexa) 20 mg PO DAILY cyanocobalamin (vitamin B-12) (Vitamin B-12) 500 mcg PO DAILY 90 days ferrous sulfate 325 mg PO DAILY fluticasone furoate-vilanterol 200-25 mcg/dose (Breo Ellipta) 1 inh inhalation DAILY hydrocortisone 2.5% 1 appl [place] BID-QID PRN 2 weeks losartan 25 mg PO DAILY nicotine 1 patch transdermal Q24H nicotine (polacrilex) (Nicorette) 2 mg buccal Q2H umeclidinium 62.5 mcg/actuation (Incruse Ellipta) 1 inh inhalation DAILY Ventolin HFA 90 mcg/actuation (albuterol sulfate) 90 mcg inhalation DAILY 30 days NS Tobacco use date assessed: 02/28/25 Dental Screening Dental Screen Date: 11/10/24 Did you have a dental visit in the last 12 months?: Yes Did you have a dental problem in the last 6 months where you did not have access to dental care?: No Was dental information given to patient?: Patient has dentist HPI 1 week after pre op HPI Details 44-year-old male with past medical history of tobacco abuse, hypertension, chronic diarrhea, cervical radiculopathy, COPD, anxiety disorder, depression and asthma last seen 01/2025 coming in for pre op follow up. Hypertension: 120/78 today in the office - his readings at home have been improving. His blood pressure readings 1st thing in the morning right after taking his blood pressure medication are typically elevated however they do lower throughout the day. [facility] Medical History Sleep disturbance, unspecified Third degree malagon of multiple sites Right upper quadrant pain Chronic diarrhea Left lower quadrant pain Bleeding hemorrhoids Encounter for smoking cessation counseling Surgical History Hx of endoscopy Hx of arthroscopy of knee (~05/2023) Hx of colonoscopy H/O hemorrhoidectomy (03/19/22) Family History Unknown Diabetes Father Colon cancer, Onset Age: 62 Mother Depression with anxiety Social History Housing: Apartment Are you a primary housekeeper child care to a significant other at home: No Do you presently have visiting nurse or other home services: No Alcohol intake: current Alcohol intake frequency: does not drink Alcohol type: beer Patient Tobacco Use Status: Former Tobacco user Tobacco use type: Cigarette Cigarette Packs Per Day: 0.25 Cigarettes Per Day: 2 Years Smoked: quit 1 day ago/ using patches. e-Cigarette/Vaping Use: Never Used Second Hand Smoke Exposure: Yes Substance Use Type: Marijuana service: No Current occupational status: employed Current occupation: [employer] Current occupational exposures/hazards: No Cognitive needs: No Hearing needs: No Vision needs: Yes Questionnaire PHQ-9 Over the last 2 weeks, how often have you been bothered by any of the following problems? 1. Little interest or pleasure in doing things: not at all 2. Feeling down, depressed, or hopeless: not at all 3. Trouble falling or staying asleep, or sleeping too much: not at all 4. Feeling tired or having little energy: several days 5. Poor appetite or overeating: several days 6. Feeling bad about yourself - or that you are a failure or have let yourself or your family down: not at all 7. Trouble concentrating on things, such as reading the newspaper or watching television: not at all 8. Moving or speaking so slowly that other people could have noticed. Or the opposite - being so fidgety or restless that you have been moving around a lot more than usual: not at all 9. Thoughts that you would be better off or of hurting yourself in some way: not at all Total score: 2 Source: Developed by Drs. Flynn Rand, Alia Caldwell, Rob Clark and colleagues, with an educational michael from [employer]. Thrive Questionnaire Date Thrive assessed: 09/08/24 I am a: Patient What is your living situation today?: I choose not to answer this question Within the past 12 months, did the food you bought not last and you didn't have the money to get more?: I choose not to answer this question Within the past 12 months, did you worry whether your food would run out before you got money to buy more?: I choose not to answer this question Do you have trouble paying for medicines?: I choose not to answer this question Do you have trouble getting transportation to medical appointments?: I choose not to answer this question Do you have trouble paying your heating and electricity bill?: I choose not to answer this question Do you have trouble taking care of your child, family member or friend?: I choose not to answer this question Do you have trouble with day-to-day activities such as bathing, preparing meals, shopping, managing finances, etc.?: I choose not to answer this question Are you currently unemployed and looking for a job?: I choose not to answer this question Are you interested in more education?: I choose not to answer this question Please select the resources that you would like help with: None Currently or been in a relationship where the following occur: I choose not to answer THRIVE Score: 0 AUDIT C Alcohol Use Questionnaire (AUDIT-C) 1. How often do you have a drink containing alcohol?: 2-4 times a month 2. How many drinks containing alcohol do you have on a typical day when you are drinking?: 5 or 6 3. How often do you have six or more drinks on one occasion?: Less than monthly Total Score: 5 TOLU-7 AMB Questionnaire TOLU-7 Date TOLU - 7 assessed: 09/08/24 Feeling nervous, anxious, or on edge: 3 = Nearly every day Not being able to stop or control worryin = Not at all Worrying too much about different things: 1 = Several days Trouble relaxin = Not at all Being so restless that it is hard to sit still: 0 = Not at all Becoming easily annoyed or irritable: 2 = More than half the days Feeling afraid as if something awful might happen: 0 = Not at all Total TOLU-7 score (0-4 normal; 5-9 mild; 10-14 moderate; 15-21 severe): 6 Source: Developed by Drs. Flynn Rand, Alia Caldwell, Rob Clark and colleagues, with an educational michael from [employer]. Review of Systems Const Denies body aches, Denies chills, Denies fever(s), Denies headache(s) and Denies poor appetite Eyes Reports no additional complaints ENT Denies dysphagia, Denies dizziness, Denies headache(s) and Denies odynophagia Card Denies chest pain, Denies syncope, Denies edema, Denies irregular heart rhythm, Denies lightheadedness and Denies dyspnea Resp Denies cough and Denies dyspnea GI Denies abdominal pain, Denies constipation, Denies dysphagia, Denies diarrhea, Denies nausea, Denies odynophagia and Denies vomiting Reports no additional complaints Musc Reports no additional complaints and Denies abnormal gait Skin/Breast Reports system reviewed and no additional complaints, except as documented Neuro Denies abnormal gait, Denies dizziness, Denies syncope and Denies headache(s) Psych Reports no additional complaints Physical exam (Primary Care) Vital Signs: Last Vital Signs Temp 97.3 F 03/07/25 10:55 Pulse 100 03/07/25 10:55 BP 142/92 H 03/07/25 10:55 Pulse Ox 98 03/07/25 10:55 Oxygen Delivery Method Room Air 03/07/25 10:55 BMI result Body Mass Index 27.9 Tobacco/Smoking Status: Tobacco use Status Tobacco use date assessed 02/28/25 03/07/25 11:02 Patient Tobacco Use Status Former Tobacco user 03/07/25 11:02 Tobacco use type Cigarette 03/07/25 11:02 e-Cigarette/Vaping Use Never Used 03/07/25 11:02 PHQ-9: PHQ-9 Score PHQ-9: Total score 2 03/07/25 12:11 Thrive Assessment: Date of Thrive Assessment Date Thrive assessed 09/08/24 03/07/25 11:02 Currently or been in a relationship where the following occur: I choose not to answer Const General: cooperative, healthy appearing, comfortable and no acute distress Orientation/consciousness: patient oriented x3 HENMT Head: Yes normocephalic Ears: hearing grossly normal bilaterally General nose exam: Normal external nose present Eyes General: appearance normal, both eyes and all related structures Conjunctivae: conjunctivae normal Neck Neck: Yes full ROM and Yes no lymphadenopathy Resp Effort & Inspection: normal respiratory effort Auscultation: clear to auscultation bilaterally, no crackles, no rales, no rhonchi and no wheezes Cardio Rate: regular rate Rhythm: regular rhythm Skin General skin exam: no rashes or lesions noted Neuro General: patient oriented x3 Gait exam (Neuro): Normal gait present Extrem General: Yes normal to inspection, Yes full ROM and No edema Psych Affect: normal affect Attitude: cooperative Insight: Good insight present (Psych) Judgement: Good judgement present (Psych) Coding Level of Care Code Est Pt Level 3 (16519) Diagnoses Hypertension I10 Pre-op evaluation Z01.818 Assessment & Plan Assessment & Plan (1) Hypertension: Code(s): I10 - Essential (primary) hypertension Category: Medical Plan: Continue on current blood pressure medication. Avoid salt intake and encourage healthy diet and regular exercise. Patient is to continue on the losartan as his blood pressure in the office is in acceptable range 120/78 which is mildly lower than his at home readings. His blood pressure readings after allowing the medication to take effect are within normal range. Of note when taking the blood pressure several times manually 120/78 was consistent. I also use the patient's blood pressure cuff to check the blood pressure in the office which was 133/93 indicating a slightly more elevated blood pressure than manual. Advised patient to continue to monitor his blood pressure at home and reach out to the office if they should become higher. (2) Pre-op evaluation: Code(s): Z01.818 - Encounter for other preprocedural examination Category: Medical Plan: Patient's blood pressure is under better control and is in an acceptable range for dental surgery. I did advise the patient to take his blood pressure medication 2-3 hours prior to his dental procedure as this will allow the medication to begin working. If blood pressure is significantly elevated for the procedure it is up to the performing provider to decide if surgery is appropriate. Plan This note was constructed using voice recognition software. While every effort has been made to ensure accuracy and cmm inspector, still areas may have been included sometimes these areas may affect the content or meeting of the given symptoms. Total time spent caring for the patient today was 15 minutes. This includes time spent before the visit reviewing the chart, time spent during the visit, and time spent after the visit and documentation. Medications: New nicotine 1 patch transdermal Q24H 14 ea 0RF Discontinued nicotine Discontinued Reason: Patient Completed Course 1 patch transdermal Q24H 30 ea 0RF
[2025-03-07 10:55] VITALS: BP 142/92; PULSE 100; TEMP 36.3; O2SAT 98; BMI 27.9
[2025-03-07 12:48] VITALS: BP 120/78; BP 122/78
== END 2025-03-07 12:03 | disposition home or self-care (01) ==
LOC: HO.HMCH 10:53
PROVIDERS: PCP Internal Medicine
DX: I10 Essential (primary) hypertension (principal); Z01.818 Encounter for other preprocedural examination

== ENCOUNTER → 2025-03-07 10:52 | Outpatient (BNVA) | payer OTHER, SELFPAY | PROVIDERS: PCP Internal Medicine | DX: Z01.818 Encounter for other preprocedural examination (principal); I10 Essential (primary) hypertension; K59.09 Other constipation; M54.12 Radiculopathy, cervical region; J44.9 Chronic obstructive pulmonary disease, unspecified; F41.9 Anxiety disorder, unspecified; F32.A Depression, unspecified; J45.909 Unspecified asthma, uncomplicated | CPT/HCPCS: 99212 ==

== ENCOUNTER 2025-06-28 10:54 | Outpatient (AMB) | payer OTHER, SELFPAY ==
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
== END 2025-06-28 11:30 | disposition home or self-care (01) ==
LOC: HO.HOP 10:54
PROVIDERS: PCP Internal Medicine; Visit Provider Clinical Nurse Specialist Psychiatric/Mental Health
DX: F41.1 Generalized anxiety disorder (principal); F32.0 Major depressive disorder, single episode, mild
CPT/HCPCS: 99214

== ENCOUNTER → 2025-06-28 10:54 | Outpatient (BNVA) | payer OTHER, SELFPAY | PROVIDERS: PCP Internal Medicine; Visit Provider Clinical Nurse Specialist Psychiatric/Mental Health | DX: F32.0 Major depressive disorder, single episode, mild (principal); F41.1 Generalized anxiety disorder; Z79.899 Other long term (current) drug therapy | CPT/HCPCS: 99212 ==